=== PATIENT | female | born 1945 | race Caucasian/White ===

== ENCOUNTER 2017-07-11 18:40 | Emergency (ER) | payer MEDICARE ==
[2017-07-11 19:41] LABS: ADD URINE CULTURE? NO (NO); Bilirubin NEGATIVE (NEGATIVE); Blood NEGATIVE Ery/ul (0-5); COMPLETE URINE MICROSCOPIC? NO; Collection Type CCMS; Glucose NEGATIVE (NEGATIVE); Leukocyte Esterase NEGATIVE (NEGATIVE)
[2017-07-11] MEDS ORDERED: BABY ASPIRIN 81 MG CHEW PO ONE (19:57)
[2017-07-11] MEDS ORDERED: Sodium Chloride 0.9% 1000 ML 1,000 ML IV SCH (20:00)
--- NOTE | 2017-07-11 20:00 | ERPHSYRPT ---
- History of Present Illness Time Seen by Provider: 07/11/17 19:50 Source: patient Exam Limitations: no limitations Patient Subjective Stated Complaint: pt notes none to little urine output for last 24 hours -pt had bm yesterday - no fever no vomiting co lower abd pain states in the past this happened and pt was dx with "renal failure" states he "doesn't feel well" she has been trying to drink a lot of water Triage Nursing Assessment: pt is awake and alert and able to answer questions Physician History: FOR THE PAST 3 DAYS PT HAS HAD SUPRAPUBIC PAIN, LOW BACK PAIN, NAUSEA, SORE THROAT, LEFT EARACHE AND DYSURIA; FOR THE PAST 2 DAYS INTERMITTENT LOWER MID ANTERIOR CHEST PAIN LASTING UP TO 30 MINUTES PER EPISODE WITH SHORTNESS OFAIR. Allergies/Adverse Reactions: amoxicillin Adverse Reaction (Verified 07/11/17 19:47) Home Medications: Alprazolam 0.5 mg [xanAX 0.5 MG] 0.5 mg PO HS 03/30/12 [History] Duloxetine HCl 30 mg [Cymbalta 30 MG Capsule] 30 mg PO DAILY 03/30/12 [ History] Estradiol 1 mg PO DAILY 03/30/12 [History] Hydrocodone/APAP 10/325 mg [[place] 10/325 MG Tablet] 1 tab PO Q4H PRN PRN 03/30/12 [History] Lisinopril 2.5 mg PO DAILY 03/30/12 [History] Melatonin/Pyridoxine HCl (B6) [Melatonin 5 mg Tablet] 10 mg PO HS 03/30/12 [ History] Metformin HCl 500 mg [Glucophage 500 MG] 500 mg PO BID 03/30/12 [History] Nefazodone HCl 200 mg PO BID 03/30/12 [History] [place]-3 Fatty Acids/Fish Oil [Fish Oil 1,000 mg Softgel] 2 cap PO HS 03/30/12 [ History] Verapamil HCl [Verapamil ER] 240 mg PO HS 03/30/12 [History] Levothyroxine Sodium 25 mcg PO DAILY 03/31/12 [History] Polyethylene Glycol 3350 [Miralax] 1 capful PO DAILY 03/31/12 [History] Gabapentin [Neurontin] 300 mg PO TID 08/20/15 [History] Hx Tetanus, Diphtheria Vaccination/Date Given: No Hx Influenza Vaccination/Date Given: Yes Hx Pneumococcal Vaccination/Date Given: No - Review of Systems Ears, Nose, & Throat: Throat Pain Respiratory: Dyspnea Cardiac: Chest Pain Abdominal/Gastrointestinal: Abdominal Pain (SUPRAPUBIC PAIN), Nausea Genitourinary Symptoms: Dysuria Musculoskeletal: Back Pain (LOW) All Other Systems: Reviewed and Negative - Past Medical History Pertinent Past Medical History: Yes Neurological History: No Pertinent History ENT History: Other Cardiac History: Angina, Hypertension Respiratory History: No Pertinent History Endocrine Medical History: Diabetes Type II, Hypothyroidism Musculoskeletal History: Arthritis, Fibromyalgia, Rheumatoid Arthritis GI Medical History: No Pertinent History History: No Pertinent History Psycho-Social History: No Pertinent History Female Reproductive Disorders: Other Other Medical History: 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 - Past Surgical History Past Surgical History: Yes Neuro Surgical History: No Pertinent History Cardiac: No Pertinent History Respiratory: No Pertinent History Gastrointestinal: No Pertinent History Genitourinary: No Pertinent History Musculoskeletal: Orthopedic Surgery Female Surgical History: Hysterectomy Other Surgical History: Lower eyelid syurgery to remove cancer. - Social History Smoking Status: Never smoker Exposure to second hand smoke: No Drug Use: none Patient Lives Alone: No - Female History Hx Last Menstrual Period: na - Nursing Vital Signs Nursing Vital Signs: Initial Vital Signs Temperature 97.6 F 07/11/17 19:36 Pulse Rate 76 07/11/17 19:36 Respiratory Rate 18 07/11/17 19:36 Blood Pressure 136/64 07/11/17 19:36 O2 Sat by Pulse Oximetry 95 07/11/17 19:36 Pain Scale Pain Intensity 0 - Physical Exam General Appearance: alert Eye Exam: PERRL/EOMI Ears, Nose, Throat Exam: TMs normal, pharynx normal, moist mucous membranes Neck Exam: normal inspection Respiratory Exam: lungs clear Cardiovascular Exam: normal heart sounds Gastrointestinal/Abdomen Exam: soft, normal bowel sounds, tenderness (MILD SUPRAPUBIC TENDERNESS) Back Exam: normal range of motion Extremity Exam: other ((2) PLANTAR WARTS ON RIGHT FOREFOOT) Neurologic Exam: alert, cooperative Skin Exam: No cyanosis SpO2 Interpretation: normal SpO2: 95 Oxygen Delivery: Room Air - Course Nursing assessment & vital signs reviewed: Yes EKG Interpreted by Me: RATE (69), Sinus Rhythm, NORMAL AXIS, NORMAL INTERVALS - Radiology Exams Chest X-ray Interpretation: Interpreted by me, No Pneumonia - CT Exams Abdomen/Pelvis CT Interpretation: Tele-radiologist Report (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 RENAL ATROPHY AND LOBULATION. CATHETER IN THE BLADDER. ) Ordered Tests: Active Orders 24 hr Category Date Time Status ACCUCHECK [Accucheck] STAT Care 07/11/17 19:45 Active Soccer Ball Assembler STAT Care 07/11/17 19:58 Active Catheter-[place] STAT Care 07/11/17 19:57 Active Clean Catch Urine Specimen STAT Care 07/11/17 19:33 Active EKG-ER Only STAT Care 07/11/17 19:57 Active IV Insertion STAT Care 07/11/17 19:45 Active Oxygen-ED Only NASAL CANNULA 2 lpm Care 07/11/17 19:57 Active Pulse Oximetry (ED) STAT Care 07/11/17 19:57 Active ABDOMEN AND PELVIS W/0 CONTRAS [CT] Stat Exams 07/11/17 21:22 Taken CHEST 1 VIEW (PORTABLE) Stat Exams 07/11/17 19:58 Taken AMYLASE Stat Lab 07/11/17 19:55 Completed CBC W DIFF Stat Lab 07/11/17 19:55 Completed CMP Stat Lab 07/11/17 19:55 Completed LIPASE Stat Lab 07/11/17 19:55 Completed MAGNESIUM Stat Lab 07/11/17 19:55 Completed NT PRO BNP Stat Lab 07/11/17 19:55 Completed TROPONIN Q3H Lab 07/11/17 19:55 Completed TROPONIN Q3H Lab 07/11/17 23:00 Ordered TROPONIN Q3H Lab 07/12/17 02:00 Ordered TROPONIN Q3H Lab 07/12/17 05:00 Ordered TROPONIN Q3H Lab 07/12/17 08:00 Ordered UA W/RFX UR CULTURE Stat Lab 07/11/17 19:35 Completed Medication Summary Generic Name Dose Route Start Last Admin Trade Name Freq PRN Reason Stop Dose Admin Sodium Chloride 1,000 mls @ 100 mls/hr 07/11/17 20:00 07/11/17 20:24 Sodium Chloride 0.9% 1000 Ml IV 08/10/17 19:59 100 mls/hr .Q10H ANGEL Administration Discontinued Medications Generic Name Dose Route Start Last Admin Trade Name Freq PRN Reason Stop Dose Admin Aspirin 324 mg 07/11/17 19:57 07/11/17 20:23 Baby Aspirin 81 Mg Chew PO 07/11/17 19:58 324 mg STAT ONE Administration Aspirin Confirm 07/11/17 20:23 Baby Aspirin 81 Mg Chew Administered 07/11/17 20:24 Dose 324 mg .ROUTE .STK-MED ONE Lab/Rad Data: Laboratory Result Diagrams 07/11/17 19:55 07/11/17 19:55 Laboratory Results 07/11/17 07/11/17 07/11/17 Range/Units 19:55 19:55 19:55 WBC 8.7 (4.0-10.5) K/mm3 RBC 3.89 L (4.1-5.4) M/mm3 Hgb 12.4 (12.0-16.0) gm/dl Hct 38.1 (35-47) % MCV 97.9 (78-100) fl MCH 31.8 (26-32) pg MCHC 32.5 (32-36) g/dl RDW 13.5 (11.5-14.0) % Plt Count 166 (150-450) K/mm3 MPV 12.9 H (6-9.5) fl Gran % 55.6 (36.0-66.0) % Lymphocytes % 26.2 (24.0-44.0) % Monocytes % 9.5 (0.0-12.0) % Eosinophils % 8.4 H (0.00-5.0) % Basophils % 0.3 (0.0-0.4) % Basophils # 0.03 (0-0.4) Sodium 139 (136-145) mEq/L Potassium 4.3 (3.5-5.1) mEq/L Chloride 105 (98-107) mEq/L Carbon Dioxide 27.6 (21-32) mEq/L Anion Gap 10.2 (5-15) MEQ/L BUN 15 (9-20) mg/dL Creatinine 1.40 H (0.55-1.30) mg/dl Estimated GFR 40 ML/MIN Glucose 109 (70-110) MG/DL Calcium 8.8 (8.5-10.1) mg/dL Magnesium 1.7 L (1.8-2.4) mg/dL Total Bilirubin 0.20 (0.2-1.0) mg/dL AST 13 L (15-37) U/L ALT 14 (12-78) U/L Alkaline Phosphatase 59 (46-116) U/L Troponin I < 0.017 (0.000-0.056) ng/ml NT-Pro-B Natriuret Pep 154 H (0-125) pg/ml Serum Total Protein 6.8 (6.4-8.2) gm/dL Albumin 3.4 (3.4-5.0) g/dL Amylase 60 (25-115) U/L Lipase 126 (73-393) U/L Ur Collection Type Urine Color (YELLOW) Urine Appearance (CLEAR) Urine pH (5-6) Ur Specific [place] (1.005-1.025) Urine Protein (Negative) Urine Ketones (NEGATIVE) Urine Blood (0-5) Dionisio/ul Urine Nitrite (NEGATIVE) Urine Bilirubin (NEGATIVE) Urine Urobilinogen (0-1) mg/dL Ur Leukocyte Esterase (NEGATIVE) Urine Glucose (NEGATIVE) mg/dL Specimen Received 07/11/17 Range/Units 19:35 WBC (4.0-10.5) K/mm3 RBC (4.1-5.4) M/mm3 Hgb (12.0-16.0) gm/dl Hct (35-47) % MCV (78-100) fl MCH (26-32) pg MCHC (32-36) g/dl RDW (11.5-14.0) % Plt Count (150-450) K/mm3 MPV (6-9.5) fl Gran % (36.0-66.0) % Lymphocytes % (24.0-44.0) % Monocytes % (0.0-12.0) % Eosinophils % (0.00-5.0) % Basophils % (0.0-0.4) % Basophils # (0-0.4) Sodium (136-145) mEq/L Potassium (3.5-5.1) mEq/L Chloride (98-107) mEq/L Carbon Dioxide (21-32) mEq/L Anion Gap (5-15) MEQ/L BUN (9-20) mg/dL Creatinine (0.55-1.30) mg/dl Estimated GFR ML/MIN Glucose (70-110) MG/DL Calcium (8.5-10.1) mg/dL Magnesium (1.8-2.4) mg/dL Total Bilirubin (0.2-1.0) mg/dL AST (15-37) U/L ALT (12-78) U/L Alkaline Phosphatase (46-116) U/L Troponin I (0.000-0.056) ng/ml NT-Pro-B Natriuret Pep (0-125) pg/ml Serum Total Protein (6.4-8.2) gm/dL Albumin (3.4-5.0) g/dL Amylase (25-115) U/L Lipase (73-393) U/L Ur Collection Type CCMS Urine Color YELLOW (YELLOW) Urine Appearance CLEAR (CLEAR) Urine pH 5.0 (5-6) Ur Specific [place] 1.015 (1.005-1.025) Urine Protein NEGATIVE (Negative) Urine Ketones NEGATIVE (NEGATIVE) Urine Blood NEGATIVE (0-5) Dionisio/ul Urine Nitrite NEGATIVE (NEGATIVE) Urine Bilirubin NEGATIVE (NEGATIVE) Urine Urobilinogen NORMAL (0-1) mg/dL Ur Leukocyte Esterase NEGATIVE (NEGATIVE) Urine Glucose NEGATIVE (NEGATIVE) mg/dL Specimen Received [id number] - Departure Time of Disposition: 22:36 Departure Disposition: Home Clinical Impression: ABDOMINAL PAIN, URINARY RETENTION, MILD HYPOMAGNESEMIA, HTN, DM, HYPOTHYROIDISM , ARTHRITIS, FIBROMYALGIA, RA Condition: Stable Critical Care Time: No Referrals: CORNELIO BELLO [Primary Care Provider] - Instructions: Urinary Retention in Women Additional Instructions: FOLLOW UP WITH PRIVATE DOCTOR TOMORROW. KEEP KLEIN CATHETER IN PLACE WITH LEG BAG UNTIL YOU SEE YOUR DOCTOR.
[2017-07-11 20:08] LABS: BASOPHIL % 0.3 % (0.0-0.4); Eosinophil % 8.4 % (0.00-5.0); Granulocytes % 55.6 % (36.0-66.0); Lymphocytes % 26.2 % (24.0-44.0); Mean Cell Volume 97.9 fl (78-100); Mean Platelet Volume 12.9 fl (6-9.5); Monocytes % 9.5 % (0.0-12.0); Platelet Count 166 K/mm3 (150-450); Red Blood Count 3.89 M/mm3 (4.1-5.4); Red Cell Distribution Width 13.5 % (11.5-14.0); White Blood Count 8.7 K/mm3 (4.0-10.5)
[2017-07-11 20:11] LABS: Mean Corpuscular Hemoglobin 31.8 pg (26-32)
[2017-07-11 20:21] LABS: ALBUMIN 3.4 g/dL (3.4-5.0); ANION GAP 10.2 MEQ/L (5-15); BILIRUBIN,TOTAL 0.2 mg/dL (0.2-1.0); Carbon Dioxide 27.6 mEq/L (21-32); MAGNESIUM 1.7 mg/dL (1.8-2.4); Potassium 4.3 mEq/L (3.5-5.1); Total Protein 6.8 gm/dL (6.4-8.2)
[2017-07-11] MEDS ORDERED: Sodium Chloride 0.9% 1000 ML 1,000 ML ONE (20:23)
[2017-07-11] MEDS ORDERED: BABY ASPIRIN 81 MG CHEW ONE (20:23)
[2017-07-11] MEDS ORDERED: MAG-OX 400 ONE (22:44)
[2017-07-11 22:48] VITALS: BP 131/63; PULSE 63; O2SAT 96
--- NOTE | 2017-07-12 09:06 | XRAY ---
Indication: Lower abdominal pain. No urine output in 24 hours. History of renal failure. Multiple contiguous axial images obtained through the abdomen and pelvis without contrast as ordered.. Comparison: None. Lung bases demonstrates minimal bibasilar dependent atelectasis and right lower lobe calcified granuloma. Heart is not enlarged. Noncontrasted stomach and bowel loops appear nonobstructed. There is mild diffuse scattered colonic fecal debris throughout. There is a Roy catheter emptying the urinary bladder. No free fluid/air. 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 Previous hysterectomy. Remaining liver, gallbladder, pancreas, spleen, adrenal glands, kidneys, and ureters appear unremarkable for noncontrast exam. Mild aortoiliac calcifications without AAA. Osseous structures intact with mild degenerative changes throughout the spine. Small supraumbilical and umbilical fatty ventral hernias. Impression: 1. Left renal angiomyolipoma. Roy catheter in situ. 2. Fecal stasis without obstruction. 3. Small supraumbilical and umbilical fatty hernias. 4. No acute intra-abdominal/pelvic abnormalities on this noncontrast exam. Comment: Preliminary interpretation was made by [facility]. No discrepancy. CTDI 19.60
--- NOTE | 2017-07-12 09:07 | XRAY ---
Indication: Chest pain. Comparison: February 26, 2007. Portable chest remains clear. Heart and mediastinal structures stable and within normal limits. Bony thorax intact again with mild degenerative changes. Impression: Stable nonacute chest with chronic feature.
[2017-07-12] MEDS ORDERED: MAG-OX 400 PO SCH (10:00)
== END 2017-07-11 23:13 | disposition home or self-care (01) ==
LOC: ED 18:40
DX: R10.9 Unspecified abdominal pain (principal); R33.9 Retention of urine, unspecified; E83.42 Hypomagnesemia; I10 Essential (primary) hypertension; E11.9 Type 2 diabetes mellitus without complications; E03.9 Hypothyroidism, unspecified; M19.90 Unspecified osteoarthritis, unspecified site; M79.7 Fibromyalgia; M06.9 Rheumatoid arthritis, unspecified; M54.5 Low back pain; R11.10 Vomiting, unspecified; J02.9 Acute pharyngitis, unspecified; H92.02 Otalgia, left ear; R30.0 Dysuria; R07.89 Other chest pain; Z79.899 Other long term (current) drug therapy
CPT/HCPCS: 36000; 36415; 51702; 71010; 74176; 80053; 81002; 82150; 82962; 83690; 83735; 83880; 84484; 85025; 93005; 93041; 96360; 99284; A9270-GY

== ENCOUNTER 2017-11-08 18:23 | Emergency (ER) | payer MEDICARE ==
[2017-11-08] MEDS ORDERED: Sodium Chloride 0.9% 1000 ML 1,000 ML IV SCH (18:30)
[2017-11-08] MEDS ORDERED: BABY ASPIRIN 81 MG CHEW PO ONE (18:30)
[2017-11-08] MEDS ORDERED: Nitrostat 0.4 MG (ED) SL ONE ×2 (18:30→18:48)
--- NOTE | 2017-11-08 18:39 | ERPHSYRPT ---
- History of Present Illness Source: patient Exam Limitations: no limitations Hx Tetanus, Diphtheria Vaccination/Date Given: No Hx Influenza Vaccination/Date Given: Yes Hx Pneumococcal Vaccination/Date Given: No <DEON BOB - Last Filed: 11/08/17 19:09> <KARIME DAMIAN - Last Filed: 11/08/17 21:20> - History of Present Illness Time Seen by Provider: 11/08/17 18:23 Physician History: FOR THE PAST 2 DAYS PT HAS HAD DIARRHEA X7, CHILLS, INCREASED URINARY FREQUENCY , DIZZINESS, EARACHES AND HEADACHE. FOR THE PAST 4.5 HOURS PT HAS HAD CONSTANT MID-RIGHT CHEST PRESSURE/BURNING, SHORTNESS OF AIR AND EPIGASTRIC BURNING. ( DEON BOB) Allergies/Adverse Reactions: amoxicillin Adverse Reaction (Verified 11/08/17 18:38) Home Medications: Alprazolam 0.5 mg [xanAX 0.5 MG] 0.5 mg PO HS 03/30/12 [History] Duloxetine HCl 30 mg [Cymbalta 30 MG Capsule] 30 mg PO DAILY 03/30/12 [ History] Estradiol 1 mg PO DAILY 03/30/12 [History] Hydrocodone/APAP 10/325 mg [[place] 10/325 MG Tablet] 1 tab PO Q4H PRN PRN 03/30/12 [History] Lisinopril 2.5 mg PO DAILY 03/30/12 [History] Melatonin/Pyridoxine HCl (B6) [Melatonin 5 mg Tablet] 10 mg PO HS 03/30/12 [ History] Metformin HCl 500 mg [Glucophage 500 MG] 500 mg PO BID 03/30/12 [History] [place]-3 Fatty Acids/Fish Oil [Fish Oil 1,000 mg Softgel] 2 cap PO HS 03/30/12 [ History] Verapamil HCl [Verapamil ER] 240 mg PO HS 03/30/12 [History] Levothyroxine Sodium 25 mcg PO DAILY 03/31/12 [History] Polyethylene Glycol 3350 [Miralax] 1 capful PO DAILY 03/31/12 [History] Gabapentin [Neurontin] 300 mg PO TID 06/11/15 [History] - Review of Systems Constitutional: Chills Ears, Nose, & Throat: Ear Pain Respiratory: Dyspnea Cardiac: Other (CHEST PRESSURE/BURNING) Abdominal/Gastrointestinal: Abdominal Pain, Nausea, Diarrhea Genitourinary Symptoms: Frequency Neurological: Dizziness, Headache All Other Systems: Reviewed and Negative <DEON BOB - Last Filed: 11/08/17 19:09> - Past Medical History Pertinent Past Medical History: Yes Neurological History: No Pertinent History ENT History: Other Cardiac History: Angina, Hypertension Respiratory History: No Pertinent History Endocrine Medical History: Diabetes Type II, Hypothyroidism Musculoskeletal History: Arthritis, Fibromyalgia, Rheumatoid Arthritis GI Medical History: No Pertinent History History: No Pertinent History Psycho-Social History: No Pertinent History Female Reproductive Disorders: Other Other Medical History: 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 - Past Surgical History Past Surgical History: Yes Neuro Surgical History: No Pertinent History Cardiac: No Pertinent History Respiratory: No Pertinent History Gastrointestinal: No Pertinent History Genitourinary: No Pertinent History Musculoskeletal: Orthopedic Surgery Female Surgical History: Hysterectomy Other Surgical History: Lower eyelid syurgery to remove cancer. - Social History Smoking Status: Never smoker Exposure to second hand smoke: No Drug Use: none Patient Lives Alone: No <DEON BOB - Last Filed: 11/08/17 19:09> - Physical Exam General Appearance: alert, anxiety Eye Exam: PERRL/EOMI Ears, Nose, Throat Exam: TMs normal, moist mucous membranes, pharyngeal erythema (MINIMAL) Neck Exam: normal inspection, No carotid bruit Respiratory Exam: lungs clear Cardiovascular Exam: normal heart sounds Gastrointestinal/Abdomen Exam: soft, normal bowel sounds Back Exam: normal range of motion Extremity Exam: normal inspection, No pedal edema Neurologic Exam: alert, cooperative Skin Exam: warm, dry <DEON BOB - Last Filed: 11/08/17 19:09> - Nursing Vital Signs Nursing Vital Signs: Initial Vital Signs Temperature 97.3 F 11/08/17 18:24 Pulse Rate 74 11/08/17 18:24 Respiratory Rate 20 11/08/17 18:24 Blood Pressure 200/96 11/08/17 18:24 O2 Sat by Pulse Oximetry 97 11/08/17 18:24 Pain Scale Pain Intensity 2 - Course Nursing assessment & vital signs reviewed: Yes EKG Interpreted by Me: RATE (72), NORMAL AXIS, Non-specific ST Changes, Other ( SINUS ARRHYTHMIA) <DEON BOB - Last Filed: 11/08/17 19:09> - Radiology Exams Chest X-ray Interpretation: Interpreted by me, Negative <KARIME DAMIAN - Last Filed: 11/08/17 21:20> Ordered Tests: Active Orders 24 hr Category Date Time Status Director [employer] STAT Care 11/08/17 18:31 Active EKG-ER Only STAT Care 11/08/17 18:30 Active IV Insertion STAT Care 11/08/17 18:30 Active Oxygen-ED Only NASAL CANNULA 2 lpm Care 11/08/17 18:30 Active Pulse Oximetry (ED) STAT Care 11/08/17 18:30 Active cath [Cath for Specimen-Straight] STAT Care 11/08/17 19:09 Active CHEST 1 VIEW (PORTABLE) Stat Exams 11/08/17 18:31 Taken AMYLASE Stat Lab 11/08/17 18:48 Completed CBC W DIFF Stat Lab 11/08/17 18:48 Completed CMP Stat Lab 11/08/17 18:48 Completed CULTURE, THROAT Stat Lab 11/08/17 18:49 Received CULTURE,URINE Stat Lab 11/08/17 18:31 Received LIPASE Stat Lab 11/08/17 18:48 Completed MAGNESIUM Stat Lab 11/08/17 18:48 Completed NT PRO BNP Stat Lab 11/08/17 18:48 Completed STREP SCREEN-BETA A Stat Lab 11/08/17 18:49 Completed TROPONIN Q3H Lab 11/08/17 18:48 Completed TROPONIN Q3H Lab 11/08/17 21:45 Ordered TROPONIN Q3H Lab 11/09/17 00:45 Ordered TROPONIN Q3H Lab 11/09/17 03:45 Ordered TROPONIN Q3H Lab 11/09/17 06:45 Ordered UA W/ MICROSCOPIC Stat Lab 11/08/17 18:31 Completed Medication Summary Generic Name Dose Route Start Last Admin Trade Name Freq PRN Reason Stop Dose Admin Sodium Chloride 1,000 mls @ 100 mls/hr 11/08/17 18:30 11/08/17 18:53 Sodium Chloride 0.9% 1000 Ml IV 12/08/17 18:29 100 mls/hr .Q10H ANGEL Administration Discontinued Medications Generic Name Dose Route Start Last Admin Trade Name Freq PRN Reason Stop Dose Admin Al Hydrox/Mg Hydrox/Simethicone Confirm 11/08/17 19:16 Maalox Es 30 Ml Unit Dose Administered 11/08/17 19:17 Dose 30 ml .ROUTE .STK-MED ONE Aspirin 324 mg 11/08/17 18:30 11/08/17 18:52 Baby Aspirin 81 Mg Chew PO 11/08/17 18:31 324 mg STAT ONE Administration Aspirin Confirm 11/08/17 18:48 Baby Aspirin 81 Mg Chew Administered 11/08/17 18:49 Dose 324 mg .ROUTE .STK-MED ONE Diazepam 10 mg 11/08/17 18:43 11/08/17 18:53 Valium 5 Mg PO 11/08/17 18:44 10 mg STAT ONE Administration Diazepam Confirm 11/08/17 18:49 Valium 5 Mg Administered 11/08/17 18:50 Dose 10 mg .ROUTE .STK-MED ONE Enoxaparin Sodium 75 mg 11/08/17 20:55 11/08/17 21:12 Enoxaparin Sodium SQ 11/08/17 20:56 75 mg STAT ONE Administration Enoxaparin Sodium Confirm 11/08/17 21:08 Enoxaparin Sodium Administered 11/08/17 21:09 Dose 80 mg SQ .STK-MED ONE Furosemide 20 mg 11/09/17 20:56 Lasix 20 Mg/2 Ml IV 11/09/17 20:57 NOW ONE Furosemide 20 mg 11/08/17 21:02 11/08/17 21:11 Lasix 40 Mg/4 Ml IV 11/08/17 21:03 20 mg STAT ONE Administration Furosemide Confirm 11/08/17 21:08 Lasix 40 Mg/4 Ml Administered 11/08/17 21:09 Dose 40 mg .ROUTE .STK-MED ONE Lidocaine HCl Confirm 11/08/17 19:16 Xylocaine Hcl Viscous * Administered 11/08/17 19:17 Dose 15 ml .ROUTE .STK-MED ONE Magnesium Hydroxide 45 ml 11/08/17 19:13 11/08/17 19:18 Gi Cocktail 45 Ml (Maalox/Lidocaine) PO 11/08/17 19:14 45 ml STAT ONE Administration Nitroglycerin 0.4 mg 11/08/17 18:30 11/08/17 18:53 Nitrostat 0.4 Mg (Ed) SL 11/08/17 18:31 0.4 mg STAT ONE Administration Nitroglycerin Confirm 11/08/17 18:48 Nitrostat 0.4 Mg (Ed) Administered 11/08/17 18:49 Dose 0.4 mg SL .STK-MED ONE Nitroglycerin 1 gm 11/08/17 20:03 11/08/17 20:08 Nitro-Bid 2% Ud Packets TOP 11/08/17 20:04 1 gm STAT ONE Administration Nitroglycerin Confirm 11/08/17 20:06 Nitro-Bid 2% Ud Packets Administered 11/08/17 20:07 Dose 1 gm .ROUTE .STK-MED ONE Nitroglycerin Confirm 11/08/17 20:09 Nitro-Bid 2% Ud Packets Administered 11/08/17 20:10 Dose 1 gm .ROUTE .STK-MED ONE Lab/Rad Data: Laboratory Result Diagrams 11/08/17 18:48 11/08/17 18:48 Laboratory Results 11/08/17 11/08/17 11/08/17 Range/Units 18:49 18:49 18:48 WBC (4.0-10.5) K/mm3 RBC (4.1-5.4) M/mm3 Hgb (12.0-16.0) gm/dl Hct (35-47) % MCV (78-100) fl MCH (26-32) pg MCHC (32-36) g/dl RDW (11.5-14.0) % Plt Count (150-450) K/mm3 MPV (6-9.5) fl Gran % (36.0-66.0) % Lymphocytes % (24.0-44.0) % Monocytes % (0.0-12.0) % Eosinophils % (0.00-5.0) % Basophils % (0.0-0.4) % Basophils # (0-0.4) Sodium (136-145) mEq/L Potassium (3.5-5.1) mEq/L Chloride (98-107) mEq/L Carbon Dioxide (21-32) mEq/L Anion Gap (5-15) MEQ/L BUN (9-20) mg/dL Creatinine (0.55-1.30) mg/dl Estimated GFR ML/MIN Glucose (70-110) MG/DL Calcium (8.5-10.1) mg/dL Magnesium (1.8-2.4) mg/dL Total Bilirubin (0.2-1.0) mg/dL AST (15-37) U/L ALT (12-78) U/L Alkaline Phosphatase (46-116) U/L Troponin I 0.223 H* (0.000-0.056) ng/ml NT-Pro-B Natriuret Pep (0-125) pg/ml Serum Total Protein (6.4-8.2) gm/dL Albumin (3.4-5.0) g/dL Amylase (25-115) U/L Lipase (73-393) U/L Ur Collection Type Urine Color (YELLOW) Urine Appearance (CLEAR) Urine pH (5-6) Ur Specific [place] (1.005-1.025) Urine Protein (Negative) Urine Ketones (NEGATIVE) Urine Blood (0-5) Dionisio/ul Urine Nitrite (NEGATIVE) Urine Bilirubin (NEGATIVE) Urine Urobilinogen (0-1) mg/dL Ur Leukocyte Esterase (NEGATIVE) Urine Microscopic RBC (0-2) /HPF Urine Microscopic WBC (0-5) /HPF Ur Epithelial Cells (FEW) /HPF Amorphous Crystals (NEGATIVE) /HPF Urine Bacteria (NEGATIVE) /HPF Hyaline Casts (0-2) /LPF Urine Mucus (NEGATIVE) /HPF Urine Culture Reflexed (NO) Urine Glucose (NEGATIVE) mg/dL Influenza Type A Ag NEGATIVE (NEGATIVE) Influenza Type B Ag NEGATIVE (NEGATIVE) RSV (PCR) NEGATIVE (Negative) Streptococcus Screen NEGATIVE (Negative) Specimen Received 11/08/17 11/08/17 11/08/17 Range/Units 18:48 18:48 18:31 WBC 15.6 H (4.0-10.5) K/mm3 RBC 5.00 (4.1-5.4) M/mm3 Hgb 15.6 (12.0-16.0) gm/dl Hct 46.3 (35-47) % MCV 92.6 (78-100) fl MCH 31.2 (26-32) pg MCHC 33.7 (32-36) g/dl RDW 12.2 (11.5-14.0) % Plt Count 258 (150-450) K/mm3 MPV 12.9 H (6-9.5) fl Gran % 88.9 H (36.0-66.0) % Lymphocytes % 5.9 L (24.0-44.0) % Monocytes % 5.1 (0.0-12.0) % Eosinophils % 0.0 (0.00-5.0) % Basophils % 0.1 (0.0-0.4) % Basophils # 0.02 (0-0.4) Sodium 139 (136-145) mEq/L Potassium 3.4 L (3.5-5.1) mEq/L Chloride 100 (98-107) mEq/L Carbon Dioxide 25.0 (21-32) mEq/L Anion Gap 17.5 H (5-15) MEQ/L BUN 19 (9-20) mg/dL Creatinine 1.30 (0.55-1.30) mg/dl Estimated GFR 43 ML/MIN Glucose 170 H (70-110) MG/DL Calcium 9.8 (8.5-10.1) mg/dL Magnesium 1.6 L (1.8-2.4) mg/dL Total Bilirubin 0.50 (0.2-1.0) mg/dL AST 44 H (15-37) U/L ALT 26 (12-78) U/L Alkaline Phosphatase 60 (46-116) U/L Troponin I (0.000-0.056) ng/ml NT-Pro-B Natriuret Pep 1312 H (0-125) pg/ml Serum Total Protein 8.3 H (6.4-8.2) gm/dL Albumin 4.2 (3.4-5.0) g/dL Amylase 39 (25-115) U/L Lipase 95 (73-393) U/L Ur Collection Type CATH Urine Color YELLOW (YELLOW) Urine Appearance SLIGHTLY CLOUDY (CLEAR) Urine pH 5.0 (5-6) Ur Specific [place] 1.020 (1.005-1.025) Urine Protein 100 (Negative) Urine Ketones MODERATE (NEGATIVE) Urine Blood 250 (0-5) Dionisio/ul Urine Nitrite NEGATIVE (NEGATIVE) Urine Bilirubin NEGATIVE (NEGATIVE) Urine Urobilinogen NORMAL (0-1) mg/dL Ur Leukocyte Esterase NEGATIVE (NEGATIVE) Urine Microscopic RBC 5-10 (0-2) /HPF Urine Microscopic WBC 2-5 (0-5) /HPF Ur Epithelial Cells MODERATE (FEW) /HPF Amorphous Crystals MODERATE (NEGATIVE) /HPF Urine Bacteria MODERATE (NEGATIVE) /HPF Hyaline Casts 0-2 (0-2) /LPF Urine Mucus SLIGHT (NEGATIVE) /HPF Urine Culture Reflexed YES (NO) Urine Glucose 50 (NEGATIVE) mg/dL Influenza Type A Ag (NEGATIVE) Influenza Type B Ag (NEGATIVE) RSV (PCR) (Negative) Streptococcus Screen (Negative) Specimen Received 11/08/17 1900 <DEON BOB - Last Filed: 11/08/17 19:09> - Progress Progress: improved <KARIME DAMIAN - Last Filed: 11/08/17 21:20> - Progress Progress Note: 11/08/17 19:[address] DAMIAN @ 1905. (DEON BOB) 11/08/17 21:17 Pt is more comfortable, states her pain in down 3/10 now, denies SOB, afebrile and stable. I called Dr Romero at [facility], discussed the results and patient's current condition, he accepted her to be transferred there for cardiology evaluation, with NonSTEMI, she was started on Lovenox, and Lasix 20 mg iv given as well as 1 inch NTP. I informed patient and her about the need to be transferred to [facility], they agreed. (KARIME DAMIAN) <DEON BOB - Last Filed: 11/08/17 19:09> - Departure Time of Disposition: 21:19 Departure Disposition: Transfer Critical Care Time: No <KARIME DAMIAN - Last Filed: 11/08/17 21:20> - Departure Clinical Impression: Non-ST elevated myocardial infarction (non-STEMI) Condition: Stable Referrals: CORNELIO BELLO [Primary Care Provider] -
[2017-11-08] MEDS ORDERED: Valium 5 MG PO ONE (18:43)
[2017-11-08] MEDS ORDERED: BABY ASPIRIN 81 MG CHEW ONE (18:48)
[2017-11-08] MEDS ORDERED: Valium 5 MG ONE (18:49)
[2017-11-08] MEDS ORDERED: Sodium Chloride 0.9% 1000 ML 1,000 ML ONE (18:49)
[2017-11-08 18:54] LABS: BASOPHIL % 0.1 % (0.0-0.4); Basophil (Absolute #) 0.02 (0-0.4); Eosinophil (Absolute #) 0 (0-0.5); Granulocyte Absolute (ANC) 13.84 (1.4-6.9); Granulocytes % 88.9 % (36.0-66.0); Hematocrit 46.3 % (35-47); Hemoglobin 15.6 gm/dl (12.0-16.0); Lymphocyte (Absolute #) 0.92 (1.0-4.6); Lymphocytes % 5.9 % (24.0-44.0); Mean Cell Volume 92.6 fl (78-100); Mean Corpuscular Hemoglobin 31.2 pg (26-32); Mean Corpuscular Hgb Concent. 33.7 g/dl (32-36); Mean Platelet Volume 12.9 fl (6-9.5); Monocyte (Absolute #) 0.79 (0.0-1.3); Monocytes % 5.1 % (0.0-12.0); Platelet Count 258 K/mm3 (150-450); Red Cell Distribution Width 12.2 % (11.5-14.0); White Blood Count 15.6 K/mm3 (4.0-10.5)
[2017-11-08] MEDS ORDERED: GI COCKTAIL 45 ML (Maalox/Lidocaine) PO ONE (19:13)
[2017-11-08] MEDS ORDERED: XYLOCAINE HCl Viscous ONE (19:16)
[2017-11-08] MEDS ORDERED: MAALOX ES 30 ML UNIT DOSE ONE (19:16)
[2017-11-08 19:38] LABS: Appearance SLIGHTLY CLOUDY (CLEAR); Bilirubin NEGATIVE (NEGATIVE); Blood 250 Ery/ul (0-5); Glucose 50 mg/dL (NEGATIVE); Ketones MODERATE (NEGATIVE); Leukocyte Esterase NEGATIVE (NEGATIVE); Nitrite NEGATIVE (NEGATIVE); Protein,Urine Dip 100 (Negative); Urobilinogen NORMAL mg/dL (0-1)
[2017-11-08 19:39] LABS: Bacteria MODERATE /HPF (NEGATIVE); Epithelial Cells MODERATE /HPF (FEW); Hyaline Casts 0-2 /LPF (0-2); Mucus SLIGHT /HPF (NEGATIVE)
[2017-11-08 19:40] LABS: Amourphous Crystal MODERATE /HPF (NEGATIVE)
[2017-11-08 19:42] LABS: ALBUMIN 4.2 g/dL (3.4-5.0); ANION GAP 17.5 MEQ/L (5-15); BILIRUBIN,TOTAL 0.5 mg/dL (0.2-1.0); Calcium 9.8 mg/dL (8.5-10.1); Creatinine 1 1.3 mg/dl (0.55-1.30); MAGNESIUM 1.6 mg/dL (1.8-2.4); Potassium 3.4 mEq/L (3.5-5.1); Total Protein 8.3 gm/dL (6.4-8.2)
[2017-11-08 19:55] LABS: INFLUENZA A NEGATIVE (NEGATIVE); INFLUENZA B NEGATIVE (NEGATIVE); RESPIRATORY SYNCTIAL VIRUS NEGATIVE (Negative)
[2017-11-08] MEDS ORDERED: NITRO-BID 2% UD PACKETS TOP ONE (20:03)
[2017-11-08] MEDS ORDERED: NITRO-BID 2% UD PACKETS ONE ×2 (20:06→20:09)
[2017-11-08 20:12] VITALS: O2SAT 98
[2017-11-08] MEDS ORDERED: ENOXAPARIN SODIUM SQ ONE ×2 (20:55→21:08)
[2017-11-08] MEDS ORDERED: Lasix 40 MG/4 ML IV ONE (21:02)
[2017-11-08] MEDS ORDERED: Lasix 40 MG/4 ML ONE (21:08)
[2017-11-08 21:54] VITALS: BP 169/137; PULSE 80
--- NOTE | 2017-11-09 08:36 | XRAY ---
Indication: Chest pain and short of breath. Comparison: July 11, 2017. Portable chest again demonstrates normal heart and lungs. Bony thorax intact again with mild degenerative changes. No new/acute findings.
[2017-11-09] MEDS ORDERED: Lasix 20 MG/2 ML IV ONE (20:56)
== END 2017-11-08 21:55 | disposition short-term general hospital (02) ==
LOC: ED 18:23
DX: I21.4 Non-ST elevation (NSTEMI) myocardial infarction (principal); R19.7 Diarrhea, unspecified; R42 Dizziness and giddiness; Z79.899 Other long term (current) drug therapy; R35.0 Frequency of micturition; R51 Headache; H92.03 Otalgia, bilateral; E11.9 Type 2 diabetes mellitus without complications
CPT/HCPCS: 36000; 36415; 71045; 80053; 81000; 82150; 83690; 83735; 83880; 84484; 85025; 87070; 87086; 87430; 87631; 93005; 93041; 96360; 96361; 99285; J1650; J1940; P9612; A9270-GY

== ENCOUNTER 2018-08-02 14:00 | Emergency (ER) | payer MEDICARE, SELFPAY ==
[2018-08-02 14:23] VITALS: BP 127/72; PULSE 57; O2SAT 95
--- NOTE | 2018-08-02 14:34 | ERPHSYRPT ---
- History of Present Illness Time Seen by Provider: 08/02/18 14:15 Historian: patient, family Exam Limitations: no limitations Patient Subjective Stated Complaint: states has not had BM x 1 week. has hx IBS Triage Nursing Assessment: alert and in no distress. abdomen. round soft but she states shes bloated. + hypoactive BSx4. states has hx IBS. states has had 2 small BM. able to eat with no difficulty. Physician History: 73 y/o white female, with h/o irritable bowel syndrome, presents with only 2 small bm in a week and abdominal distension. pt concerned about a bowel obstruction. no n/v/d. pt intermittently has these same sx but never this significant. pt has been eating without issues. Timing/Duration: week(s) (1) Activities at Onset: none Quality: fullness, pressure Abdominal Pain Onset Location: generalized abdomen Severity of Pain-Max: mild Severity of Pain-Current: mild Associated Symptoms: No chest pain, No diaphoresis, No diarrhea, No headache, No loss of appetite, No nausea, No shortness of breath, No syncope, No vomiting , No weakness Previous symptoms: same symptoms as today (not as severe) Allergies/Adverse Reactions: amoxicillin Adverse Reaction (Verified 11/08/17 18:38) Home Medications: Alprazolam 0.5 mg [xanAX 0.5 MG] 0.5 mg PO HS 03/30/12 [History] Duloxetine HCl 30 mg [Cymbalta 30 MG Capsule] 30 mg PO DAILY 03/30/12 [ History] Estradiol 1 mg PO DAILY 03/30/12 [History] Hydrocodone/APAP 10/325 mg [[place] 10/325 MG Tablet] 1 tab PO Q4H PRN PRN 03/30/12 [History] Lisinopril 2.5 mg PO DAILY 03/30/12 [History] Melatonin/Pyridoxine HCl (B6) [Melatonin 5 mg Tablet] 10 mg PO HS 03/30/12 [ History] Metformin HCl 500 mg [Glucophage 500 MG] 500 mg PO BID 03/30/12 [History] [employer]-3 Fatty Acids/Fish Oil [Fish Oil 1,000 mg Softgel] 2 cap PO HS 03/30/12 [ History] Verapamil HCl [Verapamil ER] 240 mg PO HS 03/30/12 [History] Levothyroxine Sodium 25 mcg PO DAILY 03/31/12 [History] Polyethylene Glycol 3350 [Miralax] 1 capful PO DAILY 03/31/12 [History] Gabapentin [Neurontin] 300 mg PO TID 06/11/15 [History] Hx Tetanus, Diphtheria Vaccination/Date Given: No Hx Influenza Vaccination/Date Given: Yes Hx Pneumococcal Vaccination/Date Given: No - Review of Systems Constitutional: No Symptoms, No Fever, No Chills Eyes: No Symptoms, No Discharge, No Eye Pain Ears, Nose, & Throat: No Symptoms, No Ear Pain Respiratory: No Symptoms, No Cough, No Dyspnea, No Stridor, No Wheezing Cardiac: No Symptoms, No Chest Pain, No Palpitations, No Syncope Abdominal/Gastrointestinal: Abdominal Pain, Constipation, No Nausea, No Vomiting , No Diarrhea Genitourinary Symptoms: No Symptoms, No Dysuria, No Frequency, No Hematuria Musculoskeletal: No Symptoms Skin: No Symptoms Neurological: No Symptoms Psychological: No Symptoms Endocrine: No Symptoms Hematologic/Lymphatic: No Symptoms Immunological/Allergic: No Symptoms All Other Systems: Reviewed and Negative - Past Medical History Pertinent Past Medical History: Yes Neurological History: No Pertinent History ENT History: Other Cardiac History: Angina, Hypertension Respiratory History: No Pertinent History Endocrine Medical History: Diabetes Type II, Hypothyroidism Musculoskeletal History: Arthritis, Fibromyalgia, Rheumatoid Arthritis GI Medical History: No Pertinent History History: No Pertinent History Psycho-Social History: No Pertinent History Female Reproductive Disorders: Other Other Medical History: 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 - Past Surgical History Past Surgical History: Yes Neuro Surgical History: No Pertinent History Cardiac: No Pertinent History Respiratory: No Pertinent History Gastrointestinal: No Pertinent History Genitourinary: No Pertinent History Musculoskeletal: Orthopedic Surgery Female Surgical History: Hysterectomy Other Surgical History: Lower eyelid syurgery to remove cancer. - Social History Smoking Status: Never smoker Exposure to second hand smoke: No Drug Use: none Patient Lives Alone: No - Female History Hx Now: No - Nursing Vital Signs Nursing Vital Signs: Initial Vital Signs Temperature 98.0 F 08/02/18 14:17 Pulse Rate 57 L 08/02/18 14:17 Respiratory Rate 18 08/02/18 14:17 Blood Pressure 127/72 08/02/18 14:17 O2 Sat by Pulse Oximetry 95 08/02/18 14:17 Pain Scale Pain Intensity 0 - Physical Exam General Appearance: mild distress, alert, anxiety Eye Exam: PERRL/EOMI, eyes nml inspection Ears, Nose, Throat Exam: normal ENT inspection, moist mucous membranes Neck Exam: normal inspection, non-tender, supple, full range of motion Respiratory Exam: normal breath sounds, lungs clear, airway intact, No chest tenderness, No respiratory distress, No accessory muscle use, No rhonchi, No wheezing, No stridor Cardiovascular Exam: regular rate/rhythm, normal heart sounds, normal peripheral pulses Gastrointestinal/Abdomen Exam: soft, normal bowel sounds, No tenderness, No guarding, No rebound Pelvic Exam: not done Rectal Exam: not done Back Exam: normal inspection, normal range of motion, No CVA tenderness, No vertebral tenderness Extremity Exam: normal inspection, normal range of motion, pelvis stable Neurologic Exam: alert, oriented x 3, 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, 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, normal mood/affect Skin Exam: normal color, warm, dry Lymphatic Exam: No adenopathy SpO2 Interpretation: normal SpO2: 95 Oxygen Delivery: Room Air - Course Nursing assessment & vital signs reviewed: Yes Ordered Tests: Active Orders 24 hr Category Date Time Status Clean Catch Urine Specimen STAT Care 08/02/18 14:44 Active ABDOMEN AND PELVIS W/0 CONTRAS [CT] Stat Exams 08/02/18 14:45 Completed AMYLASE Stat Lab 08/02/18 15:10 Completed CBC W DIFF Stat Lab 08/02/18 15:10 Completed CMP Stat Lab 08/02/18 15:10 Completed CULTURE,URINE Stat Lab 08/02/18 17:00 Received LIPASE Stat Lab 08/02/18 15:10 Completed Lactic Acid Stat Lab 08/02/18 14:50 Completed UA W/RFX UR CULTURE Stat Lab 08/02/18 17:00 Completed Medication Summary Generic Name Dose Route Start Last Admin Trade Name Freq PRN Reason Stop Dose Admin Ceftriaxone Sodium/Dextrose 1 g in 50 mls @ 100 mls/hr 08/02/18 17:48 Rocephin 1 Gm-D5w 50 Ml Bag IV 08/02/18 18:17 STAT STA Discontinued Medications Generic Name Dose Route Start Last Admin Trade Name Freq PRN Reason Stop Dose Admin Sodium Chloride 1,000 mls @ 999 mls/hr 08/02/18 14:44 08/02/18 16:22 Sodium Chloride 0.9% 1000 Ml IV 08/02/18 15:44 Infused .Q1H1M STA Infusion Sodium Chloride Confirm 08/02/18 14:59 Sodium Chloride 0.9% 1000 Ml Administered 08/02/18 15:00 Dose 1,000 mls @ ud .ROUTE .STK-MED ONE Magnesium Citrate 296 ml 08/02/18 17:19 08/02/18 17:39 Citroma 296 Ml PO 08/02/18 17:20 296 ml STAT ONE Administration Magnesium Citrate Confirm 08/02/18 17:38 Citroma 296 Ml Administered 08/02/18 17:39 Dose 296 ml .ROUTE .STK-MED ONE Lab/Rad Data: Laboratory Result Diagrams 08/02/18 15:10 08/02/18 15:10 Laboratory Results 08/02/18 08/02/18 08/02/18 Range/Units 17:00 15:10 15:10 WBC 10.8 H (4.0-10.5) K/mm3 RBC 4.16 (4.1-5.4) M/mm3 Hgb 14.0 (12.0-16.0) gm/dl Hct 41.2 (35-47) % MCV 99.0 (78-100) fl MCH 33.7 H (26-32) pg MCHC 34.0 (32-36) g/dl RDW 12.7 (11.5-14.0) % Plt Count 178 (150-450) K/mm3 MPV 13.2 H (6-9.5) fl Gran % 78.7 H (36.0-66.0) % Eos # (Auto) 0.05 (0-0.5) Absolute Lymphs (auto) 1.39 (1.0-4.6) Absolute Monos (auto) 0.83 (0.0-1.3) Lymphocytes % 12.9 L (24.0-44.0) % Monocytes % 7.7 (0.0-12.0) % Eosinophils % 0.5 (0.00-5.0) % Basophils % 0.2 (0.0-0.4) % Absolute Granulocytes 8.46 H (1.4-6.9) Basophils # 0.02 (0-0.4) Sodium 140 (137-145) mmol/L Potassium 3.7 (3.5-5.1) mmol/L Chloride 103 (98-107) mmol/L Carbon Dioxide 30 (22-30) mmol/L Anion Gap 11.1 (5-15) MEQ/L BUN 21 H (7-17) mg/dL Creatinine 1.19 H (0.52-1.04) mg/dL Estimated GFR 47.5 ML/MIN Glucose 108 H (74-106) mg/dL Lactic Acid (0.4-2.0) Calcium 9.1 (8.4-10.2) mg/dL Total Bilirubin 0.40 (0.2-1.3) mg/dL AST 17 (14-36) U/L ALT 15 (0-35) U/L Alkaline Phosphatase 56 (38-126) U/L Serum Total Protein 6.8 (6.3-8.2) g/dL Albumin 3.9 (3.5-5.0) g/dL Amylase 64 (30-110) U/L Lipase 42 (23-300) U/L Urine Color YELLOW (YELLOW) Urine Appearance SLIGHTLY CLOUDY (CLEAR) Urine pH 6.0 (5-6) Ur Specific [place] 1.004 (1.005-1.025) Urine Protein NEGATIVE (Negative) Urine Ketones NEGATIVE (NEGATIVE) Urine Blood SMALL (0-5) Dionisio/ul Urine Nitrite POSITIVE (NEGATIVE) Urine Bilirubin NEGATIVE (NEGATIVE) Urine Urobilinogen NEGATIVE (0-1) mg/dL Ur Leukocyte Esterase MODERATE (NEGATIVE) Urine WBC (Auto) 51-100 (0-5) /HPF Urine RBC (Auto) 6-10 (0-2) /HPF U Epithel Cells (Auto) RARE (FEW) /HPF Urine Bacteria (Auto) MODERATE (NEGATIVE) /HPF Urine Mucus (Auto) SLIGHT (NEGATIVE) /HPF Urine Culture Reflexed YES (NO) Urine Glucose NEGATIVE (NEGATIVE) mg/dL 08/02/18 Range/Units 14:50 WBC (4.0-10.5) K/mm3 RBC (4.1-5.4) M/mm3 Hgb (12.0-16.0) gm/dl Hct (35-47) % MCV (78-100) fl MCH (26-32) pg MCHC (32-36) g/dl RDW (11.5-14.0) % Plt Count (150-450) K/mm3 MPV (6-9.5) fl Gran % (36.0-66.0) % Eos # (Auto) (0-0.5) Absolute Lymphs (auto) (1.0-4.6) Absolute Monos (auto) (0.0-1.3) Lymphocytes % (24.0-44.0) % Monocytes % (0.0-12.0) % Eosinophils % (0.00-5.0) % Basophils % (0.0-0.4) % Absolute Granulocytes (1.4-6.9) Basophils # (0-0.4) Sodium (137-145) mmol/L Potassium (3.5-5.1) mmol/L Chloride (98-107) mmol/L Carbon Dioxide (22-30) mmol/L Anion Gap (5-15) MEQ/L BUN (7-17) mg/dL Creatinine (0.52-1.04) mg/dL Estimated GFR ML/MIN Glucose (74-106) mg/dL Lactic Acid 0.7 (0.4-2.0) Calcium (8.4-10.2) mg/dL Total Bilirubin (0.2-1.3) mg/dL AST (14-36) U/L ALT (0-35) U/L Alkaline Phosphatase (38-126) U/L Serum Total Protein (6.3-8.2) g/dL Albumin (3.5-5.0) g/dL Amylase (30-110) U/L Lipase (23-300) U/L Urine Color (YELLOW) Urine Appearance (CLEAR) Urine pH (5-6) Ur Specific [place] (1.005-1.025) Urine Protein (Negative) Urine Ketones (NEGATIVE) Urine Blood (0-5) Dionisio/ul Urine Nitrite (NEGATIVE) Urine Bilirubin (NEGATIVE) Urine Urobilinogen (0-1) mg/dL Ur Leukocyte Esterase (NEGATIVE) Urine WBC (Auto) (0-5) /HPF Urine RBC (Auto) (0-2) /HPF U Epithel Cells (Auto) (FEW) /HPF Urine Bacteria (Auto) (NEGATIVE) /HPF Urine Mucus (Auto) (NEGATIVE) /HPF Urine Culture Reflexed (NO) Urine Glucose (NEGATIVE) mg/dL - Progress Progress: unchanged, re-examined Progress Note: 08/02/18 17:49 pt states she has had keflex in the past without any issues Counseled pt/family regarding: lab results, diagnosis, need for follow-up, rad results - Departure Time of Disposition: 17:48 Departure Disposition: Home Clinical Impression: UTI (urinary tract infection), Ileus Condition: Stable Critical Care Time: No Referrals: CORNELIO BELLO [Primary Care Provider] - Additional Instructions: drink plenty of fluids. follow up with primary doctor for persistent symptoms Prescriptions: Ciprofloxacin [Cipro 500 MG] 500 mg PO BID #14 tablet
[2018-08-02] MEDS ORDERED: Sodium Chloride 0.9% 1000 ML 1,000 ML IV STA (14:44)
[2018-08-02] MEDS ORDERED: Sodium Chloride 0.9% 1000 ML 1,000 ML ONE (14:59)
[2018-08-02 15:20] LABS: BASOPHIL % 0.2 % (0.0-0.4); Basophil (Absolute #) 0.02 (0-0.4); Eosinophil % 0.5 % (0.00-5.0); Eosinophil (Absolute #) 0.05 (0-0.5); Granulocyte Absolute (ANC) 8.46 (1.4-6.9); Granulocytes % 78.7 % (36.0-66.0); Hematocrit 41.2 % (35-47); Lymphocyte (Absolute #) 1.39 (1.0-4.6); Lymphocytes % 12.9 % (24.0-44.0); Mean Corpuscular Hemoglobin 33.7 pg (26-32); Mean Platelet Volume 13.2 fl (6-9.5); Monocyte (Absolute #) 0.83 (0.0-1.3); Monocytes % 7.7 % (0.0-12.0); Platelet Count 178 K/mm3 (150-450); Red Blood Count 4.16 M/mm3 (4.1-5.4); Red Cell Distribution Width 12.7 % (11.5-14.0); White Blood Count 10.8 K/mm3 (4.0-10.5)
[2018-08-02 15:44] LABS: ALBUMIN 3.9 g/dL (3.5-5.0); ANION GAP 11.1 MEQ/L (5-15); BILIRUBIN,TOTAL 0.4 mg/dL (0.2-1.3); Calcium 9.1 mg/dL (8.4-10.2); Creatinine 1 1.19 mg/dL (0.52-1.04); Potassium 3.7 mmol/L (3.5-5.1); Total Protein 6.8 g/dL (6.3-8.2)
--- NOTE | 2018-08-02 16:38 | XRAY ---
Indication: Abdominal pain and distention. Multiple contiguous axial images obtained through the abdomen and pelvis without contrast as ordered. Comparison: July 11, 2017. Lung bases again demonstrates minimal bibasilar dependent atelectasis and tiny right lower lobe calcified granuloma. No infiltrate or effusion. Heart is not enlarged. Noncontrasted stomach and bowel loops appear nonobstructed. There remains mild diffuse scattered colonic fecal debris. Previous Roy catheter has been removed with small air within the urinary bladder lumen either iatrogenic versus gas-forming bacterial infection. Stable small left renal angiomyolipoma and previous hysterectomy. Remaining liver, gallbladder, pancreas, spleen, adrenal glands, kidneys, and ureters appear unremarkable for noncontrast exam. Stable mild aortoiliac calcifications without AAA. Osseous structures intact again with mild degenerative changes throughout the spine. Stable small fatty supraumbilical and tiny fatty umbilical hernias. Impression: 1. Urinary bladder intraluminal air either iatrogenic versus gas-forming bacterial infection. 2. Again fecal stasis without obstruction. 3. Stable left renal angiomyolipoma, fatty supraumbilical ventral hernia, and fatty umbilical hernia. 4. Remaining CT abdomen/pelvis without contrast exam is negative. CTDI 17.19
[2018-08-02] MEDS ORDERED: CITROMA 296 ML PO ONE (17:19)
[2018-08-02 17:32] LABS: Appearance SLIGHTLY CLOUDY (CLEAR); Bilirubin NEGATIVE (NEGATIVE); Blood SMALL Ery/ul (0-5); Glucose NEGATIVE (NEGATIVE); Ketones NEGATIVE (NEGATIVE); Leukocyte Esterase MODERATE (NEGATIVE); Nitrite POSITIVE (NEGATIVE); Protein,Urine Dip NEGATIVE (Negative); Specific Gravity 1.004 (1.005-1.025); Urobilinogen NEGATIVE mg/dL (0-1)
[2018-08-02] MEDS ORDERED: CITROMA 296 ML ONE (17:38)
[2018-08-02] MEDS ORDERED: ROCEPHIN 1 Gm-D5w 50 ml Bag** 1 G/50 ML IVPB IV STA (17:48)
[2018-08-02] MEDS ORDERED: ROCEPHIN 1 Gm-D5w 50 ml Bag** 1 G/50 ML IVPB IV ONE (17:53)
== END 2018-08-02 18:47 | disposition home or self-care (01) ==
LOC: ED 14:00
DX: N39.0 Urinary tract infection, site not specified (principal); K56.7 Ileus, unspecified; Z79.899 Other long term (current) drug therapy; E11.9 Type 2 diabetes mellitus without complications; Z79.84 Long term (current) use of oral hypoglycemic drugs
CPT/HCPCS: 36000; 36415; 74176; 80053; 81001; 82150; 83605; 83690; 85025; 87077; 87086; 87186; 96360; 96365; 99284; J0696; A9270-GY

== ENCOUNTER 2018-10-18 21:54 | Emergency (ER) | payer MEDICARE ==
[2018-10-19] MEDS ORDERED: Sodium Chloride 0.9% 1000 ML 1,000 ML IV STA (00:22)
[2018-10-19] MEDS ORDERED: Zofran 4 MG/2 ML VIAL IV ONE (00:22)
--- NOTE | 2018-10-19 00:28 | ERPHSYRPT ---
- History of Present Illness Time Seen by Provider: 10/19/18 00:25 Source: patient, family Exam Limitations: no limitations, clinical condition Patient Subjective Stated Complaint: Vomitting Triage Nursing Assessment: Patient ambulated back to ED and transferred self to bed. Patient A+OX 3. Patient complains of vomitting for 2 days. Patient states she has been vomitting every few hours for the past 2 days. Patient's lungs clear a/p viral. No fevers noted. Patient's abdomen soft and round and bs present X 4. Physician History: 73 y/o white female presents with 3 day h/o headache, vomiting and mild abd pain. no head injury. pt has not vomited today and does not have much abd pain today. but concerned about headache. no fevers. no diarrhea. no cough. no earache. pt started an antibiotic 10/18/18 cipro. Timing/Duration: day(s) (3) Severity: mild Associated Symptoms: nausea, vomiting, abdominal pain, headaches Allergies/Adverse Reactions: amoxicillin Adverse Reaction (Verified 10/18/18 23:53) Home Medications: Alprazolam 0.5 mg [xanAX 0.5 MG] 0.5 mg PO HS 03/30/12 [History] Duloxetine HCl 30 mg [Cymbalta 30 MG Capsule] 30 mg PO DAILY 03/30/12 [ History] Estradiol 1 mg PO DAILY 03/30/12 [History] Hydrocodone/APAP 10/325 mg [[place] 10/325 MG Tablet] 1 tab PO Q4H PRN PRN 03/30/12 [History] Lisinopril 2.5 mg PO DAILY 03/30/12 [History] Melatonin/Pyridoxine HCl (B6) [Melatonin 5 mg Tablet] 10 mg PO HS 03/30/12 [ History] Metformin HCl 500 mg [Glucophage 500 MG] 500 mg PO BID 03/30/12 [History] [place]-3 Fatty Acids/Fish Oil [Fish Oil 1,000 mg Softgel] 2 cap PO HS 03/30/12 [ History] Verapamil HCl [Verapamil ER] 240 mg PO HS 03/30/12 [History] Levothyroxine Sodium 25 mcg PO DAILY 03/31/12 [History] Polyethylene Glycol 3350 [Miralax] 1 capful PO DAILY 03/31/12 [History] Gabapentin [Neurontin] 300 mg PO TID 06/11/15 [History] Hx Tetanus, Diphtheria Vaccination/Date Given: No Hx Influenza Vaccination/Date Given: Yes Hx Pneumococcal Vaccination/Date Given: No Immunizations Up to Date: Yes - Review of Systems Constitutional: No Symptoms Eyes: No Symptoms Ears, Nose, & Throat: No Symptoms Respiratory: No Symptoms Cardiac: No Symptoms Abdominal/Gastrointestinal: Nausea, Vomiting Genitourinary Symptoms: No Symptoms, No Dysuria, No Hematuria Musculoskeletal: No Symptoms Skin: No Symptoms Neurological: Headache Psychological: No Symptoms Endocrine: No Symptoms Hematologic/Lymphatic: No Symptoms Immunological/Allergic: No Symptoms All Other Systems: Reviewed and Negative - Past Medical History Pertinent Past Medical History: Yes Neurological History: No Pertinent History ENT History: Other Cardiac History: Angina, Hypertension Respiratory History: No Pertinent History Endocrine Medical History: Diabetes Type II, Hypothyroidism Musculoskeletal History: Arthritis, Rheumatoid Arthritis, Fibromyalgia GI Medical History: No Pertinent History History: No Pertinent History Psycho-Social History: No Pertinent History Female Reproductive Disorders: Other Other Medical History: 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 - Past Surgical History Past Surgical History: Yes Neuro Surgical History: No Pertinent History Cardiac: No Pertinent History Respiratory: No Pertinent History Gastrointestinal: No Pertinent History Genitourinary: No Pertinent History Musculoskeletal: Orthopedic Surgery Female Surgical History: Hysterectomy Other Surgical History: Lower eyelid syurgery to remove cancer. - Social History Smoking Status: Never smoker Exposure to second hand smoke: No Drug Use: none Patient Lives Alone: No - Female History Hx Now: No - Nursing Vital Signs Nursing Vital Signs: Initial Vital Signs Temperature 98.9 F 10/18/18 23:53 Pulse Rate 80 10/18/18 23:53 Respiratory Rate 18 10/18/18 23:53 Blood Pressure 128/66 10/18/18 23:53 O2 Sat by Pulse Oximetry 96 10/18/18 23:53 Pain Scale Pain Intensity 0 - Physical Exam General Appearance: no apparent distress, alert, anxiety Eye Exam: PERRL/EOMI Ears, Nose, Throat Exam: normal ENT inspection, moist mucous membranes Neck Exam: normal inspection, non-tender, supple, full range of motion Respiratory Exam: normal breath sounds, lungs clear, airway intact, No chest tenderness, No respiratory distress, No accessory muscle use, No rhonchi, No wheezing, No stridor Cardiovascular Exam: regular rate/rhythm, normal heart sounds, normal peripheral pulses Gastrointestinal/Abdomen Exam: soft, normal bowel sounds, No tenderness, No guarding, No rebound Pelvic Exam: not done Rectal Exam: not done Back Exam: normal inspection, normal range of motion, No CVA tenderness, No vertebral tenderness Extremity Exam: normal inspection, normal range of motion, No pelvis stable Neurologic Exam: alert, oriented x 3, 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, 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 Skin Exam: normal color, warm, dry Lymphatic Exam: No adenopathy SpO2 Interpretation: normal SpO2: 96 Oxygen Delivery: Room Air - Course Nursing assessment & vital signs reviewed: Yes Ordered Tests: Active Orders 24 hr Category Date Time Status IV Insertion STAT Care 10/19/18 00:22 Active HEAD WITHOUT CONTRAST [CT] Stat Exams 10/19/18 00:50 Taken AMYLASE Stat Lab 10/19/18 01:10 Completed CBC W DIFF Stat Lab 10/19/18 01:10 Completed CMP Stat Lab 10/19/18 01:10 Completed LIPASE Stat Lab 10/19/18 01:10 Completed Lactic Acid Stat Lab 10/19/18 01:10 Results MAGNESIUM Stat Lab 10/19/18 01:10 Completed Chambers Screen Stat Lab 10/19/18 01:10 Completed UA W/RFX UR CULTURE Stat Lab 10/19/18 01:45 Received Medication Summary Discontinued Medications Generic Name Dose Route Start Last Admin Trade Name Freq PRN Reason Stop Dose Admin Sodium Chloride 1,000 mls @ 999 mls/hr 10/19/18 00:22 10/19/18 01:05 Sodium Chloride 0.9% 1000 Ml IV 10/19/18 01:22 999 mls/hr .Q1H1M STA Administration Sodium Chloride Confirm 10/19/18 00:59 Sodium Chloride 0.9% 1000 Ml Administered 10/19/18 01:00 Dose 1,000 mls @ ud .ROUTE .STK-MED ONE Ondansetron HCl 4 mg 10/19/18 00:22 10/19/18 01:05 Zofran 4 Mg/2 Ml Vial IV 10/19/18 00:23 4 mg STAT ONE Administration Ondansetron HCl Confirm 10/19/18 00:59 Zofran 4 Mg/2 Ml Vial Administered 10/19/18 01:00 Dose 4 mg .ROUTE .STK-MED ONE Ondansetron HCl Confirm 10/19/18 01:04 Zofran 4 Mg/2 Ml Vial Administered 10/19/18 01:05 Dose 4 mg .ROUTE .STK-MED ONE Lab/Rad Data: Laboratory Result Diagrams 10/19/18 01:10 10/19/18 01:10 Laboratory Results 10/19/18 10/19/18 10/19/18 Range/Units 01:20 01:10 01:10 WBC (4.0-10.5) K/mm3 RBC (4.1-5.4) M/mm3 Hgb (12.0-16.0) gm/dl Hct (35-47) % MCV (78-100) fl MCH (26-32) pg MCHC (32-36) g/dl RDW (11.5-14.0) % Plt Count (150-450) K/mm3 MPV (6-9.5) fl Gran % (36.0-66.0) % Eos # (Auto) (0-0.5) Absolute Lymphs (auto) (1.0-4.6) Absolute Monos (auto) (0.0-1.3) Lymphocytes % (24.0-44.0) % Monocytes % (0.0-12.0) % Eosinophils % (0.00-5.0) % Basophils % (0.0-0.4) % Absolute Granulocytes (1.4-6.9) Basophils # (0-0.4) Sodium (137-145) mmol/L Potassium (3.5-5.1) mmol/L Chloride (98-107) mmol/L Carbon Dioxide (22-30) mmol/L Anion Gap (5-15) MEQ/L BUN (7-17) mg/dL Creatinine (0.52-1.04) mg/dL Estimated GFR ML/MIN Glucose (74-106) mg/dL Lactic Acid (0.4-2.0) Calcium (8.4-10.2) mg/dL Magnesium 1.8 (1.6-2.3) mg/dL Total Bilirubin (0.2-1.3) mg/dL AST (14-36) U/L ALT (0-35) U/L Alkaline Phosphatase (38-126) U/L Serum Total Protein (6.3-8.2) g/dL Albumin (3.5-5.0) g/dL Amylase (30-110) U/L Lipase (23-300) U/L Monoscreen NEGATIVE (Negative) Influenza Type A Ag NEGATIVE (NEGATIVE) Influenza Type B Ag NEGATIVE (NEGATIVE) RSV (PCR) NEGATIVE (Negative) 10/19/18 10/19/18 10/19/18 Range/Units 01:10 01:10 01:10 WBC 11.3 H (4.0-10.5) K/mm3 RBC 3.92 L (4.1-5.4) M/mm3 Hgb 13.1 (12.0-16.0) gm/dl Hct 40.4 (35-47) % MCV 103.1 H (78-100) fl MCH 33.4 H (26-32) pg MCHC 32.4 (32-36) g/dl RDW 13.3 (11.5-14.0) % Plt Count 200 (150-450) K/mm3 MPV 12.7 H (6-9.5) fl Gran % 65.1 (36.0-66.0) % Eos # (Auto) 0.26 (0-0.5) Absolute Lymphs (auto) 2.63 (1.0-4.6) Absolute Monos (auto) 1.00 (0.0-1.3) Lymphocytes % 23.4 L (24.0-44.0) % Monocytes % 8.9 (0.0-12.0) % Eosinophils % 2.3 (0.00-5.0) % Basophils % 0.3 (0.0-0.4) % Absolute Granulocytes 7.34 H (1.4-6.9) Basophils # 0.03 (0-0.4) Sodium 143 (137-145) mmol/L Potassium 3.7 (3.5-5.1) mmol/L Chloride 105 (98-107) mmol/L Carbon Dioxide 26 (22-30) mmol/L Anion Gap 15.4 H (5-15) MEQ/L BUN 27 H (7-17) mg/dL Creatinine 2.02 H (0.52-1.04) mg/dL Estimated GFR 25.8 ML/MIN Glucose 121 H (74-106) mg/dL Lactic Acid 2.2 H (0.4-2.0) Calcium 9.0 (8.4-10.2) mg/dL Magnesium (1.6-2.3) mg/dL Total Bilirubin 0.30 (0.2-1.3) mg/dL AST 17 (14-36) U/L ALT 18 (0-35) U/L Alkaline Phosphatase 52 (38-126) U/L Serum Total Protein 6.6 (6.3-8.2) g/dL Albumin 3.9 (3.5-5.0) g/dL Amylase 100 (30-110) U/L Lipase 171 (23-300) U/L Monoscreen (Negative) Influenza Type A Ag (NEGATIVE) Influenza Type B Ag (NEGATIVE) RSV (PCR) (Negative) - Progress Progress: improved, re-examined Progress Note: 10/19/18 02:12 ct brain-no acute intracranial process Counseled pt/family regarding: lab results, diagnosis, need for follow-up, rad results - Departure Time of Disposition: 02:13 Departure Disposition: Home Clinical Impression: Head ache, Vomiting Condition: Stable Critical Care Time: No Referrals: APRIL BRAGG, JACOB [Primary Care Provider] - Additional Instructions: drink plenty of fluids. follow up with primary doctor for further management. continue your antibiotics as prescribed
[2018-10-19] MEDS ORDERED: Sodium Chloride 0.9% 1000 ML 1,000 ML ONE (00:59)
[2018-10-19] MEDS ORDERED: Zofran 4 MG/2 ML VIAL ONE ×2 (00:59→01:04)
[2018-10-19 01:13] LABS: Lactic Acid 2.2 (0.4-2.0)
[2018-10-19 01:22] LABS: BASOPHIL % 0.3 % (0.0-0.4); Basophil (Absolute #) 0.03 (0-0.4); Eosinophil % 2.3 % (0.00-5.0); Eosinophil (Absolute #) 0.26 (0-0.5); Granulocyte Absolute (ANC) 7.34 (1.4-6.9); Granulocytes % 65.1 % (36.0-66.0); Hematocrit 40.4 % (35-47); Hemoglobin 13.1 gm/dl (12.0-16.0); Lymphocyte (Absolute #) 2.63 (1.0-4.6); Lymphocytes % 23.4 % (24.0-44.0); Mean Cell Volume 103.1 fl (78-100); Mean Corpuscular Hemoglobin 33.4 pg (26-32); Mean Corpuscular Hgb Concent. 32.4 g/dl (32-36); Mean Platelet Volume 12.7 fl (6-9.5); Monocytes % 8.9 % (0.0-12.0); Platelet Count 200 K/mm3 (150-450); Red Blood Count 3.92 M/mm3 (4.1-5.4); Red Cell Distribution Width 13.3 % (11.5-14.0); White Blood Count 11.3 K/mm3 (4.0-10.5)
[2018-10-19 01:52] LABS: ALBUMIN 3.9 g/dL (3.5-5.0); ANION GAP 15.4 MEQ/L (5-15); BILIRUBIN,TOTAL 0.3 mg/dL (0.2-1.3); Creatinine 1 2.02 mg/dL (0.52-1.04); Potassium 3.7 mmol/L (3.5-5.1); Total Protein 6.6 g/dL (6.3-8.2)
[2018-10-19 01:53] LABS: INFLUENZA A NEGATIVE (NEGATIVE); INFLUENZA B NEGATIVE (NEGATIVE); RESPIRATORY SYNCTIAL VIRUS NEGATIVE (Negative)
[2018-10-19 02:15] LABS: Appearance CLOUDY (CLEAR); Bilirubin NEGATIVE (NEGATIVE); Blood SMALL Ery/ul (0-5); Glucose NEGATIVE (NEGATIVE); Ketones TRACE (NEGATIVE); Leukocyte Esterase LARGE (NEGATIVE); Nitrite NEGATIVE (NEGATIVE); Protein,Urine Dip NEGATIVE (Negative); Specific Gravity 1.015 (1.005-1.025); Urobilinogen NEGATIVE mg/dL (0-1)
[2018-10-19] MEDS ORDERED: Diflucan 100 MG PO ONE (02:22)
[2018-10-19 03:09] VITALS: BP 145/70; PULSE 75; O2SAT 96
--- NOTE | 2018-10-19 09:14 | XRAY ---
Indication: Headache and vomiting. Multiple contiguous axial images obtained through the head without contrast. Comparison: None Age-appropriate global atrophy and minimal periventricular degenerative micro-ischemia. Tiny remote appearing right caudate lacunar infarct. No acute intracranial hemorrhage, abnormal extra-axial fluid collection, or mass effect. Fourth ventricle is midline without hydrocephalus. Bony calvarium intact. Minimal mucosal thickening of the left ethmoid sinus. Remaining visualized paranasal sinuses and mastoid air cells are clear. 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 Incidental paranasal sinus disease. Comment: Preliminary interpretation was made by [facility]. No critical discrepancy. CT DI 64.15
== END 2018-10-19 03:04 | disposition home or self-care (01) ==
LOC: ED 21:54
DX: R51 Headache (principal); R11.2 Nausea with vomiting, unspecified; R10.9 Unspecified abdominal pain; Z79.899 Other long term (current) drug therapy; E11.9 Type 2 diabetes mellitus without complications; Z79.84 Long term (current) use of oral hypoglycemic drugs; I10 Essential (primary) hypertension
CPT/HCPCS: 36000; 36415; 70450; 80053; 81001; 82150; 83605; 83690; 83735; 84439; 84443; 85025; 86308; 87086; 87631; 96360; 96374; 99284; J2405; A9270-GY

== ENCOUNTER 2019-05-27 11:59 | Day surgery (SDC) | payer MEDICARE ==
--- NOTE | 2019-05-27 10:11 | HP ---
DATE OF SURGERY: 05/27/2019 HISTORY OF PRESENT ILLNESS: The patient is a 74 year-old with ulcerated area left side of face squamous cell, is in need of wider excision. PAST MEDICAL HISTORY: Diabetes. Hyperlipidemia. Renal insufficiency. Coronary artery disease. Hypertension. History of transient ischemic attack in the past. PAST SURGICAL HISTORY: Thyroidectomy in the past. Orthopedic surgery. MEDICATIONS: Atorvastatin, Belbuca, Coreg, fluconazole, doxycycline, Flomax, hydrochlorothiazide, levothyroxine, Metformin, [place], Plavix, Protonix, Estradiol, low-dose aspirin, Verapamil, Xanax. ALLERGIES: AMOXICILLIN. FAMILY HISTORY: Heart disease, hypertension. SOCIAL HISTORY: No smoking or alcohol abuse. REVIEW OF SYSTEMS: Fourteen systems reviewed per admission assessment. No chest pain or palpitations other systems negative or noncontributory as above and per preadmission questionnaire. PHYSICAL EXAMINATION: GENERAL: No acute distress. HEENT: Sclerae nonicteric. NECK: No JVD. CHEST: Equal excursion, nonlabored breathing. CVS: Regular rate and rhythm. ABDOMEN: Soft. EXTREMITIES: No significant edema. NEURO: Alert, oriented, moving extremities symmetrically. No gross motor deficits noted. 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 Biopsy site needs wide excision. Risks and benefits explained in detail including but not limited to bleeding or infection, risk of involved margins possibly requiring wider excision, general risk of anesthesia or deep venous thrombosis, pulmonary embolism, pneumonia. She understands she will have a scar in the area. General risk of motor or nerve irritation, scar formation, risk of weakness in chewing, droop lip or eyelid dysfunction but not limited to. Consent was obtained. Will proceed with excisional biopsy of left face biopsy site as an outpatient.
[~2019-05-27 11:59] MED LIST: DIPRIVAN 200 MG/20 ML IV ONE; Lactated Ringers 1,000 ML IV ONE; Lactated Ringers 1,000 ML IV SCH; Quelicin Fliptop 200 MG/10 ML ONE; SUBLIMAZE 100 MCG/2 ML ONE; Sensorcaine 0.25% 10 ML ONE; Zemuron 100 MG/10 ML ONE
[2019-05-27] MEDS ORDERED: Lactated Ringers 0 ML IV ONE (12:56)
[2019-05-27] MEDS ORDERED: TORAdol 30 mg Injection ONE (15:15)
[2019-05-27] MEDS ORDERED: Decadron 4 MG INJ ONE (15:15)
[2019-05-27] MEDS ORDERED: BRIDION 200MG/2ML IV ONE (15:15)
[2019-05-27] MEDS ORDERED: Zofran 4 MG/2 ML VIAL ONE (15:15)
[2019-05-27] MEDS ORDERED: SUBLIMAZE 100 MCG/2 ML ONE (15:41)
--- NOTE | 2019-05-27 15:47 | OP ---
SURGERY DATE/TIME: 05/27/2019 1455 PREOPERATIVE DIAGNOSIS: History of squamous cell carcinoma in situ with involved margins, need for wide excision left face. POSTOPERATIVE DIAGNOSIS: History of squamous cell carcinoma in situ with involved margins, need for wide excision left face. PROCEDURE: Wide excision left face squamous cell carcinoma in situ biopsy site (approximately 1.5 cm with margins) with intermediate closure with local advancement flaps. SURGEON: Dr. Adam Rivero. ANESTHESIA: General. ESTIMATED BLOOD LOSS: Minimal. INDICATIONS: As noted above. Risks and benefits explained in detail and not limited to and consent obtained. DESCRIPTION OF PROCEDURE AND FINDINGS: The patient is taken to the operating room. General anesthesia induced. The face had been prepped and marked in the holding area. She was prepped and draped in usual sterile fashion. After official time out and no disagreement with planned procedure, marking out to normal appearing skin on either side of the slightly roughened almost ulcerated site, marking out to normal appearing skin on either side of this resulting in a specimen about 1.5 cm and this was excised in spindle-shaped fashion about 3.6 cm long. Dissecting down to normal appearing subcutaneous tissue underneath the specimen and passed off for pathology. Pin point cautery made with electrocautery set on a low setting of 12. The wound was then closed in intermediate fashion with local advancement flaps and brought back towards the midline with deep and superficial subcu interrupted 4-0 Vicryl. Skin closed with running 5-0 Prolene in subcuticular fashion. Steri-Strips and sterile dressing applied. Patient tolerated the procedure well. There were no immediate complications. Findings discussed with the family out in the waiting area. I will see her back in the office.
[2019-05-27 17:02] VITALS: O2SAT 99
[2019-05-27 17:16] VITALS: BP 168/86; PULSE 95
== END 2019-05-27 17:20 | disposition home or self-care (01) ==
LOC: SDC 11:59
PROVIDERS: ATTEND Surgery
DX: D04.39 Carcinoma in situ of skin of other parts of face (principal); E11.9 Type 2 diabetes mellitus without complications; E78.5 Hyperlipidemia, unspecified; N28.9 Disorder of kidney and ureter, unspecified; I10 Essential (primary) hypertension; Z79.899 Other long term (current) drug therapy
CPT/HCPCS: 82962; 88305; 99100; J0330; J1100; J1885; J2405; J2704; J3010

== ENCOUNTER 2019-09-24 05:15 | Emergency (ER) | payer MEDICARE ==
[2019-09-24] MEDS ORDERED: Sodium Chloride 0.9% 1000 ML 1,000 ML IV STA (05:34)
--- NOTE | 2019-09-24 05:40 | ERPHSYRPT ---
- History of Present Illness Source: patient, family Exam Limitations: no limitations Time of Onset/Last Time Seen Normal: 09/23/2019 @ 06:00 Timing/Duration: hour(s) (23) Severity: moderate Character of Deficits: other (vertigo) Baseline/Normal Cognition: alert oriented x 3 Current Cognition: alert oriented x 3 Baseline Gait: walks w/o assistance Associated Symptoms: confusion, fatigue, headache, No fever, No chills, No loss of consciousness, No nausea, No vomiting, No weakness, No insomnia, No muscle spasms, No numbness/tingling in legs/feet, No paresthesia, No ringing in ears, No seizures, No slurred speech, No trouble walking, No vision changes, No chest pain Hx Tetanus, Diphtheria Vaccination/Date Given: No Hx Influenza Vaccination/Date Given: Yes Hx Pneumococcal Vaccination/Date Given: No <ANKUSH BENEDICT - Last Filed: 09/24/19 06:43> <SARANYA HARDY - Last Filed: 09/24/19 08:28> - History of Present Illness Time Seen by Provider: 09/24/19 05:30 Physician History: Patient has had vertigo when she moves her head to the right, confusion and shortness of breath over the past day. Patient has had two episodes of head injuries over the past three weeks. Patient has not had any focal weakness, loss of sensation, slurred speech, vision loss over the past day. (ANKUSH BENEDICT) Allergies/Adverse Reactions: adhesive tape Allergy (Intermediate, Verified 09/24/19 05:52) Rash amoxicillin Adverse Reaction (Intermediate, Verified 09/24/19 05:52) Nausea and Vomiting Home Medications: Alprazolam 0.5 mg [xanAX 0.5 MG] 1 mg PO TID 03/30/12 [History] Hydrocodone/APAP 10/325 mg [[place] 10/325 MG Tablet] 7.5 mg PO Q4H PRN PRN 03/30/12 [History] Lisinopril 2.5 mg PO DAILY 03/30/12 [History] Melatonin/Pyridoxine HCl (B6) [Melatonin 5 mg Tablet] 10 mg PO HS 03/30/12 [ History] Metformin HCl 500 mg [Glucophage 500 MG] 500 mg PO BID 03/30/12 [History] Carbon-3 Fatty Acids/Fish Oil [Fish Oil 1,000 mg Softgel] 2 cap PO HS 03/30/12 [ History] Verapamil HCl [Verapamil ER] 360 mg PO HS 03/30/12 [History] Levothyroxine Sodium 25 mcg PO DAILY 03/31/12 [History] Polyethylene Glycol 3350 [Miralax] 1 capful PO DAILY 03/31/12 [History] Buprenorphine HCl [Belbuca] 75 mcg BC DAILY 05/21/19 [History] Dicyclomine HCl 20 mg [Bentyl 20 mg] 20 mg PO QID 05/21/19 [History] Ketorolac Tromethamine 0.5% [Acular OPTH LASHAUN] 5 ml OP PC PRN 05/21/19 [ History] Lansoprazole [Prevacid] 30 mg PO BID 05/21/19 [History] Multivitamin [Multivitamins] 1 each PO DAILY 05/21/19 [History] Vitamin E 1,000 unit PO DAILY 05/21/19 [History] - Review of Systems Constitutional: No Fever, No Chills Eyes: No Eye Pain, No Vision Changes Ears, Nose, & Throat: No Mouth Pain, No Painful Swallowing Respiratory: Dyspnea, No Cough Cardiac: No Chest Pain, No Edema, No Syncope Abdominal/Gastrointestinal: No Abdominal Pain, No Nausea, No Vomiting, No Diarrhea, No Hematemesis, No Hematochezia, No Melena Genitourinary Symptoms: No Dysuria, No Frequency, No Hematuria, No Flank Pain Musculoskeletal: No Back Pain, No Neck Pain Skin: No Rash Neurological: Dizziness, Headache, Vertigo, No Focal Weakness, No Parasthesia, No Sensory Changes, No Speech Changes, No Tremors Psychological: No Emotional Lability Hematologic/Lymphatic: No Easy Bleeding, No Easy Bruising All Other Systems: Reviewed and Negative <ANKUSH BENEDICT - Last Filed: 09/24/19 06:43> - Past Medical History Pertinent Past Medical History: Yes Neurological History: No Pertinent History ENT History: Other Cardiac History: Coronary Artery Disease, Hypertension Respiratory History: No Pertinent History Endocrine Medical History: Diabetes Type II, Hypothyroidism Musculoskeletal History: Arthritis, Rheumatoid Arthritis, Fibromyalgia GI Medical History: No Pertinent History History: No Pertinent History Psycho-Social History: Anxiety Female Reproductive Disorders: Other Other Medical History: 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 sinus drainage - Past Surgical History Past Surgical History: Yes Neuro Surgical History: No Pertinent History Cardiac: No Pertinent History Respiratory: No Pertinent History Gastrointestinal: Hernia Repair Genitourinary: No Pertinent History Musculoskeletal: Orthopedic Surgery Female Surgical History: Hysterectomy Other Surgical History: Lower eyelid syurgery to remove cancer. foot surgery bunion and ankle - Social History Smoking Status: Never smoker Exposure to second hand smoke: No Drug Use: none Patient Lives Alone: No <VARLAS,KAREEMELATIF DANYA - Last Filed: 09/24/19 06:43> - Ray Coma Scale Best Eye Response (Ray): (4) open spontaneously Best Verbal Response (Ray): (5) oriented Best Motor Response (Ray): (6) obeys commands Ray Total: 15 - Physical Exam General Appearance: no apparent distress, alert Eye Exam: bilateral eye: normal inspection, PERRL, EOMI Ears, Nose, Throat Exam: normal ENT inspection, TMs normal, pharynx normal, moist mucous membranes, No pharyngeal erythema Neck Exam: normal inspection, non-tender, supple, full range of motion, No Brudzinski, No lymphadenopathy Respiratory: normal breath sounds, lungs clear, airway intact, No respiratory distress, No diminished breath sounds, No accessory muscle use, No crackles/ rales, No rhonchi, No wheezing, No stridor Cardiovascular: regular rate/rhythm, normal heart sounds, normal peripheral pulses, capillary refill <2 sec, No edema Gastrointestinal: soft, No tenderness, No distention, No guarding, No rebound Back Exam: normal inspection, No CVA tenderness, No vertebral tenderness, No rash Extremity Exam: normal inspection, normal range of motion, pelvis stable, No calf tenderness, No deformities, No pedal edema Peripheral Pulses: carotid (R): 2+, carotid (L): 2+, dorsalis-pedis (R): 2+, dorsalis-pedis (L): 2+ Mental Status: alert, oriented x 3, 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 Exam: normal hearing, normal speech, PERRL, tongue midline, No abnormal eye position, No abnormal speech, No facial asymmetry, No facial droop, No facial weakness, No gaze palsy, No tongue deviation to R, No tongue deviation to L Coordination/Gait: normal finger to nose, normal gait Motor/Sensory: no motor deficit, no sensory deficit, No sensory deficit, No weak motor strength RUE, No weak motor strength LUE, No weak motor strength RLE , No weak motor strength LLE Skin Exam: normal color, warm, dry, No rash SpO2 Interpretation: normal O2 Delivery: Room Air <ANKUSH BENEDICT - Last Filed: 09/24/19 06:43> - Nursing Vital Signs Nursing Vital Signs: Initial Vital Signs Temperature 97.2 F 09/24/19 05:24 Pulse Rate 95 H 09/24/19 05:24 Respiratory Rate 18 09/24/19 05:24 Blood Pressure 182/78 09/24/19 05:24 O2 Sat by Pulse Oximetry 97 09/24/19 05:24 Pain Scale Pain Intensity 8 - Course Nursing assessment & vital signs reviewed: Yes EKG Interpreted by Me: RATE (89), Sinus Rhythm, Left [place] Deviation, NORMAL INTERVALS, NORMAL QRS, NORMAL ST-T, Other (negative previous EKG for comparison) - Radiology Exams Chest X-ray Interpretation: Interpreted by me, Reviewed by me, Negative, No Fracture, No Pneumonia, No Pneumothorax, Nml Heart Size, No Infiltrates, Nml Mediastinum - CT Exams Head CT Interpretation: Tele-radiologist Report, No Fracture, No/Intracranial Hemorrhag, Other (pper radiologist interpretation: No acute intracranial hemorrhage. Neurologic cranial mass or mass effect. The [place] matter is intact. 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 Full hypodensity adjacent to the lateral aspect of the right frontal bone consistent with an old lacunar infarct. Mild diffuse cerebellar hemispheric volume loss. In large fourth ventricle. There lateral medical normal appearance. No acute fracture. Visualized sinuses are unremarkable. No fluid levels. Visualized mastoid air cells are well aerated. Unremarkable soft tissues. As a consultation. Since the prior head CT of 10/19/2018, no significant new findings. No compresses and : No acute intracranial findings.) <ANKUSH BENEDICT - Last Filed: 09/24/19 06:43> Ordered Tests: Active Orders 24 hr Category Date Time Status Alcohol Law Enforcement Agent STAT Care 09/24/19 05:38 Active EKG-ER Only STAT Care 09/24/19 05:34 Active IV Insertion STAT Care 09/24/19 05:34 Active Orthostatic Vital Signs STAT Care 09/24/19 05:34 Active cath [Cath for Specimen-Straight] STAT Care 09/24/19 07:38 Active CHEST 1 VIEW (PORTABLE) Stat Exams 09/24/19 05:35 Taken HEAD WITHOUT CONTRAST [CT] Stat Exams 09/24/19 05:36 Taken CBC W DIFF Stat Lab 09/24/19 05:58 Completed CMP Stat Lab 09/24/19 05:58 Completed ETHYL ALCOHOL Stat Lab 09/24/19 05:58 Completed Glucose,Critical Care Urgent Lab 09/24/19 05:53 Completed Lactic Acid Stat Lab 09/24/19 05:53 Completed MAGNESIUM Stat Lab 09/24/19 05:58 Completed NT PRO BNP Stat Lab 09/24/19 06:31 Completed TROPONIN Q3H Lab 09/24/19 05:58 Completed TROPONIN Q3H Lab 09/24/19 08:45 Ordered TROPONIN Q3H Lab 09/24/19 11:45 Ordered TROPONIN Q3H Lab 09/24/19 14:45 Ordered TROPONIN Q3H Lab 09/24/19 17:45 Ordered UA W/RFX UR CULTURE Stat Lab 09/24/19 07:42 Completed Urine Triage Profile Stat Lab 09/24/19 07:42 Received Medication Summary Generic Name Dose Route Start Last Admin Trade Name Pranavq PRN Reason Stop Dose Admin Magnesium Oxide 400 mg 09/24/19 06:25 09/24/19 06:36 Mag-Ox 400 PO 10/24/19 06:24 400 mg DAILY ANGEL Administration Discontinued Medications Generic Name Dose Route Start Last Admin Trade Name Freq PRN Reason Stop Dose Admin Sodium Chloride 1,000 mls @ 999 mls/hr 09/24/19 05:34 09/24/19 07:28 Sodium Chloride 0.9% 1000 Ml IV 09/24/19 06:34 Infused .Q1H1M STA Infusion Sodium Chloride Confirm 09/24/19 05:56 Sodium Chloride 0.9% 1000 Ml Administered 09/24/19 05:57 Dose 1,000 mls @ ud .ROUTE .STK-MED ONE Lab/Rad Data: Laboratory Result Diagrams 09/24/19 05:58 09/24/19 05:58 Laboratory Results 09/24/19 09/24/19 09/24/19 Range/Units 07:42 06:31 05:58 WBC (4.0-10.5) K/mm3 RBC (4.1-5.4) M/mm3 Hgb (12.0-16.0) gm/dl Hct (35-47) % MCV (78-100) fl MCH (26-32) pg MCHC (32-36) g/dl RDW (11.5-14.0) % Plt Count (150-450) K/mm3 MPV (6-9.5) fl Gran % (36.0-66.0) % Eos # (Auto) (0-0.5) Absolute Lymphs (auto) (1.0-4.6) Absolute Monos (auto) (0.0-1.3) Lymphocytes % (24.0-44.0) % Monocytes % (0.0-12.0) % Eosinophils % (0.00-5.0) % Basophils % (0.0-0.4) % Absolute Granulocytes (1.4-6.9) Basophils # (0-0.4) Glucose (70-110) Sodium (137-145) mmol/L Potassium (3.5-5.1) mmol/L Chloride (98-107) mmol/L Carbon Dioxide (22-30) mmol/L Anion Gap (5-15) MEQ/L BUN (7-17) mg/dL Creatinine (0.52-1.04) mg/dL Estimated GFR ML/MIN Lactic Acid (0.4-2.0) Calcium (8.4-10.2) mg/dL Magnesium (1.6-2.3) mg/dL Total Bilirubin (0.2-1.3) mg/dL AST (14-36) U/L ALT (0-35) U/L Alkaline Phosphatase (38-126) U/L Troponin I < 0.012 (0.000-0.034) ng/mL NT-Pro-B Natriuret Pep 210 (0-900) pg/mL Serum Total Protein (6.3-8.2) g/dL Albumin (3.5-5.0) g/dL Urine Color STRAW (YELLOW) Urine Appearance CLEAR (CLEAR) Urine pH 7.0 (5-6) Ur Specific [place] 1.009 (1.005-1.025) Urine Protein NEGATIVE (Negative) Urine Ketones NEGATIVE (NEGATIVE) Urine Blood SMALL (0-5) Dionisio/ul Urine Nitrite NEGATIVE (NEGATIVE) Urine Bilirubin NEGATIVE (NEGATIVE) Urine Urobilinogen NEGATIVE (0-1) mg/dL Ur Leukocyte Esterase NEGATIVE (NEGATIVE) Urine WBC (Auto) 0-2 (0-5) /HPF Urine RBC (Auto) 11-15 (0-2) /HPF U Epithel Cells (Auto) NONE (FEW) /HPF Urine Bacteria (Auto) NONE (NEGATIVE) /HPF Urine Culture Reflexed NO (NO) Urine Glucose NEGATIVE (NEGATIVE) mg/dL Ethyl Alcohol (0-10) mg/dL 09/24/19 09/24/19 09/24/19 Range/Units 05:58 05:58 05:53 WBC 7.0 (4.0-10.5) K/mm3 RBC 3.87 L (4.1-5.4) M/mm3 Hgb 12.6 (12.0-16.0) gm/dl Hct 38.0 (35-47) % MCV 98.2 (78-100) fl MCH 32.6 H (26-32) pg MCHC 33.2 (32-36) g/dl RDW 12.9 (11.5-14.0) % Plt Count 186 (150-450) K/mm3 MPV 11.4 H (6-9.5) fl Gran % 52.7 (36.0-66.0) % Eos # (Auto) 0.17 (0-0.5) Absolute Lymphs (auto) 2.38 (1.0-4.6) Absolute Monos (auto) 0.70 (0.0-1.3) Lymphocytes % 34.2 (24.0-44.0) % Monocytes % 10.1 (0.0-12.0) % Eosinophils % 2.4 (0.00-5.0) % Basophils % 0.6 (0.0-0.4) % Absolute Granulocytes 3.66 (1.4-6.9) Basophils # 0.04 (0-0.4) Glucose 118 H 116 H (70-110) Sodium 134 L (137-145) mmol/L Potassium 3.9 (3.5-5.1) mmol/L Chloride 98 (98-107) mmol/L Carbon Dioxide 28 (22-30) mmol/L Anion Gap 12.0 (5-15) MEQ/L BUN 22 H (7-17) mg/dL Creatinine 1.04 (0.52-1.04) mg/dL Estimated GFR 55.4 ML/MIN Lactic Acid (0.4-2.0) Calcium 9.5 (8.4-10.2) mg/dL Magnesium 1.5 L (1.6-2.3) mg/dL Total Bilirubin 0.40 (0.2-1.3) mg/dL AST 21 (14-36) U/L ALT 16 (0-35) U/L Alkaline Phosphatase 49 (38-126) U/L Troponin I (0.000-0.034) ng/mL NT-Pro-B Natriuret Pep (0-900) pg/mL Serum Total Protein 6.8 (6.3-8.2) g/dL Albumin 3.8 (3.5-5.0) g/dL Urine Color (YELLOW) Urine Appearance (CLEAR) Urine pH (5-6) Ur Specific [place] (1.005-1.025) Urine Protein (Negative) Urine Ketones (NEGATIVE) Urine Blood (0-5) Dionisio/ul Urine Nitrite (NEGATIVE) Urine Bilirubin (NEGATIVE) Urine Urobilinogen (0-1) mg/dL Ur Leukocyte Esterase (NEGATIVE) Urine WBC (Auto) (0-5) /HPF Urine RBC (Auto) (0-2) /HPF U Epithel Cells (Auto) (FEW) /HPF Urine Bacteria (Auto) (NEGATIVE) /HPF Urine Culture Reflexed (NO) Urine Glucose (NEGATIVE) mg/dL Ethyl Alcohol < 10 (0-10) mg/dL 09/24/19 Range/Units 05:53 WBC (4.0-10.5) K/mm3 RBC (4.1-5.4) M/mm3 Hgb (12.0-16.0) gm/dl Hct (35-47) % MCV (78-100) fl MCH (26-32) pg MCHC (32-36) g/dl RDW (11.5-14.0) % Plt Count (150-450) K/mm3 MPV (6-9.5) fl Gran % (36.0-66.0) % Eos # (Auto) (0-0.5) Absolute Lymphs (auto) (1.0-4.6) Absolute Monos (auto) (0.0-1.3) Lymphocytes % (24.0-44.0) % Monocytes % (0.0-12.0) % Eosinophils % (0.00-5.0) % Basophils % (0.0-0.4) % Absolute Granulocytes (1.4-6.9) Basophils # (0-0.4) Glucose (70-110) Sodium (137-145) mmol/L Potassium (3.5-5.1) mmol/L Chloride (98-107) mmol/L Carbon Dioxide (22-30) mmol/L Anion Gap (5-15) MEQ/L BUN (7-17) mg/dL Creatinine (0.52-1.04) mg/dL Estimated GFR ML/MIN Lactic Acid 1.3 (0.4-2.0) Calcium (8.4-10.2) mg/dL Magnesium (1.6-2.3) mg/dL Total Bilirubin (0.2-1.3) mg/dL AST (14-36) U/L ALT (0-35) U/L Alkaline Phosphatase (38-126) U/L Troponin I (0.000-0.034) ng/mL NT-Pro-B Natriuret Pep (0-900) pg/mL Serum Total Protein (6.3-8.2) g/dL Albumin (3.5-5.0) g/dL Urine Color (YELLOW) Urine Appearance (CLEAR) Urine pH (5-6) Ur Specific [place] (1.005-1.025) Urine Protein (Negative) Urine Ketones (NEGATIVE) Urine Blood (0-5) Dionisio/ul Urine Nitrite (NEGATIVE) Urine Bilirubin (NEGATIVE) Urine Urobilinogen (0-1) mg/dL Ur Leukocyte Esterase (NEGATIVE) Urine WBC (Auto) (0-5) /HPF Urine RBC (Auto) (0-2) /HPF U Epithel Cells (Auto) (FEW) /HPF Urine Bacteria (Auto) (NEGATIVE) /HPF Urine Culture Reflexed (NO) Urine Glucose (NEGATIVE) mg/dL Ethyl Alcohol (0-10) mg/dL - Progress Progress: unchanged Counseled pt/family regarding: diagnosis, need for follow-up, rad results <ANKUSH BENEDICT DANYA - Last Filed: 09/24/19 06:43> <SARANYA HARDY - Last Filed: 09/24/19 08:28> - Progress Progress Note: 09/24/19 07:02 Patient is doing well with no signs of any focal neurologic deficits 09/24/10 07:05 Discussed the patient with Dr Cuong MD, [facility] emergency department attending. Dr Hardy will determine final disposition of the patient after re- evaluation of labs, imaging and patient. (ANKUHS BENEDICT) 09/24/19 08:18 pt feeling much better. pt re examined. no dizziness. no cp (SARANYA HARDY ) <ANKUSH BENEDICT - Last Filed: 09/24/19 06:43> - Departure Departure Disposition: Home Critical Care Time: No <SARANYA HARDY - Last Filed: 09/24/19 08:28> - Departure Clinical Impression: Confusion, Vertigo Dyspnea Qualifiers: Dyspnea type: unspecified Qualified Code(s): R06.00 - Dyspnea, unspecified Hypertension Qualifiers: Hypertension type: essential hypertension Qualified Code(s): I10 - Essential ( primary) hypertension Condition: Stable Referrals: GERARDO EVERETT MD [Primary Care Provider] - Instructions: Vertigo (a Type of Dizziness) (DC) Additional Instructions: drink plenty of fluids. follow up with primary doctor for further management.
[2019-09-24] MEDS ORDERED: Sodium Chloride 0.9% 1000 ML 1,000 ML ONE (05:56)
[2019-09-24 06:01] LABS: Absolute Neutrophil Ct (ANC) 3.66 (1.4-6.9); BASOPHIL % 0.6 % (0.0-0.4); Basophil (Absolute #) 0.04 (0-0.4); Eosinophil % 2.4 % (0.00-5.0); Eosinophil (Absolute #) 0.17 (0-0.5); Hemoglobin 12.6 gm/dl (12.0-16.0); Lymphocyte (Absolute #) 2.38 (1.0-4.6); Lymphocytes % 34.2 % (24.0-44.0); Mean Cell Volume 98.2 fl (78-100); Mean Corpuscular Hemoglobin 32.6 pg (26-32); Mean Corpuscular Hgb Concent. 33.2 g/dl (32-36); Mean Platelet Volume 11.4 fl (6-9.5); Monocytes % 10.1 % (0.0-12.0); Neutrophil % 52.7 % (36.0-66.0); Platelet Count 186 K/mm3 (150-450); Red Blood Count 3.87 M/mm3 (4.1-5.4); Red Cell Distribution Width 12.9 % (11.5-14.0)
[2019-09-24 06:13] LABS: ALBUMIN 3.8 g/dL (3.5-5.0); ALKALINE PHOSPHATASE 49 U/L (38-126); BLOOD UREA NITROGEN 22 mg/dL (7-17); CHLORIDE 98 mmol/L (98-107); Calcium 9.5 mg/dL (8.4-10.2); Carbon Dioxide 28 mmol/L (22-30); Creatinine 1 1.04 mg/dL (0.52-1.04); Glucose 118 mg/dL (74-106); MAGNESIUM 1.5 mg/dL (1.6-2.3); Potassium 3.9 mmol/L (3.5-5.1); SGOT/AST 21 U/L (14-36); SGPT/ALT 16 U/L (0-35); SODIUM 134 mmol/L (137-145); Total Protein 6.8 g/dL (6.3-8.2)
[2019-09-24 06:14] LABS: ETHYL ALCOHOL < 10 mg/dL (0-10)
[2019-09-24] MEDS ORDERED: MAG-OX 400 PO SCH (06:25)
[2019-09-24] MEDS ORDERED: MAG-OX 400 ONE (06:36)
[2019-09-24 08:10] LABS: Appearance CLEAR (CLEAR); Bilirubin NEGATIVE (NEGATIVE); Blood SMALL Ery/ul (0-5); Glucose NEGATIVE (NEGATIVE); Ketones NEGATIVE (NEGATIVE); Leukocyte Esterase NEGATIVE (NEGATIVE); Nitrite NEGATIVE (NEGATIVE); Protein,Urine Dip NEGATIVE (Negative); Specific Gravity 1.009 (1.005-1.025); Urobilinogen NEGATIVE mg/dL (0-1); WBC 0-2 /HPF (0-5)
[2019-09-24 08:12] LABS: Amphetamine,Urine NEGATIVE (NEGATIVE); Barbiturate,Urine NEGATIVE (NEGATIVE); Benzodiazepine,Urine NEGATIVE (NEGATIVE); Cocaine,Urine NEGATIVE (NEGATIVE); Methadone,Urine NEGATIVE (NEGATIVE); Opiate,Urine NEGATIVE (NEGATIVE); PCP,Urine NEGATIVE (NEGATIVE); THC,Urine NEGATIVE (NEGATIVE)
[2019-09-24 08:46] VITALS: BP 140/87; PULSE 90; O2SAT 99
--- NOTE | 2019-09-24 09:31 | XRAY ---
Indication: Confusion. Short of breath. Comparison: August 29, 2019. Portable chest demonstrates stable right base calcified granuloma. No focal infiltrate, consolidation, or large effusion. Heart is not enlarged. Bony thorax intact again with mild degenerative changes. Impression: Stable nonacute chest with chronic features.
--- NOTE | 2019-09-24 09:35 | XRAY ---
Indication: Confusion, dizziness, and headache. Status post fall 2 weeks ago with left posterior head injury. Multiple contiguous axial images obtained through the head without contrast. Comparison: October 19, 2018. Stable age-appropriate global atrophy, minimal periventricular degenerative micro-ischemia, and remote right caudate lacunar infarct. No acute intracranial hemorrhage, abnormal extra-axial fluid collection, or mass effect. Fourth ventricle is midline. Bony calvarium intact. Stable minimal left ethmoid sinus mucosal thickening. Mastoid air cells are clear. Impression: Stable nonacute senile brain with remote right caudate lacunar infarct and minimal paranasal sinus disease. Comment: Preliminary interpretation was made by [facility]. No critical discrepancy. CTDI 56.98
== END 2019-09-24 08:44 | disposition home or self-care (01) ==
LOC: ED 05:15
DX: R06.00 Dyspnea, unspecified (principal); I10 Essential (primary) hypertension; R41.0 Disorientation, unspecified; R53.83 Other fatigue; R51 Headache; Z79.899 Other long term (current) drug therapy; R42 Dizziness and giddiness; I25.10 Atherosclerotic heart disease of native coronary artery without angina pectoris; E11.9 Type 2 diabetes mellitus without complications; E03.9 Hypothyroidism, unspecified
CPT/HCPCS: 36000; 36415; 70450; 71045; 80053; 80307; 81001; 82947; 83605; 83735; 83880; 84484; 85025; 93005; 93041; 96360; 99284; G0480; P9612; A9270-GY

== ENCOUNTER 2019-12-16 10:45 | Observation (INO) | payer MEDICARE ==
--- NOTE | 2019-12-16 08:52 | HP ---
DATE OF SURGERY: 12/16/2019 HISTORY OF PRESENT ILLNESS: The patient is a 74 year-old the past year or so increasing size dark pigmented, increasing in size over the past month. The lesion of undetermined behavior in need of excision. PAST MEDICAL HISTORY: Diabetes, anxiety, hypertension. History of myocardial infarction in the past. Coronary artery disease, irritable bowel syndrome, renal cysts in the past, osteoarthritis, chronic back pain, peripheral neuropathy, diabetes, hypothyroidism. PAST SURGICAL HISTORY: Hysterectomy, joint replacement in the past. She had umbilical hernia 20 years ago. Total hysterectomy bilateral salpingo-oophorectomy 40 years ago. Appendectomy 25 years ago. She had tubal in the past. MEDICATIONS: Acyclovir, alprazolam, aspirin, atorvastatin, Belbuca, carvedilol, Clopidogrel, Colace, hyaluronic acid, diclofenac, estradiol, vaginal cream, fluconazole spray, gabapentin, hydrochlorothiazide, hydrocodone, levothyroxine, lisinopril, loratadine, metformin, Narcan, omeprazole, oxycodone, pantoprazole, polyethylene glycol, Sumatriptan, Tamsulosin, Trazodone, acyclovir, Verapamil. ALLERGIES: X-RAY DYE/IV CONTRAST. AMOXICILLIN. IODINE. ADHESIVE TAPE. PENICILLIN (RASH). FAMILY HISTORY: Myocardial infarction and renal disease. SOCIAL HISTORY: Denies smoking. REVIEW OF SYSTEMS: Fourteen systems reviewed. As noted above and per preadmission assessment. No current chest pain or palpitations. Other systems negative or noncontributory as above and per preadmission questionnaire. PHYSICAL EXAMINATION: GENERAL: No acute distress. HEENT: Sclerae nonicteric. NECK: No JVD. CHEST: Equal excursion, nonlabored breathing. CVS: Regular rate and rhythm. ABDOMEN: Soft. No peritoneal signs. EXTREMITIES: No significant edema. NEURO: Alert, oriented, moving extremities symmetrically. No gross motor deficits noted. IMPRESSION: Pigmented enlarging lesion on right side of her face of indeterminate behavior, need of excisional biopsy possible flap, possible skin graft. General risk of bleeding or infection, risk of wound dehiscence, risk of involved margins, possible need for skin graft. Risk of failure of taking to that. General risk of aches and pains, scar formation, risk of nerve irritation, scar formation or injury, risk of weakness of chewing, drooped lip, weakness of eyelid or other symptoms possible transient, possible senior care but not limited to, possible requiring other procedures. She agrees to the planned procedure. Will have her blood thinners held preoperatively, excisional biopsy of right face lesion of indeterminate behavior possible flap, possible skin graft depending on operative findings. It should be noted that Dr. Corado is managing her pain control perioperatively so we will not write her a script.
[~2019-12-16 10:45] MED LIST changes: -DIPRIVAN 200 MG/20 ML IV ONE; -Lactated Ringers 1,000 ML IV SCH; +MINERAL OIL LIGHT 10 ML FOR SURGERY ONE; -Quelicin Fliptop 200 MG/10 ML ONE; -SUBLIMAZE 100 MCG/2 ML ONE; +XYLOCAINE 1% HCL 20 ML MDV ONE; -Zemuron 100 MG/10 ML ONE
[2019-12-16] MEDS: Lactated Ringers 1,000 ML IV SCH (12:13)
[2019-12-16] MEDS ORDERED: DIPRIVAN 200 MG/20 ML IV ONE (14:36)
[2019-12-16] MEDS ORDERED: SUBLIMAZE 100 MCG/2 ML ONE ×3 (14:36→15:52)
[2019-12-16] MEDS ORDERED: Versed 2 MG/2 ML Injection ONE (14:37)
[2019-12-16] MEDS ORDERED: KEFZOL 1 GM ONE (14:48)
[2019-12-16] MEDS ORDERED: PHENYLEPHRINE HCL ONE (15:15)
[2019-12-16] MEDS ORDERED: Lactated Ringers 0 ML IV ONE (15:17)
[2019-12-16] MEDS ORDERED: MORPHINE SULFATE 10 MG/ML ONE (15:52)
[2019-12-16] MEDS ORDERED: APRESOLINE 20 MG/ML INJ ONE ×2 (16:00→16:22)
[2019-12-16] MEDS ORDERED: LOPRESSOR 5 MG/5 ML INJECTION IV ONE (16:36)
[2019-12-16 19:13] LABS: Appearance CLEAR (CLEAR); Bilirubin NEGATIVE (NEGATIVE); Blood SMALL Ery/ul (0-5); Glucose NEGATIVE (NEGATIVE); Ketones NEGATIVE (NEGATIVE); Leukocyte Esterase TRACE (NEGATIVE); Nitrite NEGATIVE (NEGATIVE); Protein,Urine Dip NEGATIVE (Negative); Specific Gravity 1.005 (1.005-1.025); Urobilinogen NEGATIVE mg/dL (0-1)
[2019-12-16] MEDS ORDERED: Zofran 4 MG/2 ML VIAL IV PRN (20:25)
[2019-12-16] MEDS ORDERED: NORCO 5/325 MG PO PRN (20:45)
[2019-12-16] MEDS ORDERED: FISH OIL 1,000 MG CAPSULE PO SCH (22:00)
[2019-12-16] MEDS ORDERED: XANAX 1 MG PO PRN (22:00)
[2019-12-16] MEDS ORDERED: HUMALOG SQ PRN (22:14)
[2019-12-16] MEDS ORDERED: NORCO 5/325 MG ONE (22:44)
[2019-12-16] MEDS: BENTYL 20 MG PO SCH (22:48)
[2019-12-16] MEDS: Trileptal 300 MG Tablet PO SCH (22:48)
[2019-12-16] MEDS: Protonix 40MG Tablet PO SCH (22:48)
[2019-12-16] MEDS: NON-FORMULARY ITEM SL SCH (22:50)
[2019-12-17] MEDS: APRESOLINE 20 MG/ML INJ IV PRN ×2 (01:08→05:27)
[2019-12-17] MEDS ORDERED: NORCO 7.5/325 MG TAB ONE (05:23)
[2019-12-17] MEDS: NORCO 7.5/325 MG TAB PO PRN ×3 (05:25→22:16)
[2019-12-17] MEDS ORDERED: Glucophage 500 MG PO SCH (08:00)
[2019-12-17] MEDS ORDERED: Acular OPTH SOL OP PRN (08:30)
--- NOTE | 2019-12-17 09:12 | PCM.HP ---
History of Present Illness - Chief Complaint Chief Complaint: hypertensive crisis History of Present Illness: is a 74 year old female pt of Dr. Cedillo with DM, HTN, CAD (hx LA) who had surgery yesterday with Dr. Bolaños for a lesion on the R side of her face (for which skin graft was a possibility, but not done per pt). In recovery she was having CP so was ordered to go to ER and was admitted. She had 2 normal troponins (and a normal EKG) but her 3rd, 4th, and 5th troponins have been elevated; the last to 0.147. She c/o several days of 3-01/30 dull chest pain, substernal radiating to underneath the R breast. Has had some SOB and palpitations. Chronically has sweats. She had elevated bp up to 200 systolic but her most recent was 140s systolic. I spoke with Dr. Adamson, since there are no acute changes on the EKG will go ahead with current observation and he will see her later on today. - Review of Systems Ears, Nose, & Throat: Other (facial pain s/p surgery; also neck is tender) Abdominal/Gastrointestinal: Vomiting (x1 yesterday), Other (some bleeding rectally intermittent, pt has hemorrhoids) Skin: Skin Lesions Endocrine: Excessive Sweating (chronically, recently) Medications & Allergies Home Medications: Home Medication List Alprazolam 0.5 mg [xanAX 0.5 MG] 1 mg PO TID 03/30/12 [History Confirmed 12/16/19] Hydrocodone/APAP 10/325 mg [[place] 10/325 MG Tablet] 7.5 mg PO Q4H PRN PRN 03/30/12 [History Confirmed 12/16/19] Lisinopril 20 mg PO DAILY 03/30/12 [History Confirmed 12/16/19] Melatonin/Pyridoxine HCl (B6) [Melatonin 5 mg Tablet] 10 mg PO HS 03/30/12 [ History Confirmed 12/16/19] Metformin HCl 500 mg [Glucophage 500 MG] 500 mg PO BID 03/30/12 [History Confirmed 12/16/19] [place]-3 Fatty Acids/Fish Oil [Fish Oil 1,000 mg Softgel] 2 cap PO HS 03/30/12 [ History Confirmed 12/16/19] Verapamil HCl [Verapamil ER] 360 mg PO HS 03/30/12 [History Confirmed 12/16/19] Levothyroxine Sodium 125 mcg PO DAILY 03/31/12 [History Confirmed 12/16/19] Polyethylene Glycol 3350 [Miralax] 1 capful PO DAILY 03/31/12 [History Confirmed 12/16/19] Buprenorphine HCl [Belbuca] 75 mcg BC BID 05/21/19 [History Confirmed 12/16/19] Dicyclomine HCl 20 mg [Bentyl 20 mg] 20 mg PO QID 05/21/19 [History Confirmed 12/16/19] Ketorolac Tromethamine 0.5% [Acular OPTH LASHAUN] 5 ml OP PC PRN 05/21/19 [ History Confirmed 12/16/19] Lansoprazole [Prevacid] 30 mg PO BID 05/21/19 [History Confirmed 12/04/19] Vitamin E 1,000 unit PO DAILY 05/21/19 [History Confirmed 12/16/19] Aspirin EC 81 mg [Ecotrin 81 mg] 81 mg PO DAILY 12/04/19 [History Confirmed 12/16/19] Duloxetine HCl [Cymbalta] 60 mg PO DAILY 12/04/19 [History Confirmed 12/16/19] Oxcarbazepine 300 mg [Trileptal 300 MG Tablet] 300 mg PO BID 12/16/19 [ History Confirmed 12/16/19] Allergies/Adverse Reactions: Allergies Allergy/AdvReac Type Severity Reaction Status Date / Time iodine Allergy Severe Rash Verified 12/16/19 11:59 adhesive tape Allergy Intermediate Rash Verified 12/16/19 11:59 amoxicillin AdvReac Intermediate Nausea and Verified 12/16/19 11:59 Vomiting - Past Medical History Past Medical History: Yes Neurological History: No Pertinent History ENT History: Other Cardiac History: Coronary Artery Disease, Hypertension Respiratory History: No Pertinent History Endocrine Medical History: Diabetes Type II, Hypothyroidism Musculoskelatal History: Arthritis, Rheumatoid Arthritis, Fibromyalgia GI Medical History: No Pertinent History History: No Pertinent History Pyscho-Social History: Anxiety Reproductive Disorders: Other Comment: 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 sinus drainage - Female History Are you now?: No - Past Surgical History Past Surgical History: Yes Neuro Surgical History: No Pertinent History Cardiac History: No Pertinent History Respiratory Surgery: No Pertinent History GI Surgical History: Hernia Repair Genitourinary Surgical Hx: No Pertinent History Musculskeletal Surgical Hx: Orthopedic Surgery Female Surgical History: Hysterectomy Other Surgical History: Lower eyelid syurgery to remove cancer. foot surgery bunion and ankle,elbow-lt ,left side face skin growth, colonoscopy, - Social History Smoking Status: Never smoker Exposure to second hand smoke: No Alcohol: None Drug Use: none - Physical Exam Vital Signs: Vital Signs - 24 hr Temp Pulse Resp BP Pulse Ox 12/17/19 07:09 97.8 F 99 H 20 140/63 96 12/17/19 03:00 97.6 F 110 H 20 196/86 96 12/16/19 23:16 97.5 F 97 H 18 217/105 95 12/16/19 20:21 97.6 F 101 H 22 179/87 97 12/16/19 19:16 97.6 F 101 H 22 179/87 97 12/16/19 12:20 98.3 F 67 18 143/77 97 12/16/19 12:13 98.3 F 67 18 143/77 97 General Appearance: no apparent distress, alert Neurologic Exam: oriented x 3, cooperative Ears, Nose, Throat Exam: moist mucous membranes, other (R cheek bandaged; bandage is clean and dry) Neck Exam: normal inspection, other (mild ttp throughout neck), No lymphadenopathy Respiratory Exam: normal breath sounds, lungs clear, No crackles/rales, No rhonchi, No wheezing Cardiovascular Exam: regular rate/rhythm, normal heart sounds, No murmur Gastrointestinal/Abdomen Exam: soft, normal bowel sounds, No tenderness, No distention, No mass, No guarding, No rebound Extremity Exam: normal inspection, No pedal edema, No swelling Skin Exam: normal color, warm, dry, No rash Results - Labs Lab/Micro Results: Accuchecks Date 12/16/19 Time 12:39 Accucheck Value: 138 Accucheck Value: 115 Lab Results-Last 24 Hours 12/16/19 12/16/19 12/16/19 Range/Units 18:15 18:15 22:43 Troponin I < 0.012 < 0.012 (0.000-0.034) ng/mL Urine Color COLORLESS (YELLOW) Urine Appearance CLEAR (CLEAR) Urine pH 8.0 (5-6) Ur Specific [place] 1.005 (1.005-1.025) Urine Protein NEGATIVE (Negative) Urine Ketones NEGATIVE (NEGATIVE) Urine Blood SMALL (0-5) Doinisio/ul Urine Nitrite NEGATIVE (NEGATIVE) Urine Bilirubin NEGATIVE (NEGATIVE) Urine Urobilinogen NEGATIVE (0-1) mg/dL Ur Leukocyte Esterase TRACE (NEGATIVE) Urine WBC (Auto) 6-10 (0-5) /HPF Urine RBC (Auto) 3-5 (0-2) /HPF U Epithel Cells (Auto) NONE (FEW) /HPF Urine Bacteria (Auto) NONE (NEGATIVE) /HPF Urine Glucose NEGATIVE (NEGATIVE) mg/dL 12/17/19 12/17/19 12/17/19 Range/Units 01:42 04:25 07:26 Troponin I 0.045 H* 0.095 H* 0.147 H* (0.000-0.034) ng/mL Urine Color (YELLOW) Urine Appearance (CLEAR) Urine pH (5-6) Ur Specific [place] (1.005-1.025) Urine Protein (Negative) Urine Ketones (NEGATIVE) Urine Blood (0-5) Dionisio/ul Urine Nitrite (NEGATIVE) Urine Bilirubin (NEGATIVE) Urine Urobilinogen (0-1) mg/dL Ur Leukocyte Esterase (NEGATIVE) Urine WBC (Auto) (0-5) /HPF Urine RBC (Auto) (0-2) /HPF U Epithel Cells (Auto) (FEW) /HPF Urine Bacteria (Auto) (NEGATIVE) /HPF Urine Glucose (NEGATIVE) mg/dL Microbiology 12/16/19 18:15 Urine Culture - Preliminary Catherized NO GROWTH TO DATE Accuchecks Date 12/16/19 Time 12:39 Accucheck Value: 138 Accucheck Value: 115 - Other Procedures and Tests Respiratory Therapy 12/17/19 08:32 EKG STAT Assessment/Plan (1) Chest pain Current Visit: Yes Status: Acute Qualifiers: Chest pain type: unspecified Qualified Code(s): R07.9 - Chest pain, unspecified Assessment & Plan: with elevated troponin, but no changes on EKG. Dr. Adamson consulted and to see the pt today, thank you! Code(s): R07.9 - CHEST PAIN, UNSPECIFIED (2) Hypertension Current Visit: No Status: Chronic Qualifiers: Hypertension type: essential hypertension Qualified Code(s): I10 - Essential (primary) hypertension Assessment & Plan: Hypertensive emergency earlier with elevated BP; has come down currently. Will make sure pt has prn bp meds. 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
[2019-12-17] MEDS ORDERED: MEDICATION INTERVENTION MC SCH (10:00)
[2019-12-17] MEDS ORDERED: NON-FORMULARY ITEM (Duloxetine Hcl [Cymbalta] 60 MG) PO SCH (10:00)
[2019-12-17] MEDS ORDERED: MEDICATION INTERVENTION PO SCH (10:15)
[2019-12-17] MEDS: Miralax Powder 17GM PACKET PO SCH (10:43)
[2019-12-17] MEDS: Protonix 40MG Tablet PO SCH ×2 (10:44→22:17)
[2019-12-17] MEDS: Cymbalta 30 MG Capsule PO SCH (10:45)
[2019-12-17] MEDS: BENTYL 20 MG PO SCH ×4 (10:46→22:17)
[2019-12-17] MEDS: Zestril 20 MG PO SCH (10:46)
[2019-12-17] MEDS: SYNTHROID 125 MCG PO SCH (10:47)
[2019-12-17] MEDS: XANAX 1 MG PO SCH ×3 (10:47→22:17)
[2019-12-17] MEDS: ENOXAPARIN SODIUM SQ SCH (10:48)
[2019-12-17] MEDS: ECOTRIN 81 MG PO SCH (10:48)
[2019-12-17] MEDS: Trileptal 300 MG Tablet PO SCH ×2 (10:49→22:17)
[2019-12-17] MEDS: NON-FORMULARY ITEM SL SCH ×2 (10:51→22:19)
--- NOTE | 2019-12-17 11:14 | OP ---
SURGERY DATE/TIME: 12/16/2019 1436 PREOPERATIVE DIAGNOSIS: Nonhealing lesion with history of pigmentation and ulceration, indeterminant behavior right face. POSTOPERATIVE DIAGNOSIS: Nonhealing lesion with history of pigmentation and ulceration, indeterminate behavior right face. PROCEDURE: Excisional biopsy right face nonhealing lesion of indeterminate behavior (approximately 3.2 cm with margins) with advancement flap closure. SURGEON: Dr. Adam Rivero. ARSON AND BOMB INVESTIGATOR: Paris Goodwin, Medical Student III. ANESTHESIA: General. ESTIMATED BLOOD LOSS: Minimal. INDICATIONS: As noted above. Risks and benefits explained in detail and not limited to and consent obtained. The site had been confirmed and marked in preoperative area. She had one part falling off recently when she was taking a shower but she still had nonhealing area. It looked like she had some ulceration. It is felt that it needed excision for definitive path. Risks and benefits explained in detail but not limited to, including risk of nerve irritation, scar formation or injury. Risk of dry eyes, chewing dysfunction, drooped lip but not limited to. General risk of aches, pains, burning or numbness possible intermediate accountant chronic in nature. She understood all the above and agreed to the planned procedure. DESCRIPTION OF PROCEDURE AND FINDINGS: The patient is taken to the operating room. General anesthesia induced. The face prepped and draped in usual sterile fashion. After official time out and no disagreement with planned procedure, under loop magnification and bright OR lights marking out to normal appearing skin on either side of this roughened area with some ulceration in the center. There is some definitive color change compared to the more normal surrounding skin. She had prior surgery in front of her ear so she did not have as much loose skin right there but we were able to dissect down around it in spindle-shaped fashion. There is a second area that seemed to be inferior and a little bit posterior it was necessary to include this area as well. Dissection carried down to normal appearing deeper subcutaneous tissue staying directly deeper area. Specimen passed off. The specimen with margin was about 3.2 cm again requiring complex closure with undermining flaps on either side and carefully monitoring the eyelid function. The flaps were mobilized and were quite snug but was able to be just be closed, wider excision would have definitely required skin graft. Otherwise, both these flaps were undermined and mobilized back towards the midline with interrupted 3-0 Vicryl. Deep superficial subcu and skin closed with 4-0 Vicryl running subcuticular fashion. In the center part was most snug area, some 4-0 vertical mattress sutures were placed and reinforced temporarily. Steri-Strips and sterile dressing applied. 0.25% Marcaine local had been injected along the wound area back towards the origin of the nerves at the base of the ear. The patient tolerated the procedure well. Findings discussed with the family out in the waiting room. She was transferred to recovery in stable condition.
[2019-12-17] MEDS: Lactated Ringers 1,000 ML IV SCH (17:32)
[2019-12-17] MEDS ORDERED: MELATONIN PO SCH (22:00)
[2019-12-17] MEDS ORDERED: ISOPTIN SR 180MG PO SCH ×2 (22:00)
[2019-12-17] MEDS ORDERED: PYRIDOXINE HCL PO SCH (22:00)
[2019-12-17] MEDS ORDERED: ISOPTIN S.R. 240 MG PO SCH (22:00)
[2019-12-17] MEDS: Coreg 6.25 MG PO SCH (22:17)
[2019-12-18] MEDS: NORCO 7.5/325 MG TAB PO PRN (07:01)
[2019-12-18 07:29] VITALS: O2SAT 95
--- NOTE | 2019-12-18 07:59 | CONS ---
CONSULT DATE: 12/17/2019 BRIEF HISTORY: This is a 74 year-old female with history of coronary artery disease who was seen because of chest pains and a mildly elevated troponin I. The patient had excision biopsy of a skin lesion of the right side of the face and postoperatively she felt sick and complaining of headache and jaw pain. In addition, she also had some pain in the upper epigastric area which appears to be aggravated by deep inspiration. Her serial troponin I was mildly elevated. On examination she is chest pain free. Her EKG did not show any significant ST displacement. She stated that postoperatively her blood pressure went up. The patient has had previous non-ST elevation myocardial infarction way back in 2018 for which she underwent a cardiac catheterization that showed only moderate disease of the right coronary artery, both LAD and circumflex were free of any significant disease. CARDIAC RISK FACTORS: Positive for diabetes. Positive for hypertension. She does not smoke. She has hyperlipidemia. FAMILY HISTORY: Positive coronary artery disease. Her father, mother and brother from myocardial infarction. MEDICATIONS: Alprazolam, aspirin, Belbuca, Bentyl, Cymbalta, Prevacid, levothyroxine, lisinopril, melatonin, metformin, omega-3, MiraLAX, Verapamil, vitamin E, carvedilol. 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 No history of seizures. She has history of headaches. RESPIRATORY: No chronic cough. No hemoptysis. GI: She has history of reflux symptoms. No colon disorder. : She has history of interstitial cystitis. PERIPHERAL VASCULAR: No history of DVT or claudication. MUSCULOSKELETAL: She has degenerative joint disorder. CONSTITUTIONAL: No significant weight gain, weight loss. SKIN: She had recent excision biopsy of skin lesion on the right side of the face. . HEMATOLOGY: No blood dyscrasia. ENDOCRINE: She has history of goiter and on thyroid replacement. PAST SURGICAL HISTORY: Foot surgery. Repair of strangulated hernia. Hysterectomy. Tubal ligation. Bunionectomy. SOCIAL HISTORY: She is retired. She is . 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 She has no significant alcohol intake. PHYSICAL EXAMINATION: Blood pressure 139/81 with heart rate of 80. She is not in any form of distress. HEENT: Unremarkable. NECK: No significant JVD. No carotid bruit. CHEST: The breath sounds are clear. CARDIAC: Heart tones are normal. The rhythm is regular. ABDOMEN: Soft with normal bowel sounds. No bruit. EXTREMITIES: No significant edema. Good distal pulses. LAB DATA AND DIAGNOSTIC TESTS: The EKG showed normal sinus rhythm with isolated PVC's with left axis deviation. IMPRESSION: In essence the patient had: 1) Mildly elevated troponin I which may be secondary to demand ischemia probably due to the hypertensive urgency. Her chest pain is somewhat atypical for angina, sounds more pleuritic. Her recent cardiac catheterization did not show any significant disease that required any intervention. At this time she is asymptomatic. I will repeat the troponin I in the morning. She has had previous history of an elevated troponin I during stressful situations. 2) Hypertension not well controlled. I will add carvedilol which has not been taken for the last 24 hours, continue with the rest of the medical regimen. 3) Hyperlipidemia. Continue with statin therapy. I will follow up with you.
[2019-12-18] MEDS: BENTYL 20 MG PO SCH (09:15)
[2019-12-18] MEDS: ENOXAPARIN SODIUM SQ SCH (09:15)
[2019-12-18] MEDS: XANAX 1 MG PO SCH (09:15)
[2019-12-18] MEDS: ECOTRIN 81 MG PO SCH (09:15)
[2019-12-18] MEDS: Coreg 6.25 MG PO SCH (09:15)
[2019-12-18] MEDS: Zestril 20 MG PO SCH (09:15)
[2019-12-18] MEDS: Cymbalta 30 MG Capsule PO SCH (09:15)
[2019-12-18] MEDS: Protonix 40MG Tablet PO SCH (09:15)
[2019-12-18] MEDS: SYNTHROID 125 MCG PO SCH (09:15)
[2019-12-18] MEDS: Miralax Powder 17GM PACKET PO SCH (09:16)
[2019-12-18] MEDS: Trileptal 300 MG Tablet PO SCH (09:17)
--- NOTE | 2019-12-18 09:49 | PCM.DS ---
Discharge Summary Date of Admission: 12/16/19 18:40 Admitting Physician: GERARDO EVERETT Consults: Consults on Case 12/17/19 08:32 Consult Cardiology ROUTINE Primary Care Provider: GERARDO EVERETT Allergies Allergies iodine Allergy (Severe, Verified 12/16/19 11:59) Rash adhesive tape Allergy (Intermediate, Verified 12/16/19 11:59) Rash amoxicillin Adverse Reaction (Intermediate, Verified 12/16/19 11:59) Nausea and Vomiting Hospital Summary - Hospital Course Hospital Course: patient was admitted with hypertensive episode following minor surgical procedure, had some chest pain in PACU but no pain since admission. had mild elevation in troponin, trending down and bp is now well controlled. she was seen by Dr Adamson in consultation and having an echo done today. she states she feels great and would like to go home today. - Vitals & Intake/Output Vital Signs: Vital Signs Temperature 97.6 F 12/18/19 07:28 Pulse Rate 69 12/18/19 07:28 Respiratory Rate 20 12/18/19 07:28 Blood Pressure 160/68 12/18/19 07:28 O2 Sat by Pulse Oximetry 95 12/18/19 07:28 Intake & Output: Intake & Output 12/15/19 12/16/19 12/17/19 12/18/19 11:59 11:59 11:59 11:59 Intake Total 936 2314 Output Total 1950 975 Balance -1014 1339 Weight 77.7 kg - Lab Lab Results-Last 24 Hrs: Accuchecks Date 12/17/19 Time 21:00 Accucheck Value: 116 Accucheck Value: 126 Accucheck Value: 153 Accucheck Value: 164 Lab Results-Last 24 Hours 12/18/19 Range/Units 04:30 Troponin I 0.084 H* (0.000-0.034) ng/mL Micro Results-Entire Visit: Microbiology 12/16/19 18:15 Urine Culture - Final Catherized <10K NORMAL SKIN JEFFREY PROBABLE SKIN CONTAMINANT Accuchecks Date 12/17/19 Time 21:00 Accucheck Value: 116 Accucheck Value: 126 Accucheck Value: 153 Accucheck Value: 164 - Radiology Exams Ordered Rad Exams-Entire Visit: Radiology Procedures Category Date Time Status ECHO W/2D AND DOPPLER [US] Routine Exams 12/18/19 08:00 Ordered - Procedures and Test Procedures and Tests throughout Hospitalization: Therapy Orders & Screens 12/16/19 17:17 EKG ONCE Comment: Diagnosis: skin lesion 12/17/19 08:32 EKG STAT Comment: Diagnosis: hypertensive crisis Discharge Exam General Appearance: no apparent distress, alert Respiratory Exam: normal breath sounds, lungs clear, No respiratory distress Cardiovascular Exam: regular rate/rhythm, normal heart sounds Gastrointestinal/Abdomen Exam: soft, No tenderness, No mass Skin Exam: normal color, warm, dry Final Diagnosis/Problem List - Final Discharge Diagnosis/Problem (1) Elevated troponin Current Visit: Yes Status: Acute Assessment & Plan: likely elevated secondary to strain/hypertension. trending downward, having echo this am. home today if ok with Dr Adamson Code(s): R79.89 - OTHER SPECIFIED ABNORMAL FINDINGS OF BLOOD CHEMISTRY (2) Hypertension Current Visit: No Status: Chronic Assessment & Plan: better control at this time, home on current meds Code(s): I10 - ESSENTIAL (PRIMARY) HYPERTENSION (3) Chest pain Current Visit: Yes Status: Acute Code(s): R07.9 - CHEST PAIN, UNSPECIFIED - Discharge Disposition: Home, Self-Care Condition: Stable Prescriptions: New Carvedilol 6.25 mg [Coreg 6.25 MG] 6.25 mg PO BID #60 tablet Continue Metformin HCl 500 mg [Glucophage 500 MG] 500 mg PO BID Lisinopril 20 mg PO DAILY Verapamil HCl [Verapamil ER] 360 mg PO HS Alprazolam 0.5 mg [xanAX 0.5 MG] 1 mg PO TID Melatonin/Pyridoxine HCl (B6) [Melatonin 5 mg Tablet] 10 mg PO HS Hydrocodone/APAP 10/325 mg [[place] 10/325 MG Tablet] 7.5 mg PO Q4H PRN PRN PRN Reason: Pain [place]-3 Fatty Acids/Fish Oil [Fish Oil 1,000 mg Softgel] 2 cap PO HS Polyethylene Glycol 3350 [Miralax] 1 capful PO DAILY Levothyroxine Sodium 125 mcg PO DAILY Dicyclomine HCl 20 mg [Bentyl 20 mg] 20 mg PO QID Ketorolac Tromethamine 0.5% [Acular OPTH LASHAUN] 5 ml OP PC PRN PRN Reason: Itching Lansoprazole [Prevacid] 30 mg PO BID Buprenorphine HCl [Belbuca] 75 mcg BC BID Vitamin E 1,000 unit PO DAILY Duloxetine HCl [Cymbalta] 60 mg PO DAILY Aspirin EC 81 mg [Ecotrin 81 mg] 81 mg PO DAILY Oxcarbazepine 300 mg [Trileptal 300 MG Tablet] 300 mg PO BID Additional Instructions: DR MAHER APPOINTMENT IN [place] [facility] OFF[facility] Follow up with: GERARDO EVERETT MD [Primary Care Provider] - 1 Week SETH MAHER [COURTESY STAFF] - 12/23/19 9:00 am
[2019-12-18] MEDS ORDERED: PATIENT OWN MEDICATION BC SCH (10:00)
[2019-12-18 10:53] VITALS: BP 135/63; PULSE 63
--- NOTE | 2019-12-18 13:20 | ECHO ---
Transthoracic echocardiographic examination and color Doppler was done on 12/18/2019. INDICATION: Chest pains, elevated troponin I. IMPRESSION: 1) NO REGIONAL WALL MOTION ABNORMALITY. ESTIMATED GLOBAL LEFT VENTRICULAR EJECTION FRACTION BETWEEN 60 AND 65%. 2) MILD MITRAL REGURGITATION. 3) TRACE TRICUSPID REGURGITATION. RIGHT VENTRICULAR SYSTOLIC PRESSURE OF 31 MM OF MERCURY. 4) LEFT VENTRICULAR HYPERTROPHY. The left ventricle is visualized and demonstrated adequate motion of all the segments. Estimated global left ventricular ejection fraction 60 to 65%. There is mild left ventricular hypertrophy. The mitral valve is seen and this opens adequately. There is mild mitral regurgitation. Left atrium is normal. The aortic valve opens adequately. The peak gradient across the aortic valve is 11 mm of [place]. The right side chambers are normal. There is trace tricuspid regurgitation. The right ventricular systolic pressure of 31 mm of [place].
== END 2019-12-18 13:10 | disposition home health service (06) ==
LOC: SDC 10:45 → MED SURG 18:40
PROVIDERS: ADMIT Family Medicine; ATTEND Family Medicine
DX: I97.3 Postprocedural hypertension (principal); R07.9 Chest pain, unspecified; R79.89 Other specified abnormal findings of blood chemistry; L57.0 Actinic keratosis; L98.9 Disorder of the skin and subcutaneous tissue, unspecified; I10 Essential (primary) hypertension; E78.5 Hyperlipidemia, unspecified; E11.9 Type 2 diabetes mellitus without complications; E03.9 Hypothyroidism, unspecified; I25.10 Atherosclerotic heart disease of native coronary artery without angina pectoris; I25.2 Old myocardial infarction; R51 Headache; R68.84 Jaw pain; Z79.899 Other long term (current) drug therapy
CPT/HCPCS: 14040; 36415; 81001; 82962; 84484; 87086; 93005; 93268; 93306; G0378; 88305; 99100; J0360; J0690; J1650; J2250; J2270; J2370; J2405; J2704; J3010; A9270-GY

== ENCOUNTER 2020-03-21 12:17 | Emergency (ER) | payer MEDICARE ==
[2020-03-21] MEDS ORDERED: Catapres 0.1 MG ONE (12:36)
[2020-03-21] MEDS ORDERED: Zofran 4 MG/2 ML VIAL ONE (12:36)
[2020-03-21] MEDS ORDERED: MORPHINE SULFATE 4 MG INJ ONE (12:37)
[2020-03-21] MEDS ORDERED: Catapres 0.1 MG PO ONE (12:46)
[2020-03-21] MEDS ORDERED: MORPHINE SULFATE 4 MG INJ IV ONE (12:46)
[2020-03-21] MEDS ORDERED: Zofran 4 MG/2 ML VIAL IV ONE (12:46)
[2020-03-21] MEDS ORDERED: Sodium Chloride 0.9% 1000 ML 1,000 ML IV SCH (13:00)
[2020-03-21 13:01] LABS: Absolute Neutrophil Ct (ANC) 5.04 (1.4-6.9); BASOPHIL % 0.5 % (0.0-0.4); Basophil (Absolute #) 0.04 (0-0.4); Eosinophil % 0.8 % (0.00-5.0); Eosinophil (Absolute #) 0.06 (0-0.5); Hematocrit 38.1 % (35-47); Hemoglobin 13.7 gm/dl (12.0-16.0); Lymphocyte (Absolute #) 1.47 (1.0-4.6); Lymphocytes % 20.2 % (24.0-44.0); Mean Cell Volume 93.8 fl (78-100); Mean Corpuscular Hemoglobin 33.7 pg (26-32); Mean Platelet Volume 11.4 fl (7.5-11.0); Monocyte (Absolute #) 0.68 (0.0-1.3); Monocytes % 9.3 % (0.0-12.0); Neutrophil % 69.2 % (36.0-66.0); Platelet Count 230 K/mm3 (150-450); Red Blood Count 4.06 M/mm3 (4.1-5.4); Red Cell Distribution Width 12.1 % (11.5-14.0); White Blood Count 7.3 K/mm3 (4.0-10.5)
[2020-03-21 13:10] LABS: ALBUMIN 4.3 g/dL (3.5-5.0); BILIRUBIN,TOTAL 0.5 mg/dL (0.2-1.3); Calcium 9.5 mg/dL (8.4-10.2); Creatinine 1 0.97 mg/dL (0.52-1.04); Potassium 3.9 mmol/L (3.5-5.1); Total Protein 7.6 g/dL (6.3-8.2)
--- NOTE | 2020-03-21 13:15 | ERPHSYRPT ---
- History of Present Illness Time Seen by Provider: 03/21/20 13:12 Source: patient Exam Limitations: no limitations Patient Subjective Stated Complaint: pt complains of headache, dizziness, and elevated BP for 2-3 days. pt reports that she has been moving. pt denies any injury or accident. pt localizes pain to the top of her head, with most of the pain to the frontal head. Triage Nursing Assessment: pt is aox3, walks to trt room with no difficulty, pupils perrl, hand transcript clerk strong and equal, pt speech is clear, answers questions appropriately, cap refill < 3 seconds, radial pulses strong and equal , pt skin pink warm dry. pt ROM, sensation intact. Physician History: pt complains of headache, dizziness, and elevated BP for 2-3 days. pt reports that she has been moving. pt denies any injury or accident. pt localizes pain to the top of her head, with most of the pain to the frontal head. Patient has been moving recently and so has not been compliant with her blood pressure medicine. She states that her blood pressure was very high last night also. She denies any chest pain nausea vomiting diarrhea constipation. Timing/Duration: yesterday Quality: aching Head Pain Location: frontal, global Severity of Pain-Max: moderate Severity of Pain-Current: moderate Recent Head Trauma: no recent headache/trauma Associated Symptoms: denies symptoms Allergies/Adverse Reactions: iodine Allergy (Severe, Verified 03/21/20 12:36) Rash adhesive tape Allergy (Intermediate, Verified 03/21/20 12:36) Rash amoxicillin Adverse Reaction (Intermediate, Verified 03/21/20 12:36) Nausea and Vomiting Home Medications: Alprazolam 0.5 mg [xanAX 0.5 MG] 1 mg PO TID 03/30/12 [History] Hydrocodone/APAP 10/325 mg [Hardin 10/325 MG Tablet] 7.5 mg PO Q4H PRN PRN 03/30/12 [History] Lisinopril 20 mg PO DAILY 03/30/12 [History] Melatonin/Pyridoxine HCl (B6) [Melatonin 5 mg Tablet] 10 mg PO HS 03/30/12 [ History] Metformin HCl 500 mg [Glucophage 500 MG] 500 mg PO BID 03/30/12 [History] [place]-3 Fatty Acids/Fish Oil [Fish Oil 1,000 mg Softgel] 2 cap PO HS 03/30/12 [ History] Verapamil HCl [Verapamil ER] 360 mg PO HS 03/30/12 [History] Levothyroxine Sodium 125 mcg PO DAILY 03/31/12 [History] Polyethylene Glycol 3350 [Miralax] 1 capful PO DAILY 03/31/12 [History] Buprenorphine HCl [Belbuca] 75 mcg BC BID 05/21/19 [History] Dicyclomine HCl 20 mg [Bentyl 20 mg] 20 mg PO QID 05/21/19 [History] Ketorolac Tromethamine 0.5% [Acular OPTH LASHAUN] 5 ml OP PC PRN 05/21/19 [ History] Lansoprazole [Prevacid] 30 mg PO BID 05/21/19 [History] Vitamin E 1,000 unit PO DAILY 05/21/19 [History] Aspirin EC 81 mg [Ecotrin 81 mg] 81 mg PO DAILY 12/04/19 [History] Duloxetine HCl [Cymbalta] 60 mg PO DAILY 12/04/19 [History] Oxcarbazepine 300 mg [Trileptal 300 MG Tablet] 300 mg PO BID 12/16/19 [ History] Hx Tetanus, Diphtheria Vaccination/Date Given: Yes Hx Influenza Vaccination/Date Given: Yes Hx Pneumococcal Vaccination/Date Given: Yes Immunizations Up to Date: Yes Travel Risk - International Travel Have you traveled outside of the country in past 3 weeks: No Have you or anyone close to you been diagnosed with or: No Do your reside in a community with a known COVID-19 case?: Yes If Yes where:: [place] Coronavirus Screening Has patient experienced Coronavirus symptoms: No - Review of Systems Constitutional: No Fever, No Chills Eyes: No Symptoms Ears, Nose, & Throat: No Symptoms Respiratory: No Cough, No Dyspnea Cardiac: No Chest Pain, No Edema, No Syncope Abdominal/Gastrointestinal: No Abdominal Pain, No Nausea, No Vomiting, No Diarrhea Genitourinary Symptoms: No Dysuria Musculoskeletal: No Back Pain, No Neck Pain Skin: No Rash Neurological: Headache, No Dizziness, No Focal Weakness, No Sensory Changes Psychological: No Symptoms Endocrine: No Symptoms All Other Systems: Reviewed and Negative - Past Medical History Pertinent Past Medical History: Yes Neurological History: No Pertinent History ENT History: Other Cardiac History: Coronary Artery Disease, Hypertension Respiratory History: No Pertinent History Endocrine Medical History: Diabetes Type II, Hypothyroidism Musculoskeletal History: Arthritis, Rheumatoid Arthritis, Fibromyalgia GI Medical History: No Pertinent History History: No Pertinent History Psycho-Social History: Anxiety Female Reproductive Disorders: Other Other Medical History: 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 sinus drainage - Past Surgical History Past Surgical History: Yes Neuro Surgical History: No Pertinent History Cardiac: No Pertinent History Respiratory: No Pertinent History Gastrointestinal: Hernia Repair Genitourinary: No Pertinent History Musculoskeletal: Orthopedic Surgery Female Surgical History: Hysterectomy Other Surgical History: Lower eyelid syurgery to remove cancer. foot surgery bunion and ankle,elbow-lt ,left side face skin growth, colonoscopy, - Social History Smoking Status: Never smoker Exposure to second hand smoke: Yes Drug Use: none Patient Lives Alone: No - Female History Hx Now: No - Nursing Vital Signs Nursing Vital Signs: Initial Vital Signs Temperature 98.2 F 03/21/20 12:22 Pulse Rate 87 03/21/20 12:22 Respiratory Rate 20 03/21/20 12:22 Blood Pressure 223/95 03/21/20 12:22 O2 Sat by Pulse Oximetry 99 03/21/20 12:22 Pain Scale Pain Intensity 10 - Physical Exam General Appearance: no apparent distress Eye Exam: PERRL/EOMI Ears, Nose, Throat Exam: normal ENT inspection, moist mucous membranes Neck Exam: normal inspection, supple, full range of motion, No meningismus Respiratory Exam: normal breath sounds, lungs clear Cardiovascular Exam: regular rate/rhythm, normal heart sounds Gastrointestinal/Abdominal Exam: soft, No tenderness, No distention Back Exam: normal inspection, normal range of motion Mental Status Exam: alert, oriented x 3, cooperative hop separator Exam: normal speech, PERRL, No facial droop Coordination/Gait Exam: normal cerebellar function Motor/Sensory Exam: no motor deficit, no sensory deficit Skin Exam: normal color, warm, dry, No rash SpO2: 99 - Course Nursing assessment & vital signs reviewed: Yes EKG Interpreted by Me: Sinus Rhythm - Radiology Exams Chest X-ray Interpretation: Reviewed by me, Negative - CT Exams Head CT Interpretation: Tele-radiologist Report Ordered Tests: Active Orders 24 hr Category Date Time Status Equipment Installation Professional STAT Care 03/21/20 12:46 Active EKG-ER Only STAT Care 03/21/20 12:50 Active IV Insertion STAT Care 03/21/20 12:46 Active HEAD WITHOUT CONTRAST [CT] Stat Exams 03/21/20 12:49 Taken CBC W DIFF Stat Lab 03/21/20 11:55 Completed CMP Stat Lab 03/21/20 11:55 Completed Erythrocyte Sedimentation Rate Stat Lab 03/21/20 11:55 Completed UA W/RFX UR CULTURE Stat Lab 03/21/20 13:24 Completed Medication Summary Discontinued Medications Generic Name Dose Route Start Last Admin Trade Name Freq PRN Reason Stop Dose Admin Amlodipine Besylate 5 mg 03/21/20 14:11 03/21/20 14:36 Norvasc 5 Mg PO 03/21/20 14:12 5 mg STAT ONE Administration Amlodipine Besylate Confirm 03/21/20 14:34 Norvasc 5 Mg Administered 03/21/20 14:35 Dose 5 mg .ROUTE .STK-MED ONE Clonidine Confirm 03/21/20 12:36 Catapres 0.1 Mg Administered 03/21/20 12:37 Dose 0.2 mg .ROUTE .STK-MED ONE Clonidine 0.2 mg 03/21/20 12:46 03/21/20 12:51 Catapres 0.1 Mg PO 03/21/20 12:47 0.2 mg STAT ONE Administration Sodium Chloride 1,000 mls @ 100 mls/hr 03/21/20 13:00 03/21/20 13:45 Sodium Chloride 0.9% 1000 Ml IV 04/20/20 12:59 100 mls/hr .Q10H ANGEL Administration Sodium Chloride Confirm 03/21/20 13:43 Sodium Chloride 0.9% 1000 Ml Administered 03/21/20 13:44 Dose 1,000 mls @ ud .ROUTE .STK-MED ONE Morphine Sulfate Confirm 03/21/20 12:37 Morphine Sulfate 4 Mg Inj Administered 03/21/20 12:38 Dose 4 mg .ROUTE .STK-MED ONE Morphine Sulfate 4 mg 03/21/20 12:46 03/21/20 12:52 Morphine Sulfate 4 Mg Inj IV 03/21/20 12:47 4 mg STAT ONE Administration Ondansetron HCl Confirm 03/21/20 12:36 Zofran 4 Mg/2 Ml Vial Administered 03/21/20 12:37 Dose 4 mg .ROUTE .STK-MED ONE Ondansetron HCl 4 mg 03/21/20 12:46 03/21/20 12:52 Zofran 4 Mg/2 Ml Vial IV 03/21/20 12:47 4 mg STAT ONE Administration Lab/Rad Data: Laboratory Result Diagrams 03/21/20 11:55 03/21/20 11:55 Laboratory Results 03/21/20 03/21/20 03/21/20 Range/Units 13:24 11:55 11:55 WBC 7.3 (4.0-10.5) K/mm3 RBC 4.06 L (4.1-5.4) M/mm3 Hgb 13.7 (12.0-16.0) gm/dl Hct 38.1 (35-47) % MCV 93.8 (78-100) fl MCH 33.7 H (26-32) pg MCHC 36.0 (32-36) g/dl RDW 12.1 (11.5-14.0) % Plt Count 230 (150-450) K/mm3 MPV 11.4 H (7.5-11.0) fl Gran % 69.2 H (36.0-66.0) % Eos # (Auto) 0.06 (0-0.5) Absolute Lymphs (auto) 1.47 (1.0-4.6) Absolute Monos (auto) 0.68 (0.0-1.3) Lymphocytes % 20.2 L (24.0-44.0) % Monocytes % 9.3 (0.0-12.0) % Eosinophils % 0.8 (0.00-5.0) % Basophils % 0.5 (0.0-0.4) % Absolute Granulocytes 5.04 (1.4-6.9) Basophils # 0.04 (0-0.4) ESR 16 (0-20) mm/hr Sodium 126 L (137-145) mmol/L Potassium 3.9 (3.5-5.1) mmol/L Chloride 87 L (98-107) mmol/L Carbon Dioxide 27 (22-30) mmol/L Anion Gap 16.0 H (5-15) MEQ/L BUN 19 H (7-17) mg/dL Creatinine 0.97 (0.52-1.04) mg/dL Estimated GFR 59.8 ML/MIN Glucose 107 H (74-106) mg/dL Calcium 9.5 (8.4-10.2) mg/dL Total Bilirubin 0.50 (0.2-1.3) mg/dL AST 28 (14-36) U/L ALT 17 (0-35) U/L Alkaline Phosphatase 76 (38-126) U/L Serum Total Protein 7.6 (6.3-8.2) g/dL Albumin 4.3 (3.5-5.0) g/dL Urine Color YELLOW (YELLOW) Urine Appearance CLEAR (CLEAR) Urine pH 7.0 (5-6) Ur Specific [place] 1.010 (1.005-1.025) Urine Protein NEGATIVE (Negative) Urine Ketones TRACE (NEGATIVE) Urine Blood MODERATE (0-5) Dionisio/ul Urine Nitrite NEGATIVE (NEGATIVE) Urine Bilirubin NEGATIVE (NEGATIVE) Urine Urobilinogen NEGATIVE (0-1) mg/dL Ur Leukocyte Esterase NEGATIVE (NEGATIVE) Urine WBC (Auto) NONE (0-5) /HPF Urine RBC (Auto) 6-10 (0-2) /HPF U Epithel Cells (Auto) RARE (FEW) /HPF Urine Bacteria (Auto) RARE (NEGATIVE) /HPF Urine Mucus (Auto) SLIGHT (NEGATIVE) /HPF Urine Culture Reflexed NO (NO) Urine Glucose NEGATIVE (NEGATIVE) mg/dL - Progress Progress: improved Air Movement: good Progress Note: 03/21/20 14:15 BP 141/78, headache improved Blood Culture(s) Obtained: No Antibiotics given: No Counseled pt/family regarding: lab results, diagnosis, need for follow-up, rad results - Departure Departure Disposition: Home Clinical Impression: Hypertensive urgency, malignant Head ache Qualifiers: Headache type: tension-type Headache chronicity pattern: acute headache Intractability: intractable Qualified Code(s): G44.201 - Tension-type headache, unspecified, intractable Condition: Stable Critical Care Time: Yes Critical Care Time(excluding separately billable procedures): Critical 30-74 mins Referrals: GERARDO EVERETT MD [Primary Care Provider] - Instructions: High Blood Pressure Emergencies, Headache, Adult (DC), Malignant Hypertension (DC) Additional Instructions: BILLY HARRINGTON was seen on 03/21/20 n the Emergency Room. At that time you were treated for an emergent condition, during your visit Laboratory, Radiology and/or other procedures may have been ordered. It is very important that you follow-up with your Primary Care Physician GERARDO EVERETT within the next 24- 48 hours to review your Emergency Room visit and the final results of testing that was ordered. Some test results such as Urine Cultures, Blood Cultures, and other cultures if ordered will not be finalized for 24-48 hours. If you do not have a Primary Care Provider please call the medical records department at [phone] ext [phone] to obtain a copy of your results or you may sign into our patient portal to obtain these results by visiting us @ [email or web address] and completing the following steps: 1. Click on the Patient Portal link 2. Click the Patient Self Enrollment Link to complete the enrollment form and entering your 3. Once the enrollment form is completed you will receive an email with a temporary ID and password at the email address you provided. 4. Next choose a user name and password. Your user name must be at least 4 characters long and your password must be at least 4 characters long. 5. Choose a security question from the list and provide your answer to the question. If you already have signed into the Health Portal you may access your Health Care Information 15/05 by the following steps: 1. Login to our website @ [email or web address] 2. Enter your original user name and password. FAQS The [facility] Health Portal is an online tool that contains your Lab Results, Radiology Reports, Visit History, Discharge Instructions and Health Summary Lab and Radiology Results will not be available for 72 hours on the portal. The Portal is a secure site, passwords are encryted and URLs are re-written so they cannot be copied and pasted. You and authorized family members are the only ones who can access your Portal. Also there is a timeout feature that protects your information if you leave the Portal page open. If you have technical difficulty please use the Contact Us link on the page this will allow you to submit any questions you have regarding the Portal or you may contact the Medical Record Department at [phone] ext [phone]. Discharge/Care Plan BILLY HARRINGTON was seen on 03/21/20 in the Emergency Room. The patient was counseled regarding Diagnosis,Lab results, Imaging studies, need for follow up and when to return to the Emergency Room. Prescriptions given: Discharge Note I have spoken with the patient and/or caregivers. I have explained the patient' s condition, diagnosis and treatment plan based on the information available to me at this time. I have answered the patient's and/or caregiver's questions and addressed any concerns. The patient and/or caregivers have as good understanding of the patient's diagnosis, condition and treatment plan as can be expected at this point. The vital signs have been stable. The patient's condition is stable and appropriate for discharge from the emergency department. The patient will pursue further outpatient evaluation with the primary care physician or other designated or consulting physician as outlined in the discharge instructions. The patient and/or caregivers are agreeable to this plan of care and follow-up instructions have been explained in detail. The patient and/or caregivers have received these instruction. The patient/and or caregivers are aware that any significant change in condition or worsening of symptoms should prompt an immediate return to this or the closest emergency department or call 911. Prescriptions: Amlodipine Besylate 5 mg [Norvasc 5 mg] 5 mg PO DAILY #30 tablet
[2020-03-21 13:17] LABS: Erythrocyte Sedimentation Rate 16 mm/hr (0-20)
[2020-03-21] MEDS ORDERED: Sodium Chloride 0.9% 1000 ML 1,000 ML ONE (13:43)
[2020-03-21 13:47] LABS: Appearance CLEAR (CLEAR); Bacteria RARE /HPF (NEGATIVE); Bilirubin NEGATIVE (NEGATIVE); Blood MODERATE Ery/ul (0-5); Epithelial Cells RARE /HPF (FEW); Glucose NEGATIVE (NEGATIVE); Ketones TRACE (NEGATIVE); Leukocyte Esterase NEGATIVE (NEGATIVE); Mucus SLIGHT /HPF (NEGATIVE); Nitrite NEGATIVE (NEGATIVE); Protein,Urine Dip NEGATIVE (Negative); Urobilinogen NEGATIVE mg/dL (0-1)
[2020-03-21 14:02] VITALS: BP 141/78; PULSE 74
[2020-03-21] MEDS ORDERED: NORVASC 5 MG PO ONE (14:11)
[2020-03-21 14:15] VITALS: O2SAT 99
[2020-03-21] MEDS ORDERED: NORVASC 5 MG ONE (14:34)
--- NOTE | 2020-03-21 20:46 | XRAY ---
Indication: Headache, dizziness, and weakness. High blood pressure. Multiple contiguous axial images obtained through the head without contrast. Comparison: September 24, 2019. Stable age-appropriate global atrophy, minimal periventricular degenerative micro-ischemia, and remote right caudate lacunar infarct. New tiny left basal ganglia remote lacunar infarct. Again no acute intracranial hemorrhage, abnormal extra-axial fluid collection, or mass effect. Fourth ventricle is midline without hydrocephalus. Bony calvarium intact. Visualized paranasal sinuses and mastoid air cells are clear. Impression: Continued nonacute senile brain with remote right caudate lacunar infarct. New finding remote left basal ganglial, infarct. Comment: Preliminary interpretation was made by [facility]. No critical discrepancy.
== END 2020-03-21 15:10 | disposition home or self-care (01) ==
LOC: ED 12:17
DX: I16.0 Hypertensive urgency (principal); G44.201 Tension-type headache, unspecified, intractable; R51 Headache; R42 Dizziness and giddiness; Z79.899 Other long term (current) drug therapy; I25.10 Atherosclerotic heart disease of native coronary artery without angina pectoris; E03.9 Hypothyroidism, unspecified; M06.9 Rheumatoid arthritis, unspecified; M79.7 Fibromyalgia; F41.9 Anxiety disorder, unspecified
CPT/HCPCS: 36000; 36415; 70450; 80053; 81001; 85025; 85652; 93005; 93041; 96360; 96374; 96375; 99284; 99291; J2270; J2405; A9270-GY

== ENCOUNTER 2020-04-29 13:21 | Observation (INO) | payer MEDICARE ==
[2020-04-29] MEDS ORDERED: LACTULOSE 20 GM/30ML UD CUP PO SCH (14:00)
[2020-04-29 14:06] LABS: Absolute Neutrophil Ct (ANC) 10.72 (1.4-6.9); BASOPHIL % 0.3 % (0.0-0.4); Basophil (Absolute #) 0.04 (0-0.4); Eosinophil % 0.2 % (0.00-5.0); Eosinophil (Absolute #) 0.02 (0-0.5); Hematocrit 38.8 % (35-47); Hemoglobin 13.1 gm/dl (12.0-16.0); Lymphocyte (Absolute #) 1.23 (1.0-4.6); Lymphocytes % 9.4 % (24.0-44.0); Mean Corpuscular Hemoglobin 33.1 pg (26-32); Mean Corpuscular Hgb Concent. 33.8 g/dl (32-36); Monocyte (Absolute #) 1.02 (0.0-1.3); Monocytes % 7.8 % (0.0-12.0); Neutrophil % 82.3 % (36.0-66.0); Platelet Count 306 K/mm3 (150-450); Red Blood Count 3.96 M/mm3 (4.1-5.4)
[2020-04-29 14:40] LABS: ANION GAP 12.6 MEQ/L (5-15); PREALBUMIN 29.52 mg/dL (17.6-36.0); Potassium 3.9 mmol/L (3.5-5.1)
[2020-04-29] MEDS ORDERED: [UNRECOGNIZED DRUG - OTHER] PO PRN (15:45)
[2020-04-29] MEDS ORDERED: OXYCODONE HCL PO PRN (15:45)
[2020-04-29] MEDS ORDERED: ACETAMINOPHEN PO PRN (15:45)
[2020-04-29] MEDS ORDERED: CHOLECALCIFEROL 50000 UNIT PO SCH (15:45)
[2020-04-29] MEDS ORDERED: Ventolin Hfa MDI IH PRN (15:45)
[2020-04-29] MEDS ORDERED: VENTOLIN COMMON CANISTER IH PRN (16:02)
[2020-04-29] MEDS: PERCOCET TABLET 5/325MG PO PRN (16:11)
[2020-04-29] MEDS ORDERED: MEDICATION INTERVENTION PO SCH ×2 (16:15)
[2020-04-29] MEDS: Glucophage 500 MG PO SCH (17:30)
[2020-04-29] MEDS: hydroDIURIL 25 MG PO SCH (17:31)
[2020-04-29] MEDS: DESYREL 50 MG PO SCH (20:33)
[2020-04-29] MEDS: PATIENT OWN MEDICATION BC SCH (20:34)
[2020-04-29] MEDS: Flomax 0.4 MG PO SCH (20:34)
[2020-04-29] MEDS: Coreg 6.25 MG PO SCH (20:34)
[2020-04-29] MEDS: Trileptal 300 MG Tablet PO SCH (20:34)
[2020-04-29] MEDS ORDERED: BUPRENORPHINE HCL 450 MCG BC SCH (22:00)
[2020-04-29] MEDS ORDERED: NON-FORMULARY ITEM (Hydrochlorothiazide [Hydrochlorothiazide] 12.5 MG) PO SCH (22:00)
[2020-04-29] MEDS: XANAX 1 MG PO PRN (22:45)
[2020-04-29 23:24] LABS: Appearance CLOUDY (CLEAR); Bacteria FEW /HPF (NEGATIVE); Bilirubin NEGATIVE (NEGATIVE); Blood MODERATE Ery/ul (0-5); Epithelial Cells RARE /HPF (FEW); Glucose NEGATIVE (NEGATIVE); Ketones NEGATIVE (NEGATIVE); Leukocyte Esterase MODERATE (NEGATIVE); Nitrite NEGATIVE (NEGATIVE); Protein,Urine Dip NEGATIVE (Negative); Specific Gravity 1.012 (1.005-1.025); Urobilinogen NEGATIVE mg/dL (0-1); WBC 26-50 /HPF (0-5)
[2020-04-29 23:26] LABS: Budding Yeast Rare /HPF (NEGATIVE)
[2020-04-30] MEDS: PERCOCET TABLET 5/325MG PO PRN ×2 (06:16→13:06)
[2020-04-30] MEDS: Glucophage 500 MG PO SCH ×2 (08:23→17:24)
[2020-04-30] MEDS: Trileptal 300 MG Tablet PO SCH ×2 (08:24→20:12)
[2020-04-30] MEDS: PATIENT OWN MEDICATION BC SCH ×2 (08:25→20:12)
--- NOTE | 2020-04-30 08:28 | PCM.NOTE ---
Date and Time: 04/30/20825 Subjective Assessment: patient feeling much better now, has had some relief and some bowel movements but not a large amount that was expected Objective Exam General Appearance: no apparent distress, alert Skin Exam: normal color, warm, dry Respiratory Exam: normal breath sounds, lungs clear, No respiratory distress Cardiovascular Exam: regular rate/rhythm, normal heart sounds Gastrointestinal/Abdomen Exam: soft, No tenderness, No mass OBJECTIVE DATA Vital Signs: Vital Signs - 24 hr Temp Pulse Resp BP Pulse Ox 04/30/20 07:28 97.7 F 73 18 155/69 96 04/30/20 06:41 94 L 04/30/20 03:44 98.1 F 77 18 127/58 95 04/29/20 23:45 98.4 F 80 18 142/61 97 04/29/20 19:58 98.6 F 87 20 188/78 96 04/29/20 18:35 76 18 98 04/29/20 16:20 98 04/29/20 16:00 98.1 F 83 20 145/64 98 04/29/20 13:41 98.0 F 76 22 147/65 93 L Pain Assessment - Last Documented Pain Intensity 8 Pain Scale Used 0-10 Pain Scale Intake and Output: Intake & Output 04/27/20 04/28/20 04/29/20 04/30/20 11:59 11:59 11:59 11:59 Intake Total 300 Output Total 250 Balance 50 Weight 74.8 kg Lab Results: Accuchecks Accucheck Value: 137 Accucheck Value: 118 Accucheck Value: 141 Lab Results-Last 24 Hours 04/29/20 04/29/20 04/29/20 Range/Units 13:45 13:45 13:45 WBC 13.0 H (4.0-10.5) K/mm3 RBC 3.96 L (4.1-5.4) M/mm3 Hgb 13.1 (12.0-16.0) gm/dl Hct 38.8 (35-47) % MCV 98.0 (78-100) fl MCH 33.1 H (26-32) pg MCHC 33.8 (32-36) g/dl RDW 12.0 (11.5-14.0) % Plt Count 306 (150-450) K/mm3 MPV 11.0 (7.5-11.0) fl Gran % 82.3 H (36.0-66.0) % Eos # (Auto) 0.02 (0-0.5) Absolute Lymphs (auto) 1.23 (1.0-4.6) Absolute Monos (auto) 1.02 (0.0-1.3) Lymphocytes % 9.4 L (24.0-44.0) % Monocytes % 7.8 (0.0-12.0) % Eosinophils % 0.2 (0.00-5.0) % Basophils % 0.3 (0.0-0.4) % Absolute Granulocytes 10.72 H (1.4-6.9) Basophils # 0.04 (0-0.4) Sodium 132 L (137-145) mmol/L Potassium 3.9 (3.5-5.1) mmol/L Chloride 95 L (98-107) mmol/L Carbon Dioxide 28 (22-30) mmol/L Anion Gap 12.6 (5-15) MEQ/L BUN 21 H (7-17) mg/dL Creatinine 1.00 (0.52-1.04) mg/dL Estimated GFR 57.8 ML/MIN Glucose 162 H (74-106) mg/dL Hemoglobin A1c 6.10 H (4.5-6.0) % Calcium 10.0 (8.4-10.2) mg/dL Prealbumin 29.52 (17.6-36.0) mg/dL TSH 3rd Generation (0.47-4.68) mIU/L Urine Color (YELLOW) Urine Appearance (CLEAR) Urine pH (5-6) Ur Specific [place] (1.005-1.025) Urine Protein (Negative) Urine Ketones (NEGATIVE) Urine Blood (0-5) Dionisio/ul Urine Nitrite (NEGATIVE) Urine Bilirubin (NEGATIVE) Urine Urobilinogen (0-1) mg/dL Ur Leukocyte Esterase (NEGATIVE) Urine WBC (Auto) (0-5) /HPF Urine RBC (Auto) (0-2) /HPF U Hyaline Cast (Auto) (0-2) /LPF U Epithel Cells (Auto) (FEW) /HPF Urine Bacteria (Auto) (NEGATIVE) /HPF Urine Yeast (Budding) (NEGATIVE) /HPF Urine Culture Reflexed (NO) Urine Sodium (30-90) mmol/L Urine Glucose (NEGATIVE) mg/dL 04/29/20 04/29/20 04/29/20 Range/Units 22:10 22:10 Unknown WBC (4.0-10.5) K/mm3 RBC (4.1-5.4) M/mm3 Hgb (12.0-16.0) gm/dl Hct (35-47) % MCV (78-100) fl MCH (26-32) pg MCHC (32-36) g/dl RDW (11.5-14.0) % Plt Count (150-450) K/mm3 MPV (7.5-11.0) fl Gran % (36.0-66.0) % Eos # (Auto) (0-0.5) Absolute Lymphs (auto) (1.0-4.6) Absolute Monos (auto) (0.0-1.3) Lymphocytes % (24.0-44.0) % Monocytes % (0.0-12.0) % Eosinophils % (0.00-5.0) % Basophils % (0.0-0.4) % Absolute Granulocytes (1.4-6.9) Basophils # (0-0.4) Sodium (137-145) mmol/L Potassium (3.5-5.1) mmol/L Chloride (98-107) mmol/L Carbon Dioxide (22-30) mmol/L Anion Gap (5-15) MEQ/L BUN (7-17) mg/dL Creatinine (0.52-1.04) mg/dL Estimated GFR ML/MIN Glucose (74-106) mg/dL Hemoglobin A1c (4.5-6.0) % Calcium (8.4-10.2) mg/dL Prealbumin (17.6-36.0) mg/dL TSH 3rd Generation 4.730 H (0.47-4.68) mIU/L Urine Color INGRID (YELLOW) Urine Appearance CLOUDY (CLEAR) Urine pH 8.0 (5-6) Ur Specific [place] 1.012 (1.005-1.025) Urine Protein NEGATIVE (Negative) Urine Ketones NEGATIVE (NEGATIVE) Urine Blood MODERATE (0-5) Dionisio/ul Urine Nitrite NEGATIVE (NEGATIVE) Urine Bilirubin NEGATIVE (NEGATIVE) Urine Urobilinogen NEGATIVE (0-1) mg/dL Ur Leukocyte Esterase MODERATE (NEGATIVE) Urine WBC (Auto) 26-50 (0-5) /HPF Urine RBC (Auto) 11-15 (0-2) /HPF U Hyaline Cast (Auto) 3-5 (0-2) /LPF U Epithel Cells (Auto) RARE (FEW) /HPF Urine Bacteria (Auto) FEW (NEGATIVE) /HPF Urine Yeast (Budding) Rare (NEGATIVE) /HPF Urine Culture Reflexed YES (NO) Urine Sodium 96 H (30-90) mmol/L Urine Glucose NEGATIVE (NEGATIVE) mg/dL Assessment/Plan (1) Constipation Current Visit: Yes Status: Acute Assessment & Plan: some improvement, will add another dose of lactulose Code(s): K59.00 - CONSTIPATION, UNSPECIFIED (2) Poor appetite Current Visit: Yes Status: Acute Code(s): R63.0 - ANOREXIA (3) Abdominal pain Current Visit: Yes Status: Acute Code(s): R10.9 - UNSPECIFIED ABDOMINAL PAIN
[2020-04-30] MEDS ORDERED: LACTULOSE 20 GM/30ML UD CUP PO ONE (08:30)
[2020-04-30] MEDS ORDERED: VALACYCLOVIR HCL 500 MG PO SCH (10:00)
[2020-04-30] MEDS: Coreg 6.25 MG PO SCH ×2 (11:36→20:12)
[2020-04-30] MEDS: PLAVIX 75 MG Tablet PO SCH (11:36)
[2020-04-30] MEDS: NORVASC 5 MG PO SCH (11:37)
[2020-04-30] MEDS: hydroDIURIL 25 MG PO SCH ×2 (11:37→17:24)
[2020-04-30] MEDS: ECOTRIN 81 MG PO SCH (11:37)
[2020-04-30] MEDS: CLARITIN 10 MG PO SCH (11:38)
[2020-04-30] MEDS: SYNTHROID 125 MCG PO SCH (11:38)
[2020-04-30] MEDS: Zestril 10 MG PO SCH (11:38)
[2020-04-30] MEDS: ROCEPHIN 1 Gm-D5w 50 ml Bag** 1 G/50 ML IVPB IV SCH (15:49)
[2020-04-30] MEDS: XANAX 1 MG PO PRN (15:58)
[2020-04-30] MEDS: Flomax 0.4 MG PO SCH (20:12)
[2020-04-30] MEDS: DESYREL 50 MG PO SCH (20:12)
[2020-04-30] MEDS ORDERED: Tums EX 750 MG PO SCH (20:30)
[2020-05-01] MEDS: XANAX 1 MG PO PRN (00:05)
[2020-05-01 04:24] VITALS: PULSE 74
[2020-05-01 05:16] LABS: Absolute Neutrophil Ct (ANC) 5.27 (1.4-6.9); BASOPHIL % 0.4 % (0.0-0.4); Basophil (Absolute #) 0.04 (0-0.4); Eosinophil % 3.6 % (0.00-5.0); Eosinophil (Absolute #) 0.33 (0-0.5); Hematocrit 36.9 % (35-47); Hemoglobin 12.1 gm/dl (12.0-16.0); Lymphocyte (Absolute #) 2.64 (1.0-4.6); Lymphocytes % 28.4 % (24.0-44.0); Mean Cell Volume 101.7 fl (78-100); Mean Corpuscular Hemoglobin 33.3 pg (26-32); Mean Corpuscular Hgb Concent. 32.8 g/dl (32-36); Mean Platelet Volume 11.4 fl (7.5-11.0); Monocyte (Absolute #) 1.01 (0.0-1.3); Monocytes % 10.9 % (0.0-12.0); Neutrophil % 56.7 % (36.0-66.0); Platelet Count 249 K/mm3 (150-450); Red Blood Count 3.63 M/mm3 (4.1-5.4); Red Cell Distribution Width 12.3 % (11.5-14.0); White Blood Count 9.3 K/mm3 (4.0-10.5)
[2020-05-01 05:38] LABS: ALBUMIN 3.3 g/dL (3.5-5.0); ANION GAP 11.7 MEQ/L (5-15); BILIRUBIN,TOTAL 0.2 mg/dL (0.2-1.3); Creatinine 1 1.46 mg/dL (0.52-1.04); Potassium 3.9 mmol/L (3.5-5.1); Total Protein 6.2 g/dL (6.3-8.2)
[2020-05-01 07:27] VITALS: BP 143/64; O2SAT 96
--- NOTE | 2020-05-01 07:57 | PCM.DS ---
Discharge Summary Date of Admission: 04/29/20 13:29 Admitting Physician: GERARDO EVERETT Primary Care Provider: GERARDO EVERETT Allergies Allergies iodine Allergy (Severe, Verified 03/21/20 12:36) Rash adhesive tape Allergy (Intermediate, Verified 03/21/20 12:36) Rash amoxicillin Adverse Reaction (Intermediate, Verified 03/21/20 12:36) Nausea and Vomiting Hospital Summary - Hospital Course Hospital Course: patient was admitted with severe constipation, has longstanding problems with constipation and takes a multitude of otc products including stool softeners, dulcolax suppositories and mag citrate. she is on chronic opioid therapy for pain. patient had a large bowel movement after receiving lactulose and soap suds enema and feels much better - Vitals & Intake/Output Vital Signs: Vital Signs Temperature 97.7 F 05/01/20 07:26 Pulse Rate 74 05/01/20 07:26 Respiratory Rate 18 05/01/20 07:26 Blood Pressure 143/64 05/01/20 07:26 O2 Sat by Pulse Oximetry 96 05/01/20 07:26 Intake & Output: Intake & Output 04/28/20 04/29/20 04/30/20 05/01/20 11:59 11:59 11:59 11:59 Intake Total 300 1340 Output Total 250 Balance 50 1340 Weight 74.8 kg 73.7 kg - Lab Result Diagrams: 05/01/20 04:30 05/01/20 04:30 Lab Results-Last 24 Hrs: Accuchecks Accucheck Value: 117 Accucheck Value: 204 Accucheck Value: 134 Lab Results-Last 24 Hours 04/29/20 05/01/20 05/01/20 Range/Units 13:45 04:30 04:30 WBC 9.3 (4.0-10.5) K/mm3 RBC 3.63 L (4.1-5.4) M/mm3 Hgb 12.1 (12.0-16.0) gm/dl Hct 36.9 (35-47) % MCV 101.7 H (78-100) fl MCH 33.3 H (26-32) pg MCHC 32.8 (32-36) g/dl RDW 12.3 (11.5-14.0) % Plt Count 249 (150-450) K/mm3 MPV 11.4 H (7.5-11.0) fl Gran % 56.7 (36.0-66.0) % Eos # (Auto) 0.33 (0-0.5) Absolute Lymphs (auto) 2.64 (1.0-4.6) Absolute Monos (auto) 1.01 (0.0-1.3) Lymphocytes % 28.4 (24.0-44.0) % Monocytes % 10.9 (0.0-12.0) % Eosinophils % 3.6 (0.00-5.0) % Basophils % 0.4 (0.0-0.4) % Absolute Granulocytes 5.27 (1.4-6.9) Basophils # 0.04 (0-0.4) Sodium 134 L (137-145) mmol/L Potassium 3.9 (3.5-5.1) mmol/L Chloride 94 L (98-107) mmol/L Carbon Dioxide 32 H (22-30) mmol/L Anion Gap 11.7 (5-15) MEQ/L BUN 29 H (7-17) mg/dL Creatinine 1.46 H (0.52-1.04) mg/dL Estimated GFR 37.3 ML/MIN Glucose 127 H (74-106) mg/dL Calcium 10.0 (8.4-10.2) mg/dL Total Bilirubin 0.20 (0.2-1.3) mg/dL AST 26 (14-36) U/L ALT 19 (0-35) U/L Alkaline Phosphatase 71 (38-126) U/L Serum Total Protein 6.2 L (6.3-8.2) g/dL Albumin 3.3 L (3.5-5.0) g/dL Total Cortisol 17.2 (4.0-25.0) mcg/dL Ref Test Specimen Type Pending Micro Results-Entire Visit: Accuchecks Accucheck Value: 117 Accucheck Value: 204 Accucheck Value: 134 - Procedures and Test Procedures and Tests throughout Hospitalization: Therapy Orders & Screens 04/29/20 16:17 Respiratory Therapy Assessment DAILY Comment: Diagnosis: CONSTIPATION,HYPONATREMIA Discharge Exam General Appearance: no apparent distress, alert Respiratory Exam: normal breath sounds, lungs clear, No respiratory distress Cardiovascular Exam: regular rate/rhythm, normal heart sounds Gastrointestinal/Abdomen Exam: soft, No tenderness, No mass Final Diagnosis/Problem List - Final Discharge Diagnosis/Problem (1) Constipation Current Visit: Yes Status: Acute Code(s): K59.00 - CONSTIPATION, UNSPECIFIED (2) Poor appetite Current Visit: Yes Status: Acute Code(s): R63.0 - ANOREXIA (3) Abdominal pain Current Visit: Yes Status: Acute Code(s): R10.9 - UNSPECIFIED ABDOMINAL PAIN (4) Therapeutic opioid-induced constipation (OIC) Current Visit: Yes Status: Acute Assessment & Plan: patient has failed routine drugs, discussed trial of relistor and pt agrees Code(s): K59.03 - DRUG INDUCED CONSTIPATION; T40.2X5A - ADVERSE EFFECT OF OTHER OPIOIDS, INITIAL ENCOUNTER - Discharge Disposition: Home, Self-Care Condition: Stable Prescriptions: New Methylnaltrexone Clubb [Relistor] 3 tab PO DAILY #90 tablet Continue Metformin HCl 500 mg [Glucophage 500 MG] 500 mg PO BID Lisinopril 10 mg PO DAILY Alprazolam 0.5 mg [xanAX 0.5 MG] 1 mg PO TID PRN PRN Reason: Anxiety Levothyroxine Sodium 125 mcg PO DAILY Dicyclomine HCl 20 mg [Bentyl 20 mg] 20 mg PO QID Buprenorphine HCl [Belbuca] 450 mcg BC BID Aspirin EC 81 mg [Ecotrin 81 mg] 81 mg PO DAILY Oxcarbazepine 300 mg [Trileptal 300 MG Tablet] 300 mg PO BID Carvedilol 6.25 mg [Coreg 6.25 MG] 6.25 mg PO BID #60 tablet Amlodipine Besylate 5 mg [Norvasc 5 mg] 5 mg PO DAILY #30 tablet Loratadine 10 mg [Claritin 10 mg] 10 mg PO DAILY Albuterol Sulfate [Albuterol Sulfate Hfa] 2 puffs IH Q4H PRN PRN Reason: Shortness Of Breath/Wheezing Clopidogrel Bisulfate [Clopidogrel] 75 mg PO DAILY Cholecalciferol (Vitamin D3) [Vitamin D3] 50,000 units PO WEEKLY Tamsulosin HCl 0.4 mg PO QHS Meclizine HCl 12.5 mg PO TID PRN PRN Reason: Dizziness Valacyclovir HCl [Valacyclovir] 500 mg PO DAILY Oxycodone HCl/Acetaminophen [Oxycodon-Acetaminophen 7.5-325] 7.5 mg PO TID PRN PRN Reason: Pain Trazodone HCl 50 mg [Desyrel 50 mg] 100 mg PO DAILY Discontinued hydroCHLOROthiazide [Hydrochlorothiazide] 12.5 mg PO BID Follow up with: GERARDO EVERETT MD [Primary Care Provider] - 1 Week
[2020-05-01] MEDS: Trileptal 300 MG Tablet PO SCH (08:12)
[2020-05-01] MEDS: PATIENT OWN MEDICATION BC SCH (08:13)
[2020-05-01] MEDS: Glucophage 500 MG PO SCH (08:41)
[2020-05-01] MEDS: ROCEPHIN 1 Gm-D5w 50 ml Bag** 1 G/50 ML IVPB IV SCH (09:22)
[2020-05-01] MEDS: NORVASC 5 MG PO SCH (09:49)
[2020-05-01] MEDS: hydroDIURIL 25 MG PO SCH (09:49)
[2020-05-01] MEDS: CLARITIN 10 MG PO SCH (09:49)
[2020-05-01] MEDS: SYNTHROID 125 MCG PO SCH (09:49)
[2020-05-01] MEDS: Coreg 6.25 MG PO SCH (09:49)
[2020-05-01] MEDS: PLAVIX 75 MG Tablet PO SCH (09:49)
[2020-05-01] MEDS: Zestril 10 MG PO SCH (09:49)
[2020-05-01] MEDS: ECOTRIN 81 MG PO SCH (09:49)
[2020-05-06 05:01] LABS: TYPE OF TEST RANDOM
== END 2020-05-01 09:52 | disposition home or self-care (01) ==
LOC: MED SURG 13:29
PROVIDERS: ADMIT Family Medicine; ATTEND Family Medicine
DX: K59.00 Constipation, unspecified (principal); K59.03 Drug induced constipation; T40.2X5A Adverse effect of other opioids, initial encounter; R63.0 Anorexia; R10.9 Unspecified abdominal pain; E87.1 Hypo-osmolality and hyponatremia; E11.9 Type 2 diabetes mellitus without complications; Z79.891 Long term (current) use of opiate analgesic; Z79.899 Other long term (current) drug therapy
CPT/HCPCS: 36415; 80048; 80053; 81001; 82533; 82962; 83036; 83935; 84134; 84300; 84443; 85025; 87077; 87086; 87186; 94760; G0378; J0696; A9270-GY

== ENCOUNTER 2021-11-02 10:41 | Observation (INO) | payer MEDICARE ==
[2021-11-02] MEDS ORDERED: Sodium Chloride 0.9% 1000 ML 1,000 ML IV STA (11:20)
[2021-11-02 11:43] LABS: Appearance CLEAR (CLEAR); Bilirubin NEGATIVE (NEGATIVE); Blood NEGATIVE Ery/ul (0-5); Epithelial Cells RARE /HPF (FEW); Glucose NEGATIVE (NEGATIVE); Ketones NEGATIVE (NEGATIVE); Leukocyte Esterase NEGATIVE (NEGATIVE); Nitrite NEGATIVE (NEGATIVE); Protein,Urine Dip NEGATIVE (Negative); Specific Gravity 1.013 (1.005-1.025); Urobilinogen NEGATIVE mg/dL (0-1); WBC 0-2 /HPF (0-5)
[2021-11-02 11:44] LABS: Bacteria FEW /HPF (NEGATIVE); RBC 0-2 /HPF (0-2)
--- NOTE | 2021-11-02 11:46 | XRAY ---
Indication: Confusion and weakness. Multiple contiguous axial images obtained through the head without contrast. Comparison: March 21, 2020. Again age-appropriate global atrophy and minimal periventricular degenerative micro-ischemia. Right periventricular white matter demonstrates new 8 mm remote appearing infarct. No acute internal hemorrhage, abnormal extra-axial fluid collection, or mass effect. Fourth ventricle is midline without hydrocephalus. Bony calvarium intact. Visualized paranasal sinuses and mastoid air cells are clear. Impression: New subcentimeter remote appearing infarct right periventricular white matter. Atrophy and degenerative micro-ischemia within normal limits for patient's age. No acute intracranial abnormalities.
--- NOTE | 2021-11-02 11:52 | XRAY ---
Indication: Confusion and weakness. Comparison: January 01, 2020. Portable apical lordotic chest hyperinflated and clear. Heart is not enlarged. Bony thorax intact again with mild osteopenia, degenerative changes, and surgical clips base of neck. Impression: Nonacute hyperinflated chest with chronic features.
[2021-11-02 12:02] LABS: Absolute Neutrophil Ct (ANC) 5.62 (1.4-6.9); Basophil (Absolute #) 0.03 (0-0.4); Eosinophil % 1.7 % (0.00-5.0); Eosinophil (Absolute #) 0.14 (0-0.5); Hematocrit 41.5 % (35-47); Hemoglobin 13.1 gm/dl (12.0-16.0); Lymphocyte (Absolute #) 1.69 (1.0-4.6); Lymphocytes % 20.7 % (24.0-44.0); Mean Cell Volume 100.2 fl (78-100); Mean Corpuscular Hemoglobin 31.6 pg (26-32); Mean Corpuscular Hgb Concent. 31.6 g/dl (32-36); Mean Platelet Volume 12.7 fl (7.5-11.0); Monocyte (Absolute #) 0.68 (0.0-1.3); Monocytes % 8.3 % (0.0-12.0); Neutrophil % 68.9 % (36.0-66.0); Platelet Count 190 K/mm3 (150-450); Red Blood Count 4.14 M/mm3 (4.1-5.4); White Blood Count 8.2 K/mm3 (4.0-10.5)
[2021-11-02] MEDS ORDERED: Sodium Chloride 0.9% 1000 ML 1,000 ML ONE ×2 (12:03→14:38)
[2021-11-02 12:05] LABS: Amphetamine,Urine NEGATIVE (NEGATIVE); Barbiturate,Urine NEGATIVE (NEGATIVE); Benzodiazepine,Urine POSITIVE (NEGATIVE); Cocaine,Urine NEGATIVE (NEGATIVE); Methadone,Urine NEGATIVE (NEGATIVE); Opiate,Urine NEGATIVE (NEGATIVE); PCP,Urine NEGATIVE (NEGATIVE); THC,Urine NEGATIVE (NEGATIVE)
[2021-11-02 12:11] LABS: BILIRUBIN,TOTAL 0.5 mg/dL (0.2-1.3); Calcium 9.9 mg/dL (8.4-10.2); Creatinine 1 1.58 mg/dL (0.52-1.04); Potassium 4.4 mmol/L (3.5-5.1); Total Protein 6.9 g/dL (6.3-8.2)
[2021-11-02 12:13] LABS: INR 0.89 (0.8-3.0); PROTIME 10.5 SECONDS (9.4-12.5)
[2021-11-02 12:16] LABS: PTT 34.6 SECONDS (25.1-36.5)
--- NOTE | 2021-11-02 13:09 | ERPHSYRPT ---
- History of Present Illness Time Seen by Provider: 11/02/21 11:05 Source: patient Exam Limitations: no limitations Patient Subjective Stated Complaint: Pt states that she has had problems with her legs being weak for the past couple of years but for the past week she has had episodes of her knees giving out and not holding her and she is also reports having left hip pain for the past year Triage Nursing Assessment: Pt brought to the ER by her , almaz rowley, denies pain at this time, needs assistance to stand and ambulate due to the fear of knees giving out, pulses normal, skin n/w/d, denies injuries, doesn't appear to be in any distress Physician History: Patient is a 76-year-old female who presents with a complaint of weakness in the legs. She has had a problem with weakness in her legs for approximately 2 years but the last 2 weeks she has required assistance when walking because her legs are giving out. She also complains of chronic left hip pain for over a year. The is concerned about perhaps some medical overmedication because she does go to a pain center and he says she has episodes where she zones out and seems to be inattentive for a while. She was seen at [facility] on September 18 and had a complete work-up for similar complaints which was negative. Timing/Duration: week(s) (2) Severity: moderate Character of Deficits: new weakness Deficits: falling, decrease ability to walk Baseline/Normal Cognition: alert oriented x 3 Current Cognition: alert oriented x 3 Baseline Gait: walks only w/assistance Associated Symptoms: weakness, trouble walking Allergies/Adverse Reactions: iodine Allergy (Severe, Verified 11/02/21 11:11) Rash adhesive tape Allergy (Intermediate, Verified 11/02/21 11:11) Rash amoxicillin Adverse Reaction (Intermediate, Verified 11/02/21 11:11) Nausea and Vomiting Home Medications: ALPRAZolam 0.5 MG [xanAX 0.5 MG] 1 mg PO TID PRN 03/30/12 [History] Lisinopril 10 mg PO DAILY 03/30/12 [History] Metformin HCl 500 mg [Glucophage 500 MG] 500 mg PO BID 03/30/12 [History] Levothyroxine Sodium 125 mcg PO DAILY 03/31/12 [History] Buprenorphine HCl [Belbuca] 450 mcg BC BID 05/21/19 [History] Dicyclomine HCl 20 mg [Bentyl 20 mg] 20 mg PO QID 05/21/19 [History] Aspirin EC 81 mg [Ecotrin 81 mg] 81 mg PO DAILY 12/04/19 [History] Oxcarbazepine 300 mg [Trileptal 300 MG Tablet] 300 mg PO BID 12/16/19 [History] Albuterol Sulfate [Albuterol Sulfate Hfa] 2 puffs IH Q4H PRN 04/29/20 [History] Cholecalciferol (Vitamin D3) [Vitamin D3] 50,000 units PO WEEKLY 04/29/20 [His tory] Clopidogrel Bisulfate [Clopidogrel] 75 mg PO DAILY 04/29/20 [History] Loratadine 10 mg [Claritin 10 mg] 10 mg PO DAILY 04/29/20 [History] Meclizine HCl 12.5 mg PO TID PRN 04/29/20 [History] Oxycodone HCl/Acetaminophen [Oxycodone-Acetaminophn 7.5-325] 7.5 mg PO TID PRN 04/29/20 [History] Tamsulosin HCl 0.4 mg PO QHS 04/29/20 [History] Trazodone HCl 50 mg [Desyrel 50 mg] 100 mg PO DAILY 04/29/20 [History] Valacyclovir HCl [Valacyclovir] 500 mg PO DAILY 04/29/20 [History] Hx Tetanus, Diphtheria Vaccination/Date Given: Yes Hx Influenza Vaccination/Date Given: Yes Hx Pneumococcal Vaccination/Date Given: Yes Travel Risk - International Travel Have you traveled outside of the country in past 3 weeks: No - Coronavirus Screening Are you exhibiting any of the following symptoms?: No Close contact with a COVID-19 positive Pt in past 14-21 Days: No - Vaccine Status Have you recieved a Covid-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: 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: [employer] - Review of Systems Constitutional: Weakness, No Fever, No Chills Eyes: No Symptoms Ears, Nose, & Throat: No Symptoms Respiratory: No Cough, No Dyspnea Cardiac: No Chest Pain, No Edema, No Syncope Abdominal/Gastrointestinal: No Abdominal Pain, No Nausea, No Vomiting, No Diarrhea Genitourinary Symptoms: No Dysuria Musculoskeletal: No Back Pain, No Neck Pain Skin: No Rash Neurological: No Dizziness, No Focal Weakness, No Sensory Changes Psychological: No Symptoms Endocrine: No Symptoms All Other Systems: Reviewed and Negative - Past Medical History Pertinent Past Medical History: Yes Neurological History: No Pertinent History ENT History: Other Cardiac History: Coronary Artery Disease, Hypertension Respiratory History: No Pertinent History Endocrine Medical History: Diabetes Type II, Hypothyroidism Musculoskeletal History: Arthritis, Rheumatoid Arthritis, Fibromyalgia GI Medical History: No Pertinent History History: No Pertinent History Psycho-Social History: Anxiety Female Reproductive Disorders: Other Other Medical History: 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 foot surgery bunion and ankle,elbow-lt ,left side face skin growth, colonoscopy, - Social History Smoking Status: Never smoker Exposure to second hand smoke: No Drug Use: none Patient Lives Alone: No - Female History Hx Now: No - Nursing Vital Signs Nursing Vital Signs: Initial Vital Signs Temperature 97.6 F 11/02/21 10:56 Pulse Rate 65 11/02/21 10:56 Respiratory Rate 19 11/02/21 10:56 Blood Pressure 141/74 11/02/21 10:56 O2 Sat by Pulse Oximetry 97 11/02/21 10:56 Pain Scale Pain Intensity 4 - [place] Coma Scale Best Eye Response ([place]): (4) open spontaneously Best Verbal Response ([place]): (5) oriented Best Motor Response ([place]): (6) obeys commands [place] Total: 15 - Physical Exam General Appearance: no apparent distress, alert Eye Exam: bilateral eye: PERRL, EOMI Ears, Nose, Throat Exam: normal ENT inspection, moist mucous membranes Neck Exam: normal inspection, non-tender, supple Respiratory: normal breath sounds, lungs clear, airway intact, No respiratory distress Cardiovascular: regular rate/rhythm, No edema Gastrointestinal: soft, No tenderness, No distention Back Exam: normal inspection Extremity Exam: normal inspection, No pedal edema Mental Status: alert, oriented 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: tongue midline Coordination/Gait: normal finger to nose, normal gait Skin Exam: normal color, warm, dry, No rash SpO2: 96 Ordered Tests: Active Orders 24 hr Category Date Time Status EKG-ER Only STAT Care 11/02/21 11:18 Active IV Insertion STAT Care 11/02/21 11:18 Active NPO (ED) STAT Care 11/02/21 11:18 Active CHEST 1 VIEW (PORTABLE) Stat Exams 11/02/21 11:19 Completed HEAD WITHOUT CONTRAST [CT] Stat Exams 11/02/21 11:19 Completed CBC W DIFF Stat Lab 11/02/21 11:45 Completed CMP Stat Lab 11/02/21 11:45 Completed ETHYL ALCOHOL Stat Lab 11/02/21 11:45 Completed Lactic Acid Stat Lab 11/02/21 11:20 Completed PROTIME WITH INR Stat Lab 11/02/21 11:45 Completed PTT Stat Lab 11/02/21 11:45 Completed TROPONIN Q3H Lab 11/02/21 11:45 Completed TROPONIN Q3H Lab 11/02/21 14:30 Ordered TROPONIN Q3H Lab 11/02/21 17:30 Ordered TROPONIN Q3H Lab 11/02/21 20:30 Ordered TROPONIN Q3H Lab 11/02/21 23:30 Ordered UA W/RFX UR CULTURE Stat Lab 11/02/21 11:25 Completed Urine Triage Profile Stat Lab 11/02/21 11:25 Completed Medication Summary Discontinued Medications Generic Name Dose Route Start Last Admin Trade Name Freq PRN Reason Stop Dose Admin Sodium Chloride 1,000 mls @ 999 mls/hr 11/02/21 11:20 11/02/21 13:05 Sodium Chloride 0.9% 1000 Ml IV 11/02/21 12:20 Infused .Q1H1M STA Infusion Sodium Chloride Confirm 11/02/21 12:03 Sodium Chloride 0.9% 1000 Ml Administered 11/02/21 12:04 Dose 1,000 mls @ ud .ROUTE .K-MED ONE Lab/Rad Data: Laboratory Result Diagrams 11/02/21 11:45 11/02/21 11:45 Laboratory Results 11/02/21 11/02/21 11/02/21 Range/Units 11:45 11:45 11:45 WBC (4.0-10.5) K/mm3 RBC (4.1-5.4) M/mm3 Hgb (12.0-16.0) gm/dl Hct (35-47) % MCV (78-100) fl MCH (26-32) pg MCHC (32-36) g/dl RDW (11.5-14.0) % Plt Count (150-450) K/mm3 MPV (7.5-11.0) fl Gran % (36.0-66.0) % Eos # (Auto) (0-0.5) Absolute Lymphs (auto) (1.0-4.6) Absolute Monos (auto) (0.0-1.3) Lymphocytes % (24.0-44.0) % Monocytes % (0.0-12.0) % Eosinophils % (0.00-5.0) % Basophils % (0.0-0.4) % Absolute Granulocytes (1.4-6.9) Basophils # (0-0.4) PT 10.5 (9.4-12.5) SECONDS INR 0.89 (0.8-3.0) APTT 34.6 (25.1-36.5) SECONDS Sodium 133 L (137-145) mmol/L Potassium 4.4 (3.5-5.1) mmol/L Chloride 98 (98-107) mmol/L Carbon Dioxide 29 (22-30) mmol/L Anion Gap 11.0 (5-15) MEQ/L BUN 37 H (7-17) mg/dL Creatinine 1.58 H (0.52-1.04) mg/dL Estimated GFR 34.0 ML/MIN Glucose 127 H (74-106) mg/dL Lactic Acid (0.4-2.0) Calcium 9.9 (8.4-10.2) mg/dL Total Bilirubin 0.50 (0.2-1.3) mg/dL AST 18 (14-36) U/L ALT 13 (0-35) U/L Alkaline Phosphatase 66 (38-126) U/L Troponin I < 0.012 (0.000-0.034) ng/mL Serum Total Protein 6.9 (6.3-8.2) g/dL Albumin 4.0 (3.5-5.0) g/dL Urine Color (YELLOW) Urine Appearance (CLEAR) Urine pH (5-6) Ur Specific [place] (1.005-1.025) Urine Protein (Negative) Urine Ketones (NEGATIVE) Urine Blood (0-5) Dionisio/ul Urine Nitrite (NEGATIVE) Urine Bilirubin (NEGATIVE) Urine Urobilinogen (0-1) mg/dL Ur Leukocyte Esterase (NEGATIVE) Urine WBC (Auto) (0-5) /HPF Urine RBC (Auto) (0-2) /HPF U Epithel Cells (Auto) (FEW) /HPF Urine Bacteria (Auto) (NEGATIVE) /HPF Urine Culture Reflexed (NO) Urine Glucose (NEGATIVE) mg/dL Urine Opiates Level (NEGATIVE) Ur Methadone (NEGATIVE) Urine Barbiturates (NEGATIVE) Ur Phencyclidine (PCP) (NEGATIVE) Urine Amphetamine (NEGATIVE) U Benzodiazepine Level (NEGATIVE) Urine Cocaine (NEGATIVE) Urine Marijuana (THC) (NEGATIVE) Ethyl Alcohol (0-10) mg/dL 11/02/21 11/02/21 11/02/21 Range/Units 11:45 11:45 11:25 WBC 8.2 (4.0-10.5) K/mm3 RBC 4.14 (4.1-5.4) M/mm3 Hgb 13.1 (12.0-16.0) gm/dl Hct 41.5 (35-47) % MCV 100.2 H (78-100) fl MCH 31.6 (26-32) pg MCHC 31.6 L (32-36) g/dl RDW 13.0 (11.5-14.0) % Plt Count 190 (150-450) K/mm3 MPV 12.7 H (7.5-11.0) fl Gran % 68.9 H (36.0-66.0) % Eos # (Auto) 0.14 (0-0.5) Absolute Lymphs (auto) 1.69 (1.0-4.6) Absolute Monos (auto) 0.68 (0.0-1.3) Lymphocytes % 20.7 L (24.0-44.0) % Monocytes % 8.3 (0.0-12.0) % Eosinophils % 1.7 (0.00-5.0) % Basophils % 0.4 (0.0-0.4) % Absolute Granulocytes 5.62 (1.4-6.9) Basophils # 0.03 (0-0.4) PT (9.4-12.5) SECONDS INR (0.8-3.0) APTT (25.1-36.5) SECONDS Sodium (137-145) mmol/L Potassium (3.5-5.1) mmol/L Chloride (98-107) mmol/L Carbon Dioxide (22-30) mmol/L Anion Gap (5-15) MEQ/L BUN (7-17) mg/dL Creatinine (0.52-1.04) mg/dL Estimated GFR ML/MIN Glucose (74-106) mg/dL Lactic Acid (0.4-2.0) Calcium (8.4-10.2) mg/dL Total Bilirubin (0.2-1.3) mg/dL AST (14-36) U/L ALT (0-35) U/L Alkaline Phosphatase (38-126) U/L Troponin I (0.000-0.034) ng/mL Serum Total Protein (6.3-8.2) g/dL Albumin (3.5-5.0) g/dL Urine Color (YELLOW) Urine Appearance (CLEAR) Urine pH (5-6) Ur Specific [place] (1.005-1.025) Urine Protein (Negative) Urine Ketones (NEGATIVE) Urine Blood (0-5) Dionisio/ul Urine Nitrite (NEGATIVE) Urine Bilirubin (NEGATIVE) Urine Urobilinogen (0-1) mg/dL Ur Leukocyte Esterase (NEGATIVE) Urine WBC (Auto) (0-5) /HPF Urine RBC (Auto) (0-2) /HPF U Epithel Cells (Auto) (FEW) /HPF Urine Bacteria (Auto) (NEGATIVE) /HPF Urine Culture Reflexed (NO) Urine Glucose (NEGATIVE) mg/dL Urine Opiates Level NEGATIVE (NEGATIVE) Ur Methadone NEGATIVE (NEGATIVE) Urine Barbiturates NEGATIVE (NEGATIVE) Ur Phencyclidine (PCP) NEGATIVE (NEGATIVE) Urine Amphetamine NEGATIVE (NEGATIVE) U Benzodiazepine Level POSITIVE (NEGATIVE) Urine Cocaine NEGATIVE (NEGATIVE) Urine Marijuana (THC) NEGATIVE (NEGATIVE) Ethyl Alcohol < 10 (0-10) mg/dL 11/02/21 11/02/21 Range/Units 11:25 11:20 WBC (4.0-10.5) K/mm3 RBC (4.1-5.4) M/mm3 Hgb (12.0-16.0) gm/dl Hct (35-47) % MCV (78-100) fl MCH (26-32) pg MCHC (32-36) g/dl RDW (11.5-14.0) % Plt Count (150-450) K/mm3 MPV (7.5-11.0) fl Gran % (36.0-66.0) % Eos # (Auto) (0-0.5) Absolute Lymphs (auto) (1.0-4.6) Absolute Monos (auto) (0.0-1.3) Lymphocytes % (24.0-44.0) % Monocytes % (0.0-12.0) % Eosinophils % (0.00-5.0) % Basophils % (0.0-0.4) % Absolute Granulocytes (1.4-6.9) Basophils # (0-0.4) PT (9.4-12.5) SECONDS INR (0.8-3.0) APTT (25.1-36.5) SECONDS Sodium (137-145) mmol/L Potassium (3.5-5.1) mmol/L Chloride (98-107) mmol/L Carbon Dioxide (22-30) mmol/L Anion Gap (5-15) MEQ/L BUN (7-17) mg/dL Creatinine (0.52-1.04) mg/dL Estimated GFR ML/MIN Glucose (74-106) mg/dL Lactic Acid 1.2 (0.4-2.0) Calcium (8.4-10.2) mg/dL Total Bilirubin (0.2-1.3) mg/dL AST (14-36) U/L ALT (0-35) U/L Alkaline Phosphatase (38-126) U/L Troponin I (0.000-0.034) ng/mL Serum Total Protein (6.3-8.2) g/dL Albumin (3.5-5.0) g/dL Urine Color YELLOW (YELLOW) Urine Appearance CLEAR (CLEAR) Urine pH 6.0 (5-6) Ur Specific [place] 1.013 (1.005-1.025) Urine Protein NEGATIVE (Negative) Urine Ketones NEGATIVE (NEGATIVE) Urine Blood NEGATIVE (0-5) Dionisio/ul Urine Nitrite NEGATIVE (NEGATIVE) Urine Bilirubin NEGATIVE (NEGATIVE) Urine Urobilinogen NEGATIVE (0-1) mg/dL Ur Leukocyte Esterase NEGATIVE (NEGATIVE) Urine WBC (Auto) 0-2 (0-5) /HPF Urine RBC (Auto) 0-2 (0-2) /HPF U Epithel Cells (Auto) RARE (FEW) /HPF Urine Bacteria (Auto) FEW (NEGATIVE) /HPF Urine Culture Reflexed NO (NO) Urine Glucose NEGATIVE (NEGATIVE) mg/dL Urine Opiates Level (NEGATIVE) Ur Methadone (NEGATIVE) Urine Barbiturates (NEGATIVE) Ur Phencyclidine (PCP) (NEGATIVE) Urine Amphetamine (NEGATIVE) U Benzodiazepine Level (NEGATIVE) Urine Cocaine (NEGATIVE) Urine Marijuana (THC) (NEGATIVE) Ethyl Alcohol (0-10) mg/dL - Progress Progress: unchanged Progress Note: 11/02/21 13:54 Discussed the case with Dr. Lange who is on-call for Dr. Everett today patient will be placed in observation and will receive work-up for carotid Dopplers EEG MRI etc. Discussed with : Rizwana Will see patient in: hospital (observation) - Departure Departure Disposition: Observation Clinical Impression: Weakness, CVA (cerebral vascular accident) Condition: Stable Critical Care Time: No Referrals: GERARDO EVERETT MD [Primary Care Provider] - Follow up/PCP as directed
[2021-11-02] MEDS ORDERED: Sodium Chloride 0.9% 1000 ML 1,000 ML IV SCH (14:00)
[2021-11-02 14:56] LABS: INFLUENZA A NEGATIVE (NEGATIVE); INFLUENZA B NEGATIVE (NEGATIVE); RESPIRATORY SYNCTIAL VIRUS NEGATIVE (Negative); SARS-CoV-2 Xpert Express NEGATIVE (NEGATIVE)
--- NOTE | 2021-11-02 15:25 | XRAY ---
Indication: CVA. Two-dimensional sonogram and color Doppler imaging of the carotid arteries of the neck performed. Comparison: February 28, 2021. Examination of the right carotid circulation demonstrate widely patent common carotid artery. Carotid bulb demonstrates worsening mild/moderate heterogeneous plaquing more than before slightly extending to the origin of the internal and external carotid arteries. PSV in the CCA is 57 cm/s. PSV of the ICA is 236 cm/s. ICA/CCA ratio is 4.1. Normal antegrade vertebral artery flow. Examination of the left carotid circulation again demonstrates widely patent common carotid artery. Carotid bulb now demonstrates moderate calcified plaquing extending into the origin of the external and lesser degree internal carotid arteries. PSV of the CCA is 59 cm/s. PSV of the ICA is 129 cm/s. ICA/CCA ratio is 2.2. Normal antegrade vertebral artery flow. Impression: Worsening moderate bilateral carotid arteriosclerotic plaquing as detailed. Velocity measurements and ratios favor 50-69% stenosis bilaterally.
[2021-11-02] MEDS ORDERED: COREG 12.5 MG PO SCH (16:15)
[2021-11-02] MEDS ORDERED: XANAX 1 MG PO SCH (16:17)
--- NOTE | 2021-11-02 16:22 | XRAY ---
Indication: Confusion and weakness. Sagittal, coronal, and axial MRI brain performed without contrast using T1, T2, FLAIR, diffusion, and ADC sequences. Comparison: None Age-appropriate global atrophy and mild periventricular degenerative micro-ischemia signal bilaterally. No acute intracranial hemorrhage, abnormal extra-axial fluid collection, or mass effect. Diffusion images are negative for restricted signal. Fourth ventricle is midline without hydrocephalus. 7/8 cranial nerve complex bilaterally symmetric. Normal flow void signal within the major intracerebral circulation. Normal appearing craniocervical junction and sella turcica. Paranasal sinuses are clear. Fluid signal in both mastoid air cells presumed inflammatory. Impression: 1. Normal aging brain including atrophy and degenerative micro-ischemia. 2. No acute intracranial abnormalities or evidence for evolving large vessel territorial stroke. 3. Fluid signal in both mastoid air cells presumed inflammatory.
[2021-11-02] MEDS ORDERED: APRESOLINE 20 MG/ML INJ IV PRN (17:15)
[2021-11-02] MEDS ORDERED: NON-FORMULARY ITEM (Meclizine Hcl [Meclizine Hcl] 12.5 MG Tablet) PO PRN (17:16)
[2021-11-02] MEDS ORDERED: NON-FORMULARY ITEM (Oxycodone Hcl/Acetaminophen [Oxycodone-Acetaminophn 7.5-325] 1 EACH Ta PO PRN (17:16)
[2021-11-02] MEDS ORDERED: MEDICATION INTERVENTION MC SCH ×2 (17:30→17:45)
[2021-11-02] MEDS ORDERED: XANAX 1 MG PO PRN (17:30)
[2021-11-02] MEDS ORDERED: HUMALOG SQ PRN (17:46)
[2021-11-02] MEDS: CLARITIN 10 MG PO SCH (17:58)
[2021-11-02] MEDS ORDERED: DESYREL 50 MG PO SCH (18:00)
[2021-11-02] MEDS: PERCOCET TABLET 5/325MG PO PRN (21:39)
[2021-11-02] MEDS: DESYREL 50 MG PO SCH (21:41)
[2021-11-02] MEDS: ANTIVERT 25 MG PO PRN (21:41)
[2021-11-02] MEDS: BENTYL 20 MG PO SCH (21:42)
[2021-11-02] MEDS: Coreg 6.25 MG PO SCH (21:42)
[2021-11-02] MEDS: hydroDIURIL 25 MG PO SCH (21:43)
[2021-11-02] MEDS: Trileptal 300 MG Tablet PO SCH (21:44)
[2021-11-02] MEDS ORDERED: BUPRENORPHINE HCL 75 MCG BC SCH (22:00)
[2021-11-02] MEDS ORDERED: Apresoline 25 MG TABLET PO SCH (22:00)
[2021-11-03] MEDS: PERCOCET TABLET 5/325MG PO PRN ×2 (07:45→20:01)
[2021-11-03] MEDS: SYNTHROID 125 MCG PO SCH (09:13)
[2021-11-03] MEDS: ECOTRIN 81 MG PO SCH (09:14)
[2021-11-03] MEDS: CLARITIN 10 MG PO SCH (09:15)
[2021-11-03] MEDS: Coreg 6.25 MG PO SCH ×2 (09:15→22:14)
[2021-11-03] MEDS: BENTYL 20 MG PO SCH ×4 (09:15→22:13)
[2021-11-03] MEDS: Zestril 10 MG PO SCH (09:15)
[2021-11-03] MEDS: hydroDIURIL 25 MG PO SCH ×2 (09:16→22:14)
[2021-11-03] MEDS: PLAVIX 75 MG Tablet PO SCH (09:17)
[2021-11-03] MEDS: Trileptal 300 MG Tablet PO SCH ×2 (09:21→22:14)
--- NOTE | 2021-11-03 09:43 | PCM.HP ---
History of Present Illness - Chief Complaint Chief Complaint: Weakness History of Present Illness: is a 76 year old female who presented to the ER with weakness and altered mental status, her reports episodes of confusion and noncommunicative, she will be extremely tired and not talk intermittently then it will resolve spontaneously, she also complains of weakness in both of her legs symmetrically and difficulty standing to walk at times. She has no slurred speech, she has no numbness or tingling in the hands and feet other than her chronic peripheral neuropathy pain and numbness in both of her feet. There have been no witnessed tonic-clinic generalized seizure activity but she does have periods of poor communication and weakness. - Review of Systems Constitutional: No Fever, No Chills Respiratory: No Cough, No Short Of Breath Cardiac: No Chest Pain, No Edema, No Syncope Abdominal/Gastrointestinal: No Abdominal Pain, No Nausea, No Vomiting, No Diar shabbir Musculoskeletal: Back Pain, No Fall Neurological: Gait Changes, No Focal Weakness, No Speech Changes All Other Systems: Reviewed and Negative Medications & Allergies Home Medications: Home Medication List ALPRAZolam 0.5 MG [xanAX 0.5 MG] 1 mg PO TID PRN 03/30/12 [History Confirmed 11/02/21] Lisinopril 10 mg PO DAILY 03/30/12 [History Confirmed 11/02/21] Metformin HCl 500 mg [Glucophage 500 MG] 500 mg PO BID 03/30/12 [History Confirmed 11/02/21] Levothyroxine Sodium 125 mcg PO DAILY 03/31/12 [History Confirmed 11/02/21] Buprenorphine HCl [Belbuca] 450 mcg BC BID 05/21/19 [History Confirmed 11/02/21] Dicyclomine HCl 20 mg [Bentyl 20 mg] 20 mg PO QID 05/21/19 [History Confirmed 11/02/21] Aspirin EC 81 mg [Ecotrin 81 mg] 81 mg PO DAILY 12/04/19 [History Confirmed 11/02/21] Oxcarbazepine 300 mg [Trileptal 300 MG Tablet] 300 mg PO BID 12/16/19 [History Confirmed 11/02/21] Carvedilol 6.25 mg [Coreg 6.25 MG] 6.25 mg PO BID #60 tablet 12/18/19 [Rx Confirmed 11/02/21] Cholecalciferol (Vitamin D3) [Vitamin D3] 50,000 units PO WEEKLY 04/29/20 [History Confirmed 11/02/21] Clopidogrel Bisulfate [Clopidogrel] 75 mg PO DAILY 04/29/20 [History Confirmed 11/02/21] Loratadine 10 mg [Claritin 10 mg] 10 mg PO DAILY 04/29/20 [History Con firmed 11/02/21] Meclizine HCl 12.5 mg PO TID PRN 04/29/20 [History Confirmed 11/02/21] Oxycodone HCl/Acetaminophen [Oxycodone-Acetaminophn 7.5-325] 7.5 mg PO TID PRN 04/29/20 [History Confirmed 11/02/21] Trazodone HCl 50 mg [Desyrel 50 mg] 100 mg PO DAILY 04/29/20 [History Confirmed 11/02/21] Methylnaltrexone [place] [Relistor] 3 tab PO DAILY #90 tablet 05/01/20 [Rx Confirmed 11/02/21] Allergies/Adverse Reactions: Allergies Allergy/AdvReac Type Severity Reaction Status Date / Time iodine Allergy Severe Rash Verified 11/02/21 11:11 adhesive tape Allergy Intermediate Rash Verified 11/02/21 11:11 amoxicillin AdvReac Intermediate Nausea and Verified 11/02/21 11:11 Vomiting - Past Medical History Past Medical History: Yes Neurological History: No Pertinent History ENT History: Other Cardiac History: Coronary Artery Disease, Hypertension Respiratory History: No Pertinent History Endocrine Medical History: Diabetes Type II, Hypothyroidism Musculoskelatal History: Arthritis, Rheumatoid Arthritis, Fibromyalgia GI Medical History: No Pertinent History History: No Pertinent History Pyscho-Social History: Anxiety Reproductive Disorders: Other Comment: Lower eyelid surgery to remove cancer, BURNING/RAW IN VAGINAL AREA - Female History Are you now?: No - Past Surgical History Past Surgical History: Yes Neuro Surgical History: No Pertinent History Cardiac History: No Pertinent History Respiratory Surgery: No Pertinent History GI Surgical History: Hernia Repair Genitourinary Surgical Hx: No Pertinent History Musculskeletal Surgical Hx: Orthopedic Surgery Female Surgical History: Hysterectomy Other Surgical History: Lower eyelid syurgery to remove cancer. foot surgery bunion and ankle,elbow-lt ,left side face skin growth, colonoscopy, - Social History Smoking Status: Never smoker Exposure to second hand smoke: No Alcohol: None Drug Use: none - Physical Exam Vital Signs: Vital Signs - 24 hr Temp Pulse Resp BP Pulse Ox 11/03/21 08:00 97.7 F 62 18 152/65 96 11/03/21 04:00 97.9 F 68 17 180/81 96 11/02/21 23:48 97.7 F 66 16 171/74 96 11/02/21 19:20 97.7 F 64 18 167/68 99 11/02/21 16:57 97.3 F 64 16 182/75 99 11/02/21 15:50 194/87 11/02/21 14:00 64 16 99 11/02/21 13:57 97.3 F 68 20 98 11/02/21 13:55 96 11/02/21 13:07 65 18 99 11/02/21 12:00 68 16 182/75 96 11/02/21 10:56 97.6 F 65 19 141/74 97 General Appearance: no apparent distress Neurologic Exam: alert, oriented x 3, cooperative, surveillance dual rate officer II-XII nml as tested, mo tor weakness (diffuse, global), No motor deficits (diffuse weakness in upper and lower extremities, symmetrical), No disoriented, No confusion, No facial droop, No slurred speech, No dysarthria Eye Exam: PERRL/EOMI, eyes nml inspection Neck Exam: No carotid bruit Respiratory Exam: normal breath sounds, lungs clear, No respiratory distress Cardiovascular Exam: regular rate/rhythm, normal heart sounds, normal peripheral pulses Gastrointestinal/Abdomen Exam: soft, normal bowel sounds, No tenderness, No mass Back Exam: normal inspection, normal range of motion, No CVA tenderness, No vertebral tenderness Extremity Exam: normal inspection, normal range of motion, pelvis stable Skin Exam: normal color, warm, dry, No rash Results - Labs Lab/Micro Results: Lab Results-Last 24 Hours 11/02/21 11/02/21 11/02/21 Range/Units 11:20 11:25 11:25 WBC (4.0-10.5) K/mm3 RBC (4.1-5.4) M/mm3 Hgb (12.0-16.0) gm/dl Hct (35-47) % MCV (78-100) fl MCH (26-32) pg MCHC (32-36) g/dl RDW (11.5-14.0) % Plt Count (150-450) K/mm3 MPV (7.5-11.0) fl Gran % (36.0-66.0) % Eos # (Auto) (0-0.5) Absolute Lymphs (auto) (1.0-4.6) Absolute Monos (auto) (0.0-1.3) Lymphocytes % (24.0-44.0) % Monocytes % (0.0-12.0) % Eosinophils % (0.00-5.0) % Basophils % (0.0-0.4) % Absolute Granulocytes (1.4-6.9) Basophils # (0-0.4) PT (9.4-12.5) SECONDS INR (0.8-3.0) APTT (25.1-36.5) SECONDS Sodium (137-145) mmol/L Potassium (3.5-5.1) mmol/L Chloride (98-107) mmol/L Carbon Dioxide (22-30) mmol/L Anion Gap (5-15) MEQ/L BUN (7-17) mg/dL Creatinine (0.52-1.04) mg/dL Estimated GFR ML/MIN Glucose (74-106) mg/dL POC Glucometer (74 to 106) mg/dL Lactic Acid 1.2 (0.4-2.0) Calcium (8.4-10.2) mg/dL Total Bilirubin (0.2-1.3) mg/dL AST (14-36) U/L ALT (0-35) U/L Alkaline Phosphatase (38-126) U/L Troponin I (0.000-0.034) ng/mL Serum Total Protein (6.3-8.2) g/dL Albumin (3.5-5.0) g/dL Urine Color YELLOW (YELLOW) Urine Appearance CLEAR (CLEAR) Urine pH 6.0 (5-6) Ur Specific [place] 1.013 (1.005-1.025) Urine Protein NEGATIVE (Negative) Urine Ketones NEGATIVE (NEGATIVE) Urine Blood NEGATIVE (0-5) Dionisio/ul Urine Nitrite NEGATIVE (NEGATIVE) Urine Bilirubin NEGATIVE (NEGATIVE) Urine Urobilinogen NEGATIVE (0-1) mg/dL Ur Leukocyte Esterase NEGATIVE (NEGATIVE) Urine WBC (Auto) 0-2 (0-5) /HPF Urine RBC (Auto) 0-2 (0-2) /HPF U Epithel Cells (Auto) RARE (FEW) /HPF Urine Bacteria (Auto) FEW (NEGATIVE) /HPF Urine Culture Reflexed NO (NO) Urine Glucose NEGATIVE (NEGATIVE) mg/dL Urine Opiates Level NEGATIVE (NEGATIVE) Ur Methadone NEGATIVE (NEGATIVE) Urine Barbiturates NEGATIVE (NEGATIVE) Ur Phencyclidine (PCP) NEGATIVE (NEGATIVE) Urine Amphetamine NEGATIVE (NEGATIVE) U Benzodiazepine Level POSITIVE (NEGATIVE) Urine Cocaine NEGATIVE (NEGATIVE) Urine Marijuana (THC) NEGATIVE (NEGATIVE) Ethyl Alcohol (0-10) mg/dL Influenza Type A Ag (NEGATIVE) Influenza Type B Ag (NEGATIVE) RSV (PCR) (Negative) SARS-CoV-2 (PCR) (NEGATIVE) 11/02/21 11/02/21 11/02/21 Range/Units 11:45 11:45 11:45 WBC 8.2 (4.0-10.5) K/mm3 RBC 4.14 (4.1-5.4) M/mm3 Hgb 13.1 (12.0-16.0) gm/dl Hct 41.5 (35-47) % MCV 100.2 H (78-100) fl MCH 31.6 (26-32) pg MCHC 31.6 L (32-36) g/dl RDW 13.0 (11.5-14.0) % Plt Count 190 (150-450) K/mm3 MPV 12.7 H (7.5-11.0) fl Gran % 68.9 H (36.0-66.0) % Eos # (Auto) 0.14 (0-0.5) Absolute Lymphs (auto) 1.69 (1.0-4.6) Absolute Monos (auto) 0.68 (0.0-1.3) Lymphocytes % 20.7 L (24.0-44.0) % Monocytes % 8.3 (0.0-12.0) % Eosinophils % 1.7 (0.00-5.0) % Basophils % 0.4 (0.0-0.4) % Absolute Granulocytes 5.62 (1.4-6.9) Basophils # 0.03 (0-0.4) PT 10.5 (9.4-12.5) SECONDS INR 0.89 (0.8-3.0) APTT 34.6 (25.1-36.5) SECONDS Sodium (137-145) mmol/L Potassium (3.5-5.1) mmol/L Chloride (98-107) mmol/L Carbon Dioxide (22-30) mmol/L Anion Gap (5-15) MEQ/L BUN (7-17) mg/dL Creatinine (0.52-1.04) mg/dL Estimated GFR ML/MIN Glucose (74-106) mg/dL POC Glucometer (74 to 106) mg/dL Lactic Acid (0.4-2.0) Calcium (8.4-10.2) mg/dL Total Bilirubin (0.2-1.3) mg/dL AST (14-36) U/L ALT (0-35) U/L Alkaline Phosphatase (38-126) U/L Troponin I (0.000-0.034) ng/mL Serum Total Protein (6.3-8.2) g/dL Albumin (3.5-5.0) g/dL Urine Color (YELLOW) Urine Appearance (CLEAR) Urine pH (5-6) Ur Specific [place] (1.005-1.025) Urine Protein (Negative) Urine Ketones (NEGATIVE) Urine Blood (0-5) Dionisio/ul Urine Nitrite (NEGATIVE) Urine Bilirubin (NEGATIVE) Urine Urobilinogen (0-1) mg/dL Ur Leukocyte Esterase (NEGATIVE) Urine WBC (Auto) (0-5) /HPF Urine RBC (Auto) (0-2) /HPF U Epithel Cells (Auto) (FEW) /HPF Urine Bacteria (Auto) (NEGATIVE) /HPF Urine Culture Reflexed (NO) Urine Glucose (NEGATIVE) mg/dL Urine Opiates Level (NEGATIVE) Ur Methadone (NEGATIVE) Urine Barbiturates (NEGATIVE) Ur Phencyclidine (PCP) (NEGATIVE) Urine Amphetamine (NEGATIVE) U Benzodiazepine Level (NEGATIVE) Urine Cocaine (NEGATIVE) Urine Marijuana (THC) (NEGATIVE) Ethyl Alcohol < 10 (0-10) mg/dL Influenza Type A Ag (NEGATIVE) Influenza Type B Ag (NEGATIVE) RSV (PCR) (Negative) SARS-CoV-2 (PCR) (NEGATIVE) 11/02/21 11/02/21 11/02/21 Range/Units 11:45 11:45 14:16 WBC (4.0-10.5) K/mm3 RBC (4.1-5.4) M/mm3 Hgb (12.0-16.0) gm/dl Hct (35-47) % MCV (78-100) fl MCH (26-32) pg MCHC (32-36) g/dl RDW (11.5-14.0) % Plt Count (150-450) K/mm3 MPV (7.5-11.0) fl Gran % (36.0-66.0) % Eos # (Auto) (0-0.5) Absolute Lymphs (auto) (1.0-4.6) Absolute Monos (auto) (0.0-1.3) Lymphocytes % (24.0-44.0) % Monocytes % (0.0-12.0) % Eosinophils % (0.00-5.0) % Basophils % (0.0-0.4) % Absolute Granulocytes (1.4-6.9) Basophils # (0-0.4) PT (9.4-12.5) SECONDS INR (0.8-3.0) APTT (25.1-36.5) SECONDS Sodium 133 L (137-145) mmol/L Potassium 4.4 (3.5-5.1) mmol/L Chloride 98 (98-107) mmol/L Carbon Dioxide 29 (22-30) mmol/L Anion Gap 11.0 (5-15) MEQ/L BUN 37 H (7-17) mg/dL Creatinine 1.58 H (0.52-1.04) mg/dL Estimated GFR 34.0 ML/MIN Glucose 127 H (74-106) mg/dL POC Glucometer (74 to 106) mg/dL Lactic Acid (0.4-2.0) Calcium 9.9 (8.4-10.2) mg/dL Total Bilirubin 0.50 (0.2-1.3) mg/dL AST 18 (14-36) U/L ALT 13 (0-35) U/L Alkaline Phosphatase 66 (38-126) U/L Troponin I < 0.012 (0.000-0.034) ng/mL Serum Total Protein 6.9 (6.3-8.2) g/dL Albumin 4.0 (3.5-5.0) g/dL Urine Color (YELLOW) Urine Appearance (CLEAR) Urine pH (5-6) Ur Specific [place] (1.005-1.025) Urine Protein (Negative) Urine Ketones (NEGATIVE) Urine Blood (0-5) Dionisio/ul Urine Nitrite (NEGATIVE) Urine Bilirubin (NEGATIVE) Urine Urobilinogen (0-1) mg/dL Ur Leukocyte Esterase (NEGATIVE) Urine WBC (Auto) (0-5) /HPF Urine RBC (Auto) (0-2) /HPF U Epithel Cells (Auto) (FEW) /HPF Urine Bacteria (Auto) (NEGATIVE) /HPF Urine Culture Reflexed (NO) Urine Glucose (NEGATIVE) mg/dL Urine Opiates Level (NEGATIVE) Ur Methadone (NEGATIVE) Urine Barbiturates (NEGATIVE) Ur Phencyclidine (PCP) (NEGATIVE) Urine Amphetamine (NEGATIVE) U Benzodiazepine Level (NEGATIVE) Urine Cocaine (NEGATIVE) Urine Marijuana (THC) (NEGATIVE) Ethyl Alcohol (0-10) mg/dL Influenza Type A Ag NEGATIVE (NEGATIVE) Influenza Type B Ag NEGATIVE (NEGATIVE) RSV (PCR) NEGATIVE (Negative) SARS-CoV-2 (PCR) NEGATIVE (NEGATIVE) 11/02/21 11/02/21 11/02/21 Range/Units 14:47 17:55 22:08 WBC (4.0-10.5) K/mm3 RBC (4.1-5.4) M/mm3 Hgb (12.0-16.0) gm/dl Hct (35-47) % MCV (78-100) fl MCH (26-32) pg MCHC (32-36) g/dl RDW (11.5-14.0) % Plt Count (150-450) K/mm3 MPV (7.5-11.0) fl Gran % (36.0-66.0) % Eos # (Auto) (0-0.5) Absolute Lymphs (auto) (1.0-4.6) Absolute Monos (auto) (0.0-1.3) Lymphocytes % (24.0-44.0) % Monocytes % (0.0-12.0) % Eosinophils % (0.00-5.0) % Basophils % (0.0-0.4) % Absolute Granulocytes (1.4-6.9) Basophils # (0-0.4) PT (9.4-12.5) SECONDS INR (0.8-3.0) APTT (25.1-36.5) SECONDS Sodium (137-145) mmol/L Potassium (3.5-5.1) mmol/L Chloride (98-107) mmol/L Carbon Dioxide (22-30) mmol/L Anion Gap (5-15) MEQ/L BUN (7-17) mg/dL Creatinine (0.52-1.04) mg/dL Estimated GFR ML/MIN Glucose (74-106) mg/dL POC Glucometer 119 H (74 to 106) mg/dL Lactic Acid (0.4-2.0) Calcium (8.4-10.2) mg/dL Total Bilirubin (0.2-1.3) mg/dL AST (14-36) U/L ALT (0-35) U/L Alkaline Phosphatase (38-126) U/L Troponin I < 0.012 < 0.012 (0.000-0.034) ng/mL Serum Total Protein (6.3-8.2) g/dL Albumin (3.5-5.0) g/dL Urine Color (YELLOW) Urine Appearance (CLEAR) Urine pH (5-6) Ur Specific [place] (1.005-1.025) Urine Protein (Negative) Urine Ketones (NEGATIVE) Urine Blood (0-5) Dionisio/ul Urine Nitrite (NEGATIVE) Urine Bilirubin (NEGATIVE) Urine Urobilinogen (0-1) mg/dL Ur Leukocyte Esterase (NEGATIVE) Urine WBC (Auto) (0-5) /HPF Urine RBC (Auto) (0-2) /HPF U Epithel Cells (Auto) (FEW) /HPF Urine Bacteria (Auto) (NEGATIVE) /HPF Urine Culture Reflexed (NO) Urine Glucose (NEGATIVE) mg/dL Urine Opiates Level (NEGATIVE) Ur Methadone (NEGATIVE) Urine Barbiturates (NEGATIVE) Ur Phencyclidine (PCP) (NEGATIVE) Urine Amphetamine (NEGATIVE) U Benzodiazepine Level (NEGATIVE) Urine Cocaine (NEGATIVE) Urine Marijuana (THC) (NEGATIVE) Ethyl Alcohol (0-10) mg/dL Influenza Type A Ag (NEGATIVE) Influenza Type B Ag (NEGATIVE) RSV (PCR) (Negative) SARS-CoV-2 (PCR) (NEGATIVE) 11/03/21 Range/Units 07:38 WBC (4.0-10.5) K/mm3 RBC (4.1-5.4) M/mm3 Hgb (12.0-16.0) gm/dl Hct (35-47) % MCV (78-100) fl MCH (26-32) pg MCHC (32-36) g/dl RDW (11.5-14.0) % Plt Count (150-450) K/mm3 MPV (7.5-11.0) fl Gran % (36.0-66.0) % Eos # (Auto) (0-0.5) Absolute Lymphs (auto) (1.0-4.6) Absolute Monos (auto) (0.0-1.3) Lymphocytes % (24.0-44.0) % Monocytes % (0.0-12.0) % Eosinophils % (0.00-5.0) % Basophils % (0.0-0.4) % Absolute Granulocytes (1.4-6.9) Basophils # (0-0.4) PT (9.4-12.5) SECONDS INR (0.8-3.0) APTT (25.1-36.5) SECONDS Sodium (137-145) mmol/L Potassium (3.5-5.1) mmol/L Chloride (98-107) mmol/L Carbon Dioxide (22-30) mmol/L Anion Gap (5-15) MEQ/L BUN (7-17) mg/dL Creatinine (0.52-1.04) mg/dL Estimated GFR ML/MIN Glucose (74-106) mg/dL POC Glucometer 107 H (74 to 106) mg/dL Lactic Acid (0.4-2.0) Calcium (8.4-10.2) mg/dL Total Bilirubin (0.2-1.3) mg/dL AST (14-36) U/L ALT (0-35) U/L Alkaline Phosphatase (38-126) U/L Troponin I (0.000-0.034) ng/mL Serum Total Protein (6.3-8.2) g/dL Albumin (3.5-5.0) g/dL Urine Color (YELLOW) Urine Appearance (CLEAR) Urine pH (5-6) Ur Specific [place] (1.005-1.025) Urine Protein (Negative) Urine Ketones (NEGATIVE) Urine Blood (0-5) Dionisio/ul Urine Nitrite (NEGATIVE) Urine Bilirubin (NEGATIVE) Urine Urobilinogen (0-1) mg/dL Ur Leukocyte Esterase (NEGATIVE) Urine WBC (Auto) (0-5) /HPF Urine RBC (Auto) (0-2) /HPF U Epithel Cells (Auto) (FEW) /HPF Urine Bacteria (Auto) (NEGATIVE) /HPF Urine Culture Reflexed (NO) Urine Glucose (NEGATIVE) mg/dL Urine Opiates Level (NEGATIVE) Ur Methadone (NEGATIVE) Urine Barbiturates (NEGATIVE) Ur Phencyclidine (PCP) (NEGATIVE) Urine Amphetamine (NEGATIVE) U Benzodiazepine Level (NEGATIVE) Urine Cocaine (NEGATIVE) Urine Marijuana (THC) (NEGATIVE) Ethyl Alcohol (0-10) mg/dL Influenza Type A Ag (NEGATIVE) Influenza Type B Ag (NEGATIVE) RSV (PCR) (Negative) SARS-CoV-2 (PCR) (NEGATIVE) Accuchecks Date 11/03/21 Date 11/02/21 Time 07:38 Time 22:11 - Radiology Impressions Radiology Exams & Impressions: Radiology Procedures Category Date Time Status CAROTID BILATERAL [US] Stat Exams 11/02/21 Completed CHEST 1 VIEW (PORTABLE) Stat Exams 11/02/21 11:19 Completed HEAD WITHOUT CONTRAST [CT] Stat Exams 11/02/21 11:19 Completed MRI BRAIN W/O CONTRAST [MRI] Stat Exams 11/02/21 14:00 Completed Assessment/Plan (1) Altered mental status Current Visit: Yes Status: Acute Assessment & Plan: no obvious etiology, patient does have some moderate carotid disease bilaterally but nothing on MRI brain to suggest a hemorrhagic or ischemic etiology. EEG ordered, will obtain neurology consult and check echo. differential is wide but would include absence/partial seizure, cardiac or other neurologic cause. will check thyroid function, b12 and RPR Code(s): R41.82 - ALTERED MENTAL STATUS, UNSPECIFIED (2) Weakness Current Visit: Yes Status: Acute Assessment & Plan: consult PT, most likely has a component of deconditioning as well with her c hronic pain Code(s): R53.1 - WEAKNESS (3) Chronic pain syndrome Current Visit: Yes Status: Acute Assessment & Plan: chronic opioid use might have a contributing role Code(s): G89.4 - CHRONIC PAIN SYNDROME (4) Diabetes mellitus Current Visit: No Status: Chronic Qualifiers: Code(s): E11.9 - TYPE 2 DIABETES MELLITUS WITHOUT COMPLICATIONS (5) Hypertension Current Visit: No Status: Chronic Code(s): I10 - ESSENTIAL (PRIMARY) HYPERTENSION
[2021-11-03] MEDS ORDERED: METHYLNALTREXONE BROMIDE 150 MG PO SCH (10:00)
[2021-11-03] MEDS ORDERED: SYNTHROID 25 MCG PO SCH (10:00)
[2021-11-03] MEDS: DESYREL 50 MG PO SCH (22:12)
[2021-11-03] MEDS: ANTIVERT 25 MG PO PRN (22:12)
[2021-11-04 04:00] VITALS: BP 173/93; O2SAT 97
[2021-11-04 05:55] LABS: Absolute Neutrophil Ct (ANC) 4.34 (1.4-6.9); Basophil (Absolute #) 0.05 (0-0.4); Eosinophil % 2.7 % (0.00-5.0); Hematocrit 40.4 % (35-47); Hemoglobin 13.8 gm/dl (12.0-16.0); Lymphocytes % 27.4 % (24.0-44.0); Mean Cell Volume 97.3 fl (78-100); Mean Corpuscular Hemoglobin 33.3 pg (26-32); Mean Corpuscular Hgb Concent. 34.2 g/dl (32-36); Mean Platelet Volume 12.4 fl (7.5-11.0); Monocyte (Absolute #) 0.71 (0.0-1.3); Monocytes % 9.7 % (0.0-12.0); Neutrophil % 59.5 % (36.0-66.0); Platelet Count 191 K/mm3 (150-450); Red Blood Count 4.15 M/mm3 (4.1-5.4); White Blood Count 7.3 K/mm3 (4.0-10.5)
[2021-11-04 07:25] VITALS: PULSE 64
--- NOTE | 2021-11-04 07:43 | ECHO ---
Transthoracic echocardiographic examination and color Doppler was done on 11/03/2021. INDICATION: Syncope. IMPRESSION: 1) NO REGIONAL WALL MOTION ABNORMALITY. ESTIMATED GLOBAL LEFT VENTRICULAR EJECTION FRACTION OF AROUND 60 TO 65%. 2) MILD MITRAL REGURGITATION. 3) TRACE TRICUSPID REGURGITATION. RIGHT VENTRICULAR SYSTOLIC PRESSURE OF 37 MM OF MERCURY. 4) TRACE PULMONIC INSUFFICIENCY. 5) LEFT ATRIAL ENLARGEMENT. 6) LEFT VENTRICULAR HYPERTROPHY. The left ventricle is visualized and demonstrated adequate motion of all the segments. Estimated global left ventricular ejection fraction around 60 to 65%. There is concentric left ventricular hypertrophy. The mitral valve is seen and this opens adequately. There is mitral regurgitation. Left atrium is enlarged. The aortic valve is trileaflet and opens adequately. There is no significant gradient across the left ventricular outflow tract. The right side chambers are normal. There is trace tricuspid regurgitation. The right ventricular systolic pressure of 37 mm of Mercury. There is also trace pulmonic insufficiency.
[2021-11-04 07:53] LABS: ANION GAP 10.1 MEQ/L (5-15); Calcium 9.9 mg/dL (8.4-10.2); Creatinine 1 1.22 mg/dL (0.52-1.04); EST GLOMERULAR FILTRATION RATE 45.8 ML/MIN; Potassium 3.3 mmol/L (3.5-5.1)
[2021-11-04] MEDS: ECOTRIN 81 MG PO SCH (09:02)
[2021-11-04] MEDS: PERCOCET TABLET 5/325MG PO PRN (09:02)
[2021-11-04] MEDS: PLAVIX 75 MG Tablet PO SCH (09:02)
[2021-11-04] MEDS: SYNTHROID 125 MCG PO SCH (09:02)
[2021-11-04] MEDS: hydroDIURIL 25 MG PO SCH (09:05)
[2021-11-04] MEDS: Coreg 6.25 MG PO SCH (09:05)
[2021-11-04] MEDS: ANTIVERT 25 MG PO PRN (09:05)
[2021-11-04] MEDS: CLARITIN 10 MG PO SCH (09:05)
[2021-11-04] MEDS: BENTYL 20 MG PO SCH (09:06)
[2021-11-04] MEDS: Zestril 10 MG PO SCH (09:06)
[2021-11-04] MEDS: Trileptal 300 MG Tablet PO SCH (09:06)
--- NOTE | 2021-11-04 09:36 | PCM.DS ---
Discharge Summary Date of Admission: 11/02/21 15:47 Admitting Physician: CORNELIO CHENG Consults: Consults on Case 11/03/21 09:36 Consult Neurology ROUTINE Primary Care Provider: GERARDO EVERETT ROBBIN Allergies Allergies iodine Allergy (Severe, Verified 11/02/21 11:11) Rash adhesive tape Allergy (Intermediate, Verified 11/02/21 11:11) Rash amoxicillin Adverse Reaction (Intermediate, Verified 11/02/21 11:11) Nausea and Vomiting Hospital Summary - Hospital Course Hospital Course: patient was admitted with episodic weakness and confusion, MRI was negative of the brain, metabolic workup was negative and she had a normal EEG. Teleneurologist and I both suspect polypharmacy as the cause of her mental status changes and patient is agreeable to weaning dosages of meds and working with her pain management Dr Corado on an outpatient basis. - Vitals & Intake/Output Vital Signs: Vital Signs Temperature 97.8 F 11/04/21 03:00 Pulse Rate 64 11/04/21 07:00 Respiratory Rate 18 11/04/21 07:00 Blood Pressure 173/93 11/04/21 03:00 O2 Sat by Pulse Oximetry 97 11/04/21 03:00 Intake & Output: Intake & Output 11/01/21 11/02/21 11/03/21 11/04/21 11:59 11:59 11:59 11:59 Intake Total 960 240 Output Total 2500 1900 Balance -1540 -1660 Weight 77.111 kg 78.1 kg - Lab Result Diagrams: 11/04/21 05:20 11/04/21 05:20 Lab Results-Last 24 Hrs: Lab Results-Last 24 Hours 11/03/21 11/03/21 11/03/21 Range/Units 10:55 10:55 10:55 WBC (4.0-10.5) K/mm3 RBC (4.1-5.4) M/mm3 Hgb (12.0-16.0) gm/dl Hct (35-47) % MCV (78-100) fl MCH (26-32) pg MCHC (32-36) g/dl RDW (11.5-14.0) % Plt Count (150-450) K/mm3 MPV (7.5-11.0) fl Gran % (36.0-66.0) % Eos # (Auto) (0-0.5) Absolute Lymphs (auto) (1.0-4.6) Absolute Monos (auto) (0.0-1.3) Lymphocytes % (24.0-44.0) % Monocytes % (0.0-12.0) % Eosinophils % (0.00-5.0) % Basophils % (0.0-0.4) % Absolute Granulocytes (1.4-6.9) Basophils # (0-0.4) Sodium (137-145) mmol/L Potassium (3.5-5.1) mmol/L Chloride (98-107) mmol/L Carbon Dioxide (22-30) mmol/L Anion Gap (5-15) MEQ/L BUN (7-17) mg/dL Creatinine (0.52-1.04) mg/dL Estimated GFR ML/MIN Glucose (74-106) mg/dL POC Glucometer (74 to 106) mg/dL Hemoglobin A1c 6.12 H (4.5-6.0) % Calcium (8.4-10.2) mg/dL Vitamin B12 574 (239-931) pg/mL TSH 3rd Generation 3.280 (0.47-4.68) mIU/L 11/03/21 11/03/21 11/03/21 Range/Units 11:56 16:16 20:37 WBC (4.0-10.5) K/mm3 RBC (4.1-5.4) M/mm3 Hgb (12.0-16.0) gm/dl Hct (35-47) % MCV (78-100) fl MCH (26-32) pg MCHC (32-36) g/dl RDW (11.5-14.0) % Plt Count (150-450) K/mm3 MPV (7.5-11.0) fl Gran % (36.0-66.0) % Eos # (Auto) (0-0.5) Absolute Lymphs (auto) (1.0-4.6) Absolute Monos (auto) (0.0-1.3) Lymphocytes % (24.0-44.0) % Monocytes % (0.0-12.0) % Eosinophils % (0.00-5.0) % Basophils % (0.0-0.4) % Absolute Granulocytes (1.4-6.9) Basophils # (0-0.4) Sodium (137-145) mmol/L Potassium (3.5-5.1) mmol/L Chloride (98-107) mmol/L Carbon Dioxide (22-30) mmol/L Anion Gap (5-15) MEQ/L BUN (7-17) mg/dL Creatinine (0.52-1.04) mg/dL Estimated GFR ML/MIN Glucose (74-106) mg/dL POC Glucometer 141 H 118 H 107 H (74 to 106) mg/dL Hemoglobin A1c (4.5-6.0) % Calcium (8.4-10.2) mg/dL Vitamin B12 (239-931) pg/mL TSH 3rd Generation (0.47-4.68) mIU/L 11/04/21 11/04/21 11/04/21 Range/Units 05:20 05:20 07:37 WBC 7.3 (4.0-10.5) K/mm3 RBC 4.15 (4.1-5.4) M/mm3 Hgb 13.8 (12.0-16.0) gm/dl Hct 40.4 (35-47) % MCV 97.3 (78-100) fl MCH 33.3 H (26-32) pg MCHC 34.2 (32-36) g/dl RDW 13.0 (11.5-14.0) % Plt Count 191 (150-450) K/mm3 MPV 12.4 H (7.5-11.0) fl Gran % 59.5 (36.0-66.0) % Eos # (Auto) 0.20 (0-0.5) Absolute Lymphs (auto) 2.00 (1.0-4.6) Absolute Monos (auto) 0.71 (0.0-1.3) Lymphocytes % 27.4 (24.0-44.0) % Monocytes % 9.7 (0.0-12.0) % Eosinophils % 2.7 (0.00-5.0) % Basophils % 0.7 (0.0-0.4) % Absolute Granulocytes 4.34 (1.4-6.9) Basophils # 0.05 (0-0.4) Sodium 135 L (137-145) mmol/L Potassium 3.3 L D (3.5-5.1) mmol/L Chloride 100 (98-107) mmol/L Carbon Dioxide 28 (22-30) mmol/L Anion Gap 10.1 (5-15) MEQ/L BUN 27 H (7-17) mg/dL Creatinine 1.22 H (0.52-1.04) mg/dL Estimated GFR 45.8 ML/MIN Glucose 102 (74-106) mg/dL POC Glucometer 112 H (74 to 106) mg/dL Hemoglobin A1c (4.5-6.0) % Calcium 9.9 (8.4-10.2) mg/dL Vitamin B12 (239-931) pg/mL TSH 3rd Generation (0.47-4.68) mIU/L Micro Results-Entire Visit: Accuchecks Date 11/04/21 Date 11/03/21 Date 11/03/21 Time 07:38 Time 21:17 Time 16:17 - Radiology Exams Ordered Rad Exams-Entire Visit: Radiology Procedures Category Date Time Status CHEST 1 VIEW (PORTABLE) Stat Exams 11/02/21 11:19 Completed ECHO W/2D AND DOPPLER [US] Routine Exams 11/03/21 Draft HEAD WITHOUT CONTRAST [CT] Stat Exams 11/02/21 11:19 Completed MRI BRAIN W/O CONTRAST [MRI] Stat Exams 11/02/21 14:00 Completed - Procedures and Test Procedures and Tests throughout Hospitalization: Therapy Orders & Screens 11/02/21 14:01 EEG 41-60 Minutes (Normal) ONCE Comment: Reason For Exam: Discharge Exam General Appearance: no apparent distress Neurologic Exam: alert, oriented x 3, cooperative Respiratory Exam: normal breath sounds, lungs clear, No respiratory distress Cardiovascular Exam: regular rate/rhythm, normal heart sounds Gastrointestinal/Abdomen Exam: soft, No tenderness, No mass Extremity Exam: normal inspection, normal range of motion Skin Exam: normal color, warm, dry Final Diagnosis/Problem List - Final Discharge Diagnosis/Problem (1) Altered mental status Current Visit: Yes Status: Acute Assessment & Plan: decreasing xanax dose on discharge, will consult with Dr Corado regarding her belbuca as she is doing better off of this med currently Code(s): R41.82 - ALTERED MENTAL STATUS, UNSPECIFIED (2) Weakness Current Visit: Yes Status: Acute Assessment & Plan: HHC consulted Code(s): R53.1 - WEAKNESS (3) Chronic pain syndrome Current Visit: Yes Status: Acute Code(s): G89.4 - CHRONIC PAIN SYNDROME (4) Diabetes mellitus Current Visit: No Status: Chronic Code(s): E11.9 - TYPE 2 DIABETES MELLITUS WITHOUT COMPLICATIONS (5) Hypertension Current Visit: No Status: Chronic Code(s): I10 - ESSENTIAL (PRIMARY) HYPERTENSION - Discharge Disposition: Home, Self-Care Condition: Stable Prescriptions: New ALPRAZolam 1 MG [Xanax 1 mg] 0.5 mg PO TIDPRN PRN 30 Days #90 tablet PRN Reason: NERVES Continue Metformin HCl 500 mg [Glucophage 500 MG] 500 mg PO BID Lisinopril 10 mg PO DAILY Levothyroxine Sodium 125 mcg PO DAILY Dicyclomine HCl 20 mg [Bentyl 20 mg] 20 mg PO QID Aspirin EC 81 mg [Ecotrin 81 mg] 81 mg PO DAILY Oxcarbazepine 300 mg [Trileptal 300 MG Tablet] 300 mg PO BID Carvedilol 6.25 mg [Coreg 6.25 MG] 6.25 mg PO BID #60 tablet Loratadine 10 mg [Claritin 10 mg] 10 mg PO DAILY Clopidogrel Bisulfate [Clopidogrel] 75 mg PO DAILY Cholecalciferol (Vitamin D3) [Vitamin D3] 50,000 units PO WEEKLY Meclizine HCl 12.5 mg PO TID PRN PRN Reason: Dizziness Oxycodone HCl/Acetaminophen [Oxycodone-Acetaminophn 7.5-325] 7.5 mg PO TID PRN PRN Reason: Pain Trazodone HCl 50 mg [Desyrel 50 mg] 100 mg PO DAILY Methylnaltrexone [place] [Relistor] 3 tab PO DAILY #90 tablet Discontinued ALPRAZolam 0.5 MG [xanAX 0.5 MG] 1 mg PO TID PRN PRN Reason: Anxiety Buprenorphine HCl [Belbuca] 450 mcg BC BID Additional Instructions: reduce xanax to 0.5mg (1/2 tab) three times daily as needed, stay off of belbuca until you followup with Dr Corado REFERRAL WAS SENT TO [facility]. THEY WILL BE MAKING CONTACT TO SET UP A VISIT. THEIR PHONE NUMBER IS [phone] Follow up with: GERARDO EVERETT MD [Primary Care Provider] - 1 Week LANDON CORADO I [NON-STAFF PHY W/O PRIVILEGES] -
[2021-11-04 09:44] LABS: RPR Non Reactive (Non Reactive)
== END 2021-11-04 11:00 | disposition home or self-care (01) ==
LOC: ED 10:41 → MED SURG 15:47
PROVIDERS: ADMIT Family Medicine; ATTEND Family Medicine
DX: R41.82 Altered mental status, unspecified (principal); R53.1 Weakness; G89.4 Chronic pain syndrome; E11.9 Type 2 diabetes mellitus without complications; I10 Essential (primary) hypertension; I25.10 Atherosclerotic heart disease of native coronary artery without angina pectoris; E03.9 Hypothyroidism, unspecified; F41.9 Anxiety disorder, unspecified; Z20.828 Contact with and (suspected) exposure to other viral communicable diseases; Z79.899 Other long term (current) drug therapy
CPT/HCPCS: 0241U; 36000; 36415; 70450; 70551; 71045; 80048; 80053; 80307; 81001; 82607; 82947; 83036; 83605; 83921; 84443; 84484; 85025; 85610; 85730; 86592; 93005; 93306; 93880; 95812; 99285; G0378; G0480; Q3014; J0360; A9270-GY